=== PATIENT | female | born 1960 | race American Indian/Alaskan Native ===

== ENCOUNTER 2017-03-01 14:00 | Emergency (ER) | payer OTHER ==
[2017-03-01 14:01] VITALS: BMI 28.8
[2017-03-01 14:11] VITALS: TEMP 97.9; O2SAT 98
--- NOTE | 2017-03-01 14:41 | ED PDOC ---
Arrival/HPI - General Chief Complaint: Dizziness/Lightheaded Time Seen by Provider: 03/01/17 14:15 Historian: Patient - History of Present Illness Narrative History of Present Illness (Text): 03/01/17 14:41 This 56 yo F w/PMH sig for HIV, HTN, HLD, iron deficiency anemia, hypokalemia, presents to this ED c/o feeling of both ears are clogged x 1 week. Patient noted feeling dizzy x 2 days. Patient stated she saw her doctor at [facility] for same symptoms last wee, who performed labs. She stated labs were normal. She was referred to see ENT for her symptoms. Patient saw Dr. Noel Wade yesterday. Patient stated Dr. Noel Wade examined her, but he did not prescribe patient medication. Patient stated she wants medication for her dizziness. Denies other complains. Time/Duration: > week Context: Home Past Medical History - Provider Review Nursing Documentation Reviewed: Yes - Infectious Disease Hx of Infectious Diseases: None - Tetanus Immunization Tetanus Immunization: Unknown - Cardiac Hx Cardiac Disorders: Yes Hx Angina: No Hx Atrial Fibrillation: No Hx Cardiac Arrhythmia: No Hx Circulatory Problems: No Hx Congestive Heart Failure: No Hx [place]: No Hx Heart Murmur: No Hx Heart Transplant: No Hx Hypertension: Yes Hx Hypotension: No Hx Internal Defibrillator: No Hx Mitral Valve Prolapse: No Hx Pacemaker: No Hx Peripheral Edema: No Hx Peripheral Vascular Disease: No Other/Comment: Aneurysm - Pulmonary Hx Respiratory Disorders: Yes Hx Chronic Obstructive Pulmonary Disease (COPD): Yes - Neurological Hx Neurological Disorder: No - HEENT Hx HEENT Disorder: Yes Hx Blind: Yes (LEFT EYE BLIND) - Renal Hx Renal Disorder: No - Endocrine/Metabolic Hx Endocrine Disorders: Yes Hx Hypothyroidism: Yes - Hematological/Oncological Hx Anemia: Yes - Integumentary Hx Dermatological Disorder: No - Musculoskeletal/Rheumatological Hx Musculoskeletal Disorders: No Hx Back Pain: Yes - Gastrointestinal Hx Gastrointestinal Disorders: Yes Hx Gastroesophageal Reflux: Yes - Genitourinary/Gynecological Hx Genitourinary Disorders: No - Psychiatric Hx Psychophysiologic Disorder: No Hx Substance Use: No - Surgical History Hx Section: Yes (x4) - Anesthesia Hx Anesthesia: Yes Hx Anesthesia Reactions: No Hx Malignant Hyperthermia: No - Suicidal Assessment Feels Threatened In Home Enviroment: No Family/Social History - Physician Review Nursing Documentation Reviewed: Yes Family/Social History: No Known Family HX Smoking Status: Light Smoker < 10 Cigarettes Daily Hx Alcohol Use: No Hx Substance Use: No Hx Substance Use Treatment: No Allergies/Home Meds Allergies/Adverse Reactions: Allergies No Known Allergies Allergy (Verified 03/01/17 14:09) Home Medications: Home Meds Medication Instructions Recorded Confirmed Ritonavir [Norvir] 200 mg PO BID 05/11/14 03/01/17 Amlodipine Besylate [Norvasc] 10 mg PO DAILY 04/13/16 03/01/17 Benazepril HCl [Lotensin] 10 mg PO DAILY 04/13/16 03/01/17 Emtricitabine/Tenofovir Diso 1 tab PO DAILY 04/13/16 03/01/17 [Truvada 200 MG-300 MG] Ferrous Sulfate [Ferosul] 325 mg PO BID 04/13/16 03/01/17 Levothyroxine [Levoxyl] 200 mcg PO DAILY 04/13/16 03/01/17 Multivitamin Daily 1 tab PO DAILY 04/13/16 03/01/17 Potassium 20 20 meq PO DAILY 04/13/16 03/01/17 Tipranavir [Aptivus] 250 mg PO BID 04/13/16 03/01/17 Review of Systems - Review of Systems Constitutional: Normal. absent: Fatigue, Weight Change, Fevers Eyes: Normal ENT: Other (B/L ears feel clogged) Respiratory: Normal. absent: SOB, Cough Cardiovascular: Normal. absent: Chest Pain, Palpitations Gastrointestinal: Normal. absent: Abdominal Pain, Nausea, Vomiting Genitourinary Female: Normal. absent: Dysuria, Frequency, Hematuria Musculoskeletal: Normal. absent: Arthralgias, Back Pain, Neck Pain Skin: Normal. absent: Rash Neurological: Dizziness. absent: Headache, Focal Weakness, Gait Changes, Speech Changes, Facial Droop, Disequilibrium Endocrine: Normal Hemo/Lymphatic: Normal Psychiatric: Normal Physical Exam Vital Signs Temp Pulse Resp BP Pulse Ox 03/01/17 15:33 68 18 118/79 98 03/01/17 14:10 97.9 F 70 19 120/80 98 Temperature: Afebrile Blood Pressure: Normal Pulse: Regular Respiratory Rate: Normal Appearance: Positive for: Well-Appearing, Non-Toxic, Comfortable Pain Distress: None Mental Status: Positive for: Alert and Oriented X 3 - Systems Exam Head: Present: Atraumatic, Normocephalic Pupils: Present: PERRL Extroacular Muscles: Present: EOMI Conjunctiva: Present: Normal Ears: Present: Normal, NORMAL TM, Normal Canal, Other (No hemotympanum). No: Erythema, TM Bulging, TM Perf Mouth: Present: Moist Mucous Membranes Pharnyx: Present: Normal. No: ERYTHEMA, EXUDATE, TONSILS ENLARGED Nose (External): Present: Atraumatic Nose (Internal): Present: Normal Inspection Neck: Present: Normal Range of Motion. No: Meningeal Signs, Lymphadenopathy Respiratory/Chest: Present: Clear to Auscultation, Good Air Exchange. No: Respiratory Distress, Accessory Muscle Use Cardiovascular: Present: Regular Rate and Rhythm, Normal S1, S2. No: Murmurs Abdomen: Present: Normal Bowel Sounds. No: Tenderness, Distention, Peritoneal Signs Back: Present: Normal Inspection. No: CVA Tenderness Upper Extremity: Present: Normal Inspection, Normal ROM, NORMAL PULSES, Neurovascularly Intact, Capillary Refill < 2s. No: Cyanosis, Edema Lower Extremity: Present: Normal Inspection. No: Edema Neurological: Present: GCS=15, CN II-XII Intact, Speech Normal, Motor Func Grossly Intact, Normal Sensory Function, Normal Cerebellar Funct, Norm Deep Tendon Reflexes, Gait Normal, Memory Normal Skin: Present: Warm, Dry, Normal Color. No: Rashes Psychiatric: Present: Alert, Oriented x 3, Normal Insight, Normal Concentration Medical Decision Making ED Course and Treatment: 03/01/17 16:24 Re-evaluation. Patient feels better. Discussed results and plan with patient who expresses understanding. All questions answered and there is agreement with the plan to discharge home with instructions. Patient stable for discharge. Return if symptoms persist or worsen. Patient stated feeling better. Denies dizziness at this time. Patient has a normal gait. Re-evaluation Time: 16:25 Reassessment Condition: Re-examined, Improved - Medication Orders Current Medication Orders: Discontinued Medications Meclizine HCl (Antivert) 25 mg PO STAT STA Stop: 03/01/17 14:40 Last Admin: 03/01/17 15:09 Dose: 25 mg Meclizine HCl (Antivert) 25 mg PO STAT STA Stop: 03/01/17 15:20 Disposition/Present on Arrival - Present on Arrival Any Indicators Present on Arrival: No History of DVT/PE: No History of Uncontrolled Diabetes: No Urinary Catheter: No History of Decub. Ulcer: No History Surgical Site Infection Following: None - Disposition Have Diagnosis and Disposition been Completed?: Yes Diagnosis: Dizziness, nonspecific Disposition: HOME/ ROUTINE Disposition Time: 16:26 Patient Plan: Discharge Condition: GOOD Discharge Instructions (ExitCare): Dizziness (ED) Additional Instructions: Call Dr. Brittny Wade office for follow up visit, and revaluation. Take medication as instructed. Return to near ER if symptoms worsen. Prescriptions: Meclizine [Meclizine*] 25 mg PO Q6 PRN #30 tab PRN Reason: Dizziness Referrals: Nadja Simpson MD [Primary Care Provider] - Follow up with primary
[2017-03-01 15:33] VITALS: RESP 18
[2017-03-01 16:26] VITALS: BP 121/84; PULSE 65
--- NOTE | 2017-03-01 17:07 | CARD ---
APPROVED REPORT EKG Measurement Heart [id number] <Conclusion> Normal sinus rhythm Nonspecific T wave abnormality Abnormal ECG
== END 2017-03-01 16:30 | disposition home or self-care (01) ==
LOC: ED 14:00
DX: R42 Dizziness and giddiness (principal); I10 Essential (primary) hypertension; D50.9 Iron deficiency anemia, unspecified; Z72.0 Tobacco use

== ENCOUNTER 2017-03-28 09:42 | Inpatient (IN) | payer OTHER ==
[2017-03-28 10:04] VITALS: BMI 28.3
[2017-03-28 11:06] LABS: URINE BILIRUBIN NEGATIVE (NEGATIVE); URINE BLOOD NEGATIVE (NEGATIVE); URINE GLUCOSE (UA) NEGATIVE (NEGATIVE); URINE LEUKOCYTE ESTERASE NEGATIVE Leu/uL (NEGATIVE); URINE NITRATE NEGATIVE (NEGATIVE); URINE PROTEIN TRACE mg/dL (<30 mg/dL); URINE UROBILINOGEN 0.2 E.U./dL (<1 E.U./dL)
[2017-03-28 11:09] LABS: URINE APPEARANCE CLEAR (CLEAR); URINE COLOR YELLOW (YELLOW)
[2017-03-28 11:13] LABS: BASO # 0.01 K/mm3 (0.0-2.0); BASO % 0.1 % (0.0-3.0); GRAN # 12.11 (1.4-6.5); GRAN % 78.5 % (50.0-68.0); HEMOGLOBIN 12.2 gm/dL (12.0-16.0); LYMPH # 2.8 (1.2-3.4); MEAN CORPUSCULAR HEMOGLOBIN 30.4 pg (25.0-35.0); MEAN CORPUSCULAR HGB CONC 33.1 g/dl (31.0-37.0); MEAN PLATELET VOLUME 10.9 fl (7.0-11.0); MONO # 0.5 (0.1-0.6); MONO % 3.4 % (1.0-6.0); PLATELET COUNT 198 10^3/uL (120.0-450.0); RBC 4.01 10^6/uL (3.5-6.1); RED CELL DISTRIBUTION WIDTH 14.6 % (11.5-14.5); WHITE BLOOD COUNT 15.4 10^3/ul (4.5-11.0)
[2017-03-28 11:17] LABS: INR 0.98 (0.93-1.08); PARTIAL THROMBOPLASTIN TIME 25.5 Seconds (23.7-30.8); PROTHROMBIN TIME 10.6 Seconds (9.9-11.8)
[2017-03-28 11:18] LABS: ALB/GLOB RATIO 1.2 (1.1-1.8); ALBUMIN 4.3 g/dL (3.0-4.8); ALT/SGPT 25 U/L (7-56); AST/SGOT 16 U/L (15-39); BLOOD UREA NITROGEN 17 mg/dL (7-21); CALCIUM 9.7 mg/dL (8.4-10.5); GFR AFRICAN-AMERICAN > 60; GFR NON-AFRICAN AMERICAN > 60; LIPASE 79 U/L (23-300)
--- NOTE | 2017-03-28 11:18 | ED PDOC ---
Arrival/HPI - General Historian: Patient - History of Present Illness Time/Duration: 1 week, Other (2days) Symptom Onset: Gradual Symptom Course: Worsening Quality: Aching, Pressure Severity Level: 3 - General Chief Complaint: Chest Pain Time Seen by Provider: 03/28/17 10:20 - History of Present Illness Narrative History of Present Illness (Text): 03/28/17 11:13 56yr old female presents today with chest pain, abdominal pain, leg pain, headaches, and bodyaches. pt states that she has been on antibiotic (augmentin) for ear infection and cough. pt with hx of HIV, states she is not always compliant with medications. pt states she just isnt feeling right today and just hasnt been feeling right for the past couple of days. pt states he has had continued productive cough despite antibiotics. pt states she is occasionally feeling dizzy. denies fevers at home. no urinary symptoms. Denies headache at present time. no other complaints. (Penelope Arguelles) Past Medical History - Provider Review Nursing Documentation Reviewed: Yes - Travel History Have you recently traveled outside [place] w/in the past 3 mons?: No - Infectious Disease Hx of Infectious Diseases: None - Tetanus Immunization Tetanus Immunization: Unknown - Cardiac Hx Cardiac Disorders: Yes Hx Angina: No Hx Atrial Fibrillation: No Hx Cardiac Arrhythmia: No Hx Circulatory Problems: No Hx Congestive Heart Failure: No Hx NH: No Hx Heart Murmur: No Hx Heart Transplant: No Hx Hypertension: Yes Hx Hypotension: No Hx Internal Defibrillator: No Hx Mitral Valve Prolapse: No Hx Pacemaker: No Hx Peripheral Edema: No Hx Peripheral Vascular Disease: No Other/Comment: Aneurysm - Pulmonary Hx Respiratory Disorders: Yes Hx Chronic Obstructive Pulmonary Disease (COPD): Yes - Neurological Hx Neurological Disorder: No - HEENT Hx HEENT Disorder: Yes Hx Blind: Yes (LEFT EYE BLIND) - Renal Hx Renal Disorder: No - Endocrine/Metabolic Hx Endocrine Disorders: Yes Hx Hypothyroidism: Yes - Hematological/Oncological Hx Anemia: Yes - Integumentary Hx Dermatological Disorder: No - Musculoskeletal/Rheumatological Hx Musculoskeletal Disorders: No Hx Back Pain: Yes - Gastrointestinal Hx Gastrointestinal Disorders: Yes Hx Gastroesophageal Reflux: Yes - Genitourinary/Gynecological Hx Genitourinary Disorders: No - Psychiatric Hx Psychophysiologic Disorder: No Hx Substance Use: Yes - Surgical History Hx Section: Yes (x4) Other/Comment: L leg surgery. Uterine biopsy - Anesthesia Hx Anesthesia: Yes Hx Anesthesia Reactions: No Hx Malignant Hyperthermia: No - Suicidal Assessment Feels Threatened In Home Enviroment: No Family/Social History - Physician Review Nursing Documentation Reviewed: Yes Family/Social History: Unknown Family HX Smoking Status: Heavy Smoker > 10 Cigarettes Daily Hx Alcohol Use: No Hx Substance Use: Yes Substance used: cocaine/heroine Hx Substance Use Treatment: No Allergies/Home Meds Allergies/Adverse Reactions: Allergies No Known Allergies Allergy (Verified 03/01/17 14:09) Home Medications: Home Meds Medication Instructions Recorded Confirmed Ritonavir [Norvir] 0 mg PO BID 05/11/14 03/28/17 Amlodipine Besylate [Norvasc] 10 mg PO DAILY 04/13/16 03/28/17 Benazepril HCl [Lotensin] 10 mg PO DAILY 04/13/16 03/28/17 Emtricitabine/Tenofovir Diso 1 tab PO DAILY 04/13/16 03/28/17 [Truvada 200 MG-300 MG] Levothyroxine [Levoxyl] 200 mcg PO DAILY 04/13/16 03/28/17 Multivitamin Daily 1 tab PO DAILY 04/13/16 03/28/17 Potassium 20 20 meq PO DAILY 04/13/16 03/28/17 Tipranavir [Aptivus] 250 mg PO BID 04/13/16 03/28/17 Amoxicillin/Potassium Clav 1 tab PO BID 03/28/17 03/28/17 [Amoxicillin/Clavulanate Potassium 875 mg-125 ] Atorvastatin [Lipitor] 20 mg PO DAILY 03/28/17 03/28/17 Emtricitabine/Tenofov Alafenam 1 each PO DAILY 03/28/17 03/28/17 [Descovy 200-25 mg Tablet] Review of Systems - Review of Systems Constitutional: Fatigue. absent: Fevers ENT: Sinus Congestion. absent: Sore Throat Respiratory: Cough. absent: SOB Cardiovascular: Chest Pain Gastrointestinal: Abdominal Pain. absent: Nausea, Vomiting Genitourinary Female: absent: Dysuria Musculoskeletal: Arthralgias. absent: Back Pain, Neck Pain Skin: absent: Rash, Pruritis Neurological: Headache, Dizziness Psychiatric: absent: Anxiety, Depression Physical Exam Vital Signs Reviewed: Yes Temperature: Afebrile Blood Pressure: Normal Pulse: Regular Respiratory Rate: Normal Appearance: Positive for: Well-Appearing, Non-Toxic, Comfortable Pain Distress: None Mental Status: Positive for: Alert and Oriented X 3 - Systems Exam Head: Present: Atraumatic Conjunctiva: Present: Normal Ears: Present: Normal, NORMAL TM. No: Erythema Mouth: Present: Moist Mucous Membranes. No: Dry, Drooling Pharnyx: Present: Normal Nose (Internal): Present: Normal Inspection Neck: Present: Normal Range of Motion Respiratory/Chest: Present: Good Air Exchange. No: Clear to Auscultation, Respiratory Distress, Accessory Muscle Use, Wheezes, Retracting, Rhonchi, Tachypneic, Tender to Palpation Cardiovascular: Present: Regular Rate and Rhythm. No: Murmurs Abdomen: No: Tenderness, Distention, Rebound, Guarding Back: Present: Normal Inspection Upper Extremity: Present: Normal Inspection, Normal ROM Lower Extremity: Present: Normal Inspection. No: CALF TENDERNESS, Tenderness Neurological: Present: GCS=15, Speech Normal, Gait Normal Skin: Present: Warm, Dry, Normal Color. No: Rashes Psychiatric: Present: Alert, Oriented x 3 Vital Signs Temp Pulse Resp BP Pulse Ox 03/28/17 19:40 53 L 16 140/101 H 98 03/28/17 17:54 98.5 F 62 18 150/85 100 03/28/17 14:30 88 18 154/89 H 98 03/28/17 12:30 80 16 151/82 H 99 03/28/17 10:22 51 L 19 158/90 H 97 03/28/17 10:06 98.1 F 59 L 18 142/88 96 Medical Decision Making ED Course and Treatment: 03/28/17 11:16 56yr old female with cp and cough, abdominal pain. currently on augmentin. cbc: wbc; 15.4 cmp: glucose; 113 trop: wnl ekg; normal sinus rhythm at 65 bpm normal axis normal intervals no ST elevations 03/28/17 11:22 chest xray Creator : Agustina Porras MD IMPRESSION: No active pulmonary disease. Borderline cardiomegaly. blood cultures pending. rocephin and zithromax started IV. though negative chest xray. will treat for CAP; as patient has been augmentin, with continued cough, now with leukocytosis. will admit observational status to med/surg for weakness, leukocytosis, cough in HIV + patient with failure of outpatient abx. ? CAP. case discussed with dr. pierce. Impression; weakness, cough, leukocytosis, admit observational status to med/surg (Penelope Arguelles) - Lab Interpretations Lab Results: 03/28/17 11:00 03/28/17 11:00 Lab Results 03/28/17 11:30: Urine HCG, Qual Negative 03/28/17 11:00: WBC 15.4 H D, RBC 4.01, Hgb 12.2, Hct 36.9, MCV 92.0, MCH 30.4, MCHC 33.1, RDW 14.6 H, Plt Count 198, MPV 10.9, Gran % 78.5 H, Lymph % (Auto) 18.0 L, [place] % (Auto) 3.4, Eos % (Auto) 0.0 L, Baso % (Auto) 0.1, Gran # 12.11 H , Lymph # 2.8, [place] # 0.5, Eos # 0.0, Baso # 0.01 03/28/17 11:00: Sodium 145, Potassium 3.9, Chloride 108 H, Carbon Dioxide 26, Anion Gap 15, BUN 17, Creatinine 0.8, Est GFR ( Amer) > 60, Est GFR (Non- Af Amer) > 60, Random Glucose 113 H, Calcium 9.7, Total Bilirubin 0.4, AST 16, ALT 25, Alkaline Phosphatase 89, Lactate Dehydrogenase 462, Total Creatine Kinase 70, Troponin I < 0.01, Total Protein 7.8, Albumin 4.3, Globulin 3.5, Albumin/Globulin Ratio 1.2, Lipase 79 03/28/17 11:00: Urine Color Yellow, Urine Appearance Clear, Urine pH 6.0, Ur Specific [place] 1.020, Urine Protein Trace H, Urine Glucose (UA) Negative, Urine Ketones Negative, Urine Blood Negative, Urine Nitrate Negative, Urine Bilirubin Negative, Urine Urobilinogen 0.2, Ur Leukocyte Esterase Negative, Urine RBC Negative, Urine WBC 0 - 2, Ur Epithelial Cells 0 - 2, Urine Bacteria Trace 03/28/17 11:00: PT 10.6, INR 0.98, APTT 25.5 - RAD Interpretation Radiology Orders: 03/28/17 10:22 CHEST PORTABLE [RAD] Stat - Medication Orders Current Medication Orders: Hydroxyzine HCl (Atarax) 25 mg PO Q6H PRN PRN Reason: Itching / Pruritus Discontinued Medications Ceftriaxone Sodium (Rocephin 1 Gram Ivpb) 1 gm in 100 mls @ 200 mls/hr IVPB STAT STA PRN Reason: Protocol Stop: 03/28/17 18:07 Last Admin: 03/28/17 19:37 Dose: 200 mls/hr Azithromycin (Zithromax 500mg In Ns) 500 mg in 250 mls @ 167 mls/hr IVPB STAT STA PRN Reason: Protocol Stop: 03/28/17 19:07 Disposition/Present on Arrival - Present on Arrival Any Indicators Present on Arrival: No History of DVT/PE: No History of Uncontrolled Diabetes: No Urinary Catheter: No History of Decub. Ulcer: No History Surgical Site Infection Following: None - Disposition Have Diagnosis and Disposition been Completed?: Yes Disposition Time: 17:15 Patient Plan: Observation - Disposition Diagnosis: Weakness, Cough, Leukocytosis Disposition: HOSPITALIZED Condition: FAIR
--- NOTE | 2017-03-28 11:20 | RAD ---
HISTORY: Chest pain COMPARISON: 04/12/2016. FINDINGS: LUNGS: The lungs are well inflated and clear. PLEURA: No significant pleural effusion identified, no pneumothorax apparent. CARDIOVASCULAR: There is borderline cardiomegaly. OSSEOUS STRUCTURES: No significant abnormalities. VISUALIZED UPPER ABDOMEN: Normal. OTHER FINDINGS: None. IMPRESSION: No active pulmonary disease. Borderline cardiomegaly.
[2017-03-28 11:23] LABS: URINE BACTERIA TRACE (NEG); URINE EPITHELIAL CELLS 0 - 2 /hpf (0-5); URINE RBC NEGATIVE /hpf (0-2); URINE WBC 0 - 2 /hpf (0-6)
[2017-03-28 11:30] LABS: TROPONIN I < 0.01 ng/mL
[2017-03-28] MEDS ORDERED: cefTRIAXone 1 gm 1 GM/100 ML BAG IVPB STA (17:38)
[2017-03-28] MEDS ORDERED: Azithromycin 500MG/NS 250ml 500 MG/250 ML BAG IVPB STA (17:38)
--- NOTE | 2017-03-28 20:57 | CARD ---
APPROVED REPORT EKG Measurement Heart [id number] <Conclusion> Normal sinus rhythm Nonspecific T wave abnormality Abnormal ECG
[2017-03-28] MEDS ORDERED: Albuterol-Ipratrop 3 mg / 0.5 (3 ml) UD IH PRN (21:27)
[2017-03-28 21:35] VITALS: O2SAT 99
--- NOTE | 2017-03-28 21:45 | CP.PCM.HP ---
<DAIN SOLOMON - Last Filed: 03/28/17 23:06> History of Present Illness - History of Present Illness History of Present Illness: Pt is a 56 yo F with a PMHx of HIV, hypothyroidism, HTN, possible AAA, anemia, HLD presents with cc of CP and generalized weakness. Pt states that non- localized CP started last night of insidious onset along with generalized body aches and weakness. In addition, pt c/o chills, fevers, diaphoresis, and some SOB. Pt states that pain is similar to past occurrences. Pt denied any alleviating or aggravating factors. In the ED, pt reports CP has currently subsided, but body and leg discomfort/aches persist. Pt states that generalized weakness began after starting Medrol dose pack for otitis media 3 days ago. Pt is currently on day 3 of Augmentin for treatment of otitis media. Pt initially complained of b/l ear pain and productive cough. Pt states that the ear pain is R>L, but is steadily improving. Pt also c/o of itching and rash on b/l hands and fingers, in which she is currently being treated with permethrin topical, erythromycin topical, and ivermectin (completed). Pt denied palpatations, wheezing, abdominal pain, n/v, constipation, diarrhea, dysuria, or polyuria. PMHx: HIV, Left eye blindness, hypothyroidism, COPD, HTN, possible AAA, anemia, HLD Sur c-sections, left ankle surgery, uterine surgery FHx: prostate cancer, DM, HTN, HLD, CKD SH: 10 cig/day for 40 yrs, heroine and cocaine use (last used 8 yrs ago), denied alcohol use All: NKDA Medications: Tipranavir 250 mg BID Synthroid 200 mcg daily Benazepril 10 mg daily Lipitor 20 mg HS Norvasc 10 mg daily Emtricitabine/Tenofor daily Ritonavir 100 mg daily KCl 20 meq PO daily Multivitamin Medrol dose pack (finished 2 days) Erythromycin 2% topical Permethrin 5% topical Ivermectin 3 mg QID Augmentin 875-125 mg BID Present on Admission - Present on Admission Any Indicators Present on Admission: No Review of Systems - Review of Systems All systems: reviewed and no additional remarkable complaints except (hpi) Past Patient History - Infectious Disease Hx of Infectious Diseases: None - Tetanus Immunizations Tetanus Immunization: Unknown - Past Medical History & Family History Past Medical History?: Yes - Past Social History Smoking Status: Heavy Smoker > 10 Cigarettes Daily - CARDIAC Hx Cardiac Disorders: Yes Hx Angina: No Hx Atrial Fibrillation: No Hx Cardia Arrhythmia: No Hx Circulatory Problems: No Hx Congestive Heart Failure: No Hx Heart Attack: No Hx Heart Murmur: No Hx Heart Transplant: No Hx Hypertension: Yes Hx Hypotension: No Hx Internal Defibrillator: No Hx Mitral Valve Prolapse: No Hx Pacemaker: No Hx Peripheral Edema: No Hx Peripheral Vascular Disease: No Other/Comment: Aneurysm - PULMONARY Hx Respiratory Disorders: Yes Hx Chronic Obstructive Pulmonary Disease (COPD): Yes - NEUROLOGICAL Hx Neurological Disorder: No - HEENT Hx HEENT Problems: Yes Hx Blind: Yes (LEFT EYE BLIND) - RENAL Hx Chronic Kidney Disease: No - ENDOCRINE/METABOLIC Hx Endocrine Disorders: Yes Hx Hypothyroidism: Yes - HEMATOLOGICAL/ONCOLOGICAL Hx Anemia: Yes - INTEGUMENTARY Hx Dermatological Problems: No - MUSCULOSKELETAL/RHEUMATOLOGICAL Hx Musculoskeletal Disorders: No Hx Back Pain: Yes - GASTROINTESTINAL Hx Gastrointestinal Disorders: Yes Hx Gastroesophageal Reflux: Yes - GENITOURINARY/GYNECOLOGICAL Hx Genitourinary Disorders: No - PSYCHIATRIC Hx Psychophysiologic Disorder: No Hx Substance Use: Yes - SURGICAL HISTORY Hx Section: Yes (x4) Other/Comment: L leg surgery. Uterine biopsy - ANESTHESIA Hx Anesthesia: Yes Hx Anesthesia Reactions: No Hx Malignant Hyperthermia: No Meds Allergies/Adverse Reactions: Allergies Allergy/AdvReac Type Severity Reaction Status Date / Time No Known Allergies Allergy Verified 03/01/17 14:09 Physical Exam - Constitutional Appears: No Acute Distress - Head Exam Head Exam: ATRAUMATIC, NORMOCEPHALIC - Eye Exam Eye Exam: EOMI, Normal appearance, PERRL. absent: Conjunctival injection, Periorbital swelling - ENT Exam ENT Exam: Mucous Membranes Moist Additional comments: B/L TM erythema R>L, no bulging, pus, injection, external auditory canal non- erythematous - Neck Exam Neck exam: Positive for: Full Rom. Negative for: Tenderness, Thyromegaly - Respiratory Exam Respiratory Exam: Clear to Auscultation Bilateral. absent: Rales, Rhonchi, Wheezes - Cardiovascular Exam Cardiovascular Exam: RRR, +S1, +S2. absent: Diastolic murmur, Gallop, Rubs, Systolic Murmur - GI/Abdominal Exam GI & Abdominal Exam: Distended, Soft. absent: Firm, Guarding, Rebound, Tenderness - Extremities Exam Extremities exam: Positive for: full ROM. Negative for: calf tenderness, joint swelling, pedal edema, tenderness - Neurological Exam Neurological exam: Alert, CN II-XII Intact, Oriented x3, Reflexes Normal - Psychiatric Exam Psychiatric exam: Normal Affect - Skin Skin Exam: Dry, Intact, Rash Additional comments: Scaling rash in webs of fingers b/l Results - Vital Signs Recent Vital Signs: Last Vital Signs Temp 98.5 F 03/28/17 17:54 Pulse 53 L 03/28/17 19:40 Resp 16 03/28/17 21:34 BP 140/101 H 03/28/17 19:40 Pulse Ox 99 03/28/17 21:34 - Labs Result Diagrams: 03/28/17 11:00 03/28/17 11:00 Assessment & Plan - Assessment and Plan (Free Text) Assessment: 56 yo female with PMHx of HIV, hypothyroidism, HTN, HLD, and COPD to be admitted for evaluation and treatment of generalized weakness 2/2 acute side effects of polypharmacy and CP. 1. Generalized Body Aches/Weakness -Leukocytosis likely due to side effect of methylprednisolone -Hold methylprednisolone -No evidence of dehydration as BUN/Cr and electrolytes normal -IVF 1L at 100 ml/hr -CK 70 r/o rhabdomyolysis 2. Otitis Media -Mild erythema appreciated, no swelling, pus, or fullness -Cont. PO Augmentin 3. Atypical Chest Pain -Serial troponin (1st trop negative) -EKG shows NSR with some flattening of T wave -CXR shows borderline cardiomegaly -Echocardiogram from 11/2015 shows EF 61.7% -Cont to monitor for acute onset CP 4. Leg Pain -Pt reports only discomfort in b/l legs, not pain; no evidence of swelling or erythema -Possibly 2/2 methylprednisolone -Will monitor 5. R/o scabies -Follow treatment plan as per derm -Cont topical erythromycin and permethrin -Hydroxyzine for pruritis -Contact precautions -ID consulted 6. HIV -Cont Tipranavir, Emtricitabine/Tenofor, Ritonavir 7. HTN -Cont Benazepril and Norvasc -HHD 8. Hypothyroidism -Cont synthroid 9. COPD -Duoneb Q6H PRN 10. H/o recurrent hypokalemia -Cont KCl 20 meq daily, multivitamin 11. Tobacco abuse -Nicoderm 14 mg patch -Counselled on risks of tobacco use and advised cessation 12. GI/DVT PPx -Protonix -SCDs Pt was seen and discussed in detail with Dr. Shook. <Sebas Shook Q - Last Filed: 03/28/17 23:17> Results - Vital Signs Recent Vital Signs: Last Vital Signs Temp 98.5 F 03/28/17 23:07 Pulse 53 L 03/28/17 23:07 Resp 16 03/28/17 23:07 BP 140/101 H 03/28/17 23:07 Pulse Ox 99 03/28/17 21:34 - Labs Result Diagrams: 03/28/17 11:00 03/28/17 11:00 Attending/Attestation - Attestation I have personally seen and examined this patient.: Yes I have fully participated in the care of the patient.: Yes I have reviewed all pertinent clinical information: Yes
[2017-03-28] MEDS ORDERED: Pneumococcal 23-Valent Vaccine IM ONE (23:15)
[2017-03-28] MEDS: Amoxicillin-Clav 875-125 mg Tab PO SCH (23:17)
[2017-03-29] MEDS: [UNRECOGNIZED DRUG - OTHER] PO SCH ×3 (02:25→17:10)
[2017-03-29] MEDS: Sodium Chloride 0.9% 1,000 ML IV SCH ×2 (02:27→10:38)
[2017-03-29] MEDS: Levothyroxine 200 MCG TAB PO SCH (06:45)
[2017-03-29 07:16] LABS: HEMOGLOBIN 11.3 gm/dL (12.0-16.0); MEAN CELL VOLUME 92.4 fL (80.0-105.0); MEAN CORPUSCULAR HEMOGLOBIN 29.7 pg (25.0-35.0); MEAN CORPUSCULAR HGB CONC 32.1 g/dl (31.0-37.0); MEAN PLATELET VOLUME 10.7 fl (7.0-11.0); RBC 3.81 10^6/uL (3.5-6.1); WHITE BLOOD COUNT 11.5 10^3/ul (4.5-11.0)
[2017-03-29 08:19] LABS: BLOOD UREA NITROGEN 14 mg/dL (7-21); CALCIUM 8.8 mg/dL (8.4-10.5); GFR AFRICAN-AMERICAN > 60; GFR NON-AFRICAN AMERICAN > 60
[2017-03-29 08:28] VITALS: RESP 20
[2017-03-29 08:37] LABS: TROPONIN I < 0.01 ng/mL
[2017-03-29 09:49] LABS: HDL CHOLESTEROL 44 mg/dL (29-60); MAGNESIUM 1.8 mg/dL (1.7-2.2)
[2017-03-29 10:00] LABS: LDL CHOLESTEROL 97 mg/dL (0-129)
[2017-03-29 10:10] LABS: FREE T4 0.53 ng/dL (0.78-2.19); T4 4.4 ug/dL (5.5-11.0)
[2017-03-29] MEDS: Potassium Chloride 40 mEq/30 ml LIQ UD PO STA ×2 (10:34→11:00)
[2017-03-29] MEDS: Multivitamin Therapeutic Tab PO SCH ×2 (10:37→10:56)
[2017-03-29] MEDS: ETHANOL TP SCH (10:37)
[2017-03-29] MEDS: Emtricitabine-Tenofovir 200 mg-300 mg Tab PO SCH ×2 (10:37→10:57)
[2017-03-29] MEDS: ERYTHROMYCIN BASE TP SCH (10:37)
[2017-03-29] MEDS: Amoxicillin-Clav 875-125 mg Tab PO SCH ×2 (10:37→10:59)
[2017-03-29] MEDS: Permethrin 5% Cream(60 gm) TOP SCH (10:56)
--- NOTE | 2017-03-29 12:38 | CT ---
PROCEDURE: CT HEAD WITHOUT CONTRAST. HISTORY: dizziness COMPARISON: Prior head CT dated 04/12/2016 TECHNIQUE: Axial computed tomography images were obtained through the head/brain without intravenous contrast. Radiation dose: Total exam DLP = 701 mGy-cm. This CT exam was performed using one or more of the following dose reduction techniques: Automated exposure control, adjustment of the mA and/or kV according to patient size, and/or use of iterative reconstruction technique. FINDINGS: HEMORRHAGE: No intracranial hemorrhage. BRAIN: No mass effect or edema. Trace diffuse cerebral atrophy is reiterated however there is no prominent volume loss and there is no mass effect or cortical edema identified throughout. Post fossa contents and brainstem appear normal in overall density. VENTRICLES: Unremarkable. No hydrocephalus. CALVARIUM: Unremarkable. PARANASAL SINUSES: Unremarkable as visualized. No significant inflammatory changes. MASTOID AIR CELLS: Interval right mastoiditis identified. OTHER FINDINGS: None. IMPRESSION: Stable head CT exhibiting only limited diffuse cerebral atrophy once again. Brain examination unremarkable no acute findings appreciated. Follow-up MRI or CT are available if clinically warranted. Interval right mastoiditis identified.
[2017-03-29] MEDS ORDERED: Potassium Chloride 20 mEq ER Tab PO STA (13:05)
--- NOTE | 2017-03-29 14:22 | CT ---
PROCEDURE: CT SINUSES WITHOUT CONTRAST HISTORY: r/o sinusitis, mastoiditis COMPARISON: None TECHNIQUE: Contiguous axial CT images of the paranasal sinuses were obtained. Coronal and sagittal reformats were generated. Radiation dose: Total exam DLP = 316 mGy-cm. This CT exam was performed using one or more of the following dose reduction techniques: Automated exposure control, adjustment of the mA and/or kV according to patient size, and/or use of iterative reconstruction technique. FINDINGS: FRONTAL SINUSES: The bilateral frontal sinuses are clear however the right frontal sinus appears hypo developed. The bilateral frontal recesses appear widely patent. ETHMOID SINUSES: The bilateral ethmoid air cells are well developed and aerated diffusely. The sphenoid ethmoidal recesses appear widely patent. SPHENOID SINUSES: Well-developed and aerated. MAXILLARY SINUSES: The right maxillary sinus is remarkable for a small likely retention cyst or polyp is not completely excluded here. Left maxillary sinus is clear. The bilateral maxillary ostia appear patent. SINUS DRAINAGE: Osteomeatal complexes, frontal recesses and sphenoethmoid recesses clear. NASAL SEPTUM: Deviated to the right. No destructive lesion. MASS: None. SKULL BASE: Unremarkable. TEMPORAL BONES: Middle ears and mastoid grossly unremarkable. 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 Milder right mastoiditis. Minimal left mastoiditis. IMPRESSION: Small right mastoid sinus polyp or cyst is identified with remaining remaining impairs sinuses clear as discussed above. The right frontal sinus appears hypo developed. Right nasal septal deviation.
--- NOTE | 2017-03-29 16:48 | CP.PCM.PN ---
<LienSkyler - Last Filed: 03/29/17 16:49> Subjective - Date & Time of Evaluation Date of Evaluation: 03/29/17 Time of Evaluation: 09:00 - Subjective Subjective: Hospital Course: Ms. Bowers is a 56 y/o woman with a past medical history admitted to the hospitalist service following presentation to ED for chest pain and generalized weakness. The pt states that she had new-onset generalized chest pain and nonspecific weakness/lethargy last night. She describes the leg pain as shooting in quality, and diffuse. Associated symptoms included myalgias, fever, chills, diaphoresis, and mild dyspnea. On admission, the patient complains of lightheadedness, dizziness, visual changes described as spots, and ear fullness worse on the R ear. The patient is currently being followed by a provider for a chronic malignant otitis media, she in 3 days into a Medrol dose pack and amoxicillin/clavulanic acid. She has no hx of migraine PERSAUD. She notes hx of constipation. She also notes itching over her hands, bilaterally. She denies nausea, vomiting, headache, chest pain, diarrhea, dysuria or other urinary complaints on evaluation. She notes ongoing bilateral LE pain and feeling of weakness in her legs. She states that she is hungry following her first meal today and requests a second breakfast tray. Patient medical history is significant for HIV, dementia, HCV infection, abdominal aortic aneurysm, hypothyroid, HTN, and dyslipidemia. The patient has a long history of medical non-compliance. She denies drug use and alcohol use. She smokes 1 ppd. She has a history of crack-cocaine use (pipe, denies IV), but has not used in 8 years. Medical history is limited secondary to hx of dementia. HPI: Patient s&e at bedside. Currently, her CP is better as well as her dizziness, but she still complains of b/l LE weakness. CT Head has been ordered. Objective - Vital Signs/Intake and Output Vital Signs (last 24 hours): Temp Pulse Resp BP Pulse Ox 98.7 F 56 L 20 131/90 99 03/29/17 07:30 03/29/17 07:30 03/29/17 07:30 03/29/17 07:30 03/29/17 07:30 - Medications Medications: Current Medications Amlodipine Besylate (Norvasc) 10 mg PO DAILY RON Last Admin: 03/29/17 10:59 Dose: Not Given Atorvastatin Calcium (Lipitor) 20 mg PO DAILY [facility] Last Admin: 03/29/17 10:59 Dose: Not Given Doxycycline Hyclate (Doryx) 100 mg PO Q12 RON PRN Reason: Protocol Stop: 04/07/17 22:01 Emtricitabine/Tenofovir (Truvada 200 Mg-300 Mg) 1 tab PO DAILY [facility] Last Admin: 03/29/17 10:57 Dose: Not Given Hydroxyzine HCl (Atarax) 25 mg PO Q6H PRN PRN Reason: Itching / Pruritus Sodium Chloride (Sodium Chloride 0.9%) 1,000 mls @ 100 mls/hr IV .Q10H [facility] Last Admin: 03/29/17 10:38 Dose: 100 mls/hr Piperacillin Sod/Tazobactam Sod (Zosyn 3.375 In Ns 100ml) 100 mls @ 200 mls/hr IVPB Q6 RON PRN Reason: Protocol Stop: 04/12/17 18:01 Levothyroxine Sodium (Synthroid) 200 mcg PO 0600 [facility] Last Admin: 03/29/17 06:45 Dose: 200 mcg Lisinopril (Zestril) 10 mg PO DAILY [facility] Last Admin: 03/29/17 10:57 Dose: Not Given Multivitamins (Thera Tab) 1 tab PO DAILY [facility] Last Admin: 03/29/17 10:56 Dose: Not Given Nicotine (Nicoderm Cq) 1 patch TD DAILY [facility] Last Admin: 03/29/17 10:59 Dose: Not Given Tipranavir [Aptivus] (250 Mg- Home Med) 250 mg PO BID [facility] Last Admin: 03/29/17 10:38 Dose: Not Given Non-Formulary Medication (Erythromycin Base/Ethanol [Erythromycin 2% Gel]) 30 gm TP DAILY [facility] Last Admin: 03/29/17 10:37 Dose: Not Given Pantoprazole Sodium (Protonix Inj) 40 mg IVP DAILY [facility] Last Admin: 03/29/17 10:34 Dose: 40 mg Permethrin (Permethrin 5% Cream) 0 gm TOP DAILY [facility] Last Admin: 03/29/17 10:56 Dose: Not Given Ritonavir (Norvir) 100 mg PO BID [facility] Last Admin: 03/29/17 10:59 Dose: Not Given - Labs Labs: PT 10.6 Seconds (9.9-11.8) 03/28/17 11:00 INR 0.98 (0.93-1.08) 03/28/17 11:00 APTT 25.5 Seconds (23.7-30.8) 03/28/17 11:00 - Additional Findings Additional findings: Vitals: T 98.7 HR 56 RR 20 BP 131/90 General: well-appearing, well-nourished, woman in NAD. Afebrile. HEENT: head atraumatic, normocephalic. L eye external exam significant for . Blind in L eye. Neck: good active ROM without pain. No JVD noted bilaterally. Lungs: normal work of breathing. No retractions or accessory m. use. Heart: Abdomen: Normal bowel sounds. Soft, NT. Distended appearance. No palpable spleen. No fluid wave appreciated. MSK: Skin: multiple pruritic 5mm linear burrows over interdigital web spaces bilaterally. No palmar erythema. Examination of nails and knuckles was normal. No discoloration of bilateral LEs. No pitting edema bilaterally. 2+ DP pulses bilaterally. Neuro: AOx3. Normal facial symmetry. Moves extremities spontaneously and across midline. Follows commands. Normal speech. Psych: Normal affect and mood. Assessment and Plan - Assessment and Plan (Free Text) Assessment: 56 yo female with PMHx of HIV, hypothyroidism, HTN, HLD, and COPD to be admitted for evaluation and treatment of generalized weakness 2/2 acute side effects of polypharmacy and CP. 1. Generalized Body Aches/Weakness -Leukocytosis likely due to side effect of methylprednisolone - resolved -IVF 1L at 100 ml/hr -CK 70 r/o rhabdomyolysis 2. Otitis Media -Mild erythema appreciated, no swelling, pus, or fullness -Cont. PO Augmentin -CT head shows OM, f/u o/p with MRI 3. Atypical Chest Pain - resolved - Likely non-cardiac -Tropes negative X 3 -EKG shows NSR with some flattening of T wave -CXR shows borderline cardiomegaly -Echocardiogram from 11/2015 shows EF 61.7% 4. Leg Pain -Pt reports only discomfort in b/l legs, not pain; no evidence of swelling or erythema -Possibly 2/2 methylprednisolone -Will monitor 5. R/o scabies -Follow treatment plan as per derm -Cont topical erythromycin and permethrin -Hydroxyzine for pruritis -Contact precautions -ID consulted -Isolation 6. HIV -Cont Tipranavir, Emtricitabine/Tenofor, Ritonavir 7. HTN -Cont Benazepril and Norvasc -HHD 8. Hypothyroidism -Cont synthroid 9. COPD -Duoneb Q6H PRN 10. H/o recurrent hypokalemia -Cont KCl 20 meq daily, multivitamin 11. Tobacco abuse -Nicoderm 14 mg patch -Counselled on risks of tobacco use and advised cessation 12. GI/DVT PPx -Protonix -SCDs <Tio Morrisseya - Last Filed: 03/29/17 17:53> Objective - Vital Signs/Intake and Output Vital Signs (last 24 hours): Temp Pulse Resp BP Pulse Ox 98.7 F 56 L 20 131/90 99 03/29/17 07:30 03/29/17 07:30 03/29/17 07:30 03/29/17 07:30 03/29/17 07:30 - Medications Medications: Current Medications Amlodipine Besylate (Norvasc) 10 mg PO DAILY [facility] Last Admin: 03/29/17 10:59 Dose: Not Given Atorvastatin Calcium (Lipitor) 20 mg PO DAILY [facility] Last Admin: 03/29/17 10:59 Dose: Not Given Doxycycline Hyclate (Doryx) 100 mg PO Q12 RON PRN Reason: Protocol Stop: 04/07/17 22:01 Emtricitabine/Tenofovir (Truvada 200 Mg-300 Mg) 1 tab PO DAILY [facility] Last Admin: 03/29/17 10:57 Dose: Not Given Hydroxyzine HCl (Atarax) 25 mg PO Q6H PRN PRN Reason: Itching / Pruritus Sodium Chloride (Sodium Chloride 0.9%) 1,000 mls @ 100 mls/hr IV .Q10H [facility] Last Admin: 03/29/17 10:38 Dose: 100 mls/hr Piperacillin Sod/Tazobactam Sod (Zosyn 3.375 In Ns 100ml) 100 mls @ 200 mls/hr IVPB Q6 RON PRN Reason: Protocol Stop: 04/12/17 18:01 Last Admin: 07/18/17 17:10 Dose: 200 mls/hr Levothyroxine Sodium (Synthroid) 200 mcg PO 0600 [facility] Last Admin: 03/29/17 06:45 Dose: 200 mcg Lisinopril (Zestril) 10 mg PO DAILY [facility] Last Admin: 03/29/17 10:57 Dose: Not Given Multivitamins (Thera Tab) 1 tab PO DAILY [facility] Last Admin: 03/29/17 10:56 Dose: Not Given Nicotine (Nicoderm Cq) 1 patch TD DAILY [facility] Last Admin: 03/29/17 10:59 Dose: Not Given Tipranavir [Aptivus] (250 Mg- Home Med) 250 mg PO BID [facility] Last Admin: 03/29/17 17:10 Dose: Not Given Non-Formulary Medication (Erythromycin Base/Ethanol [Erythromycin 2% Gel]) 30 gm TP DAILY [facility] Last Admin: 03/29/17 10:37 Dose: Not Given Pantoprazole Sodium (Protonix Inj) 40 mg IVP DAILY [facility] Last Admin: 03/29/17 10:34 Dose: 40 mg Permethrin (Permethrin 5% Cream) 0 gm TOP DAILY [facility] Last Admin: 03/29/17 10:56 Dose: Not Given Ritonavir (Norvir) 100 mg PO BID [facility] Last Admin: 03/29/17 17:09 Dose: Not Given - Labs Labs: PT 10.6 Seconds (9.9-11.8) 03/28/17 11:00 INR 0.98 (0.93-1.08) 03/28/17 11:00 APTT 25.5 Seconds (23.7-30.8) 03/28/17 11:00 Attending/Attestation - Attestation I have personally seen and examined this patient.: Yes I have fully participated in the care of the patient.: Yes I have reviewed all pertinent clinical information, including history, physical exam and plan: Yes Notes (Text): 03/29/17 17:48 Attending note; Patient seen and examined with resident. Patient is a 56-year-old female admitted with generalized weakness/gait instability. Patient Has multiple medical problems including HIV, aortic aneurysm, mild cognitive impairment, mastoiditis, hypertension,hypothyroidism and hyperlipidemia. CT head is negative. CT of the sinus shows mastoiditis. Currently on IV doxycycline and Zosyn. Patient failed outpatient by mouth Augmentin. Continue HIV medications. ID evaluation appreciated. chest x-rays negative. CT chest ordered. Atypical chest discomfort; cardiac enzymes negative. physical therapy evaluation requested. ENT evaluation pending. upon discharge the patient will follow-up with infectious disease specialist. 03/29/17 17:52
[2017-03-29] MEDS: Piperacillin/Tazobact 3.375 gm 100 ML IVPB SCH (17:10)
[2017-03-29 19:30] LABS: BARBITURATES, UR NEGATIVE (NEGATIVE); BENZODIAZEPINES, UR NEGATIVE (NEGATIVE); OPIATES, UR NEGATIVE (NEGATIVE)
[2017-03-29 20:17] LABS: PHENCYCLIDINE, UR NEGATIVE (NEGATIVE)
--- NOTE | 2017-03-30 01:58 | CON ---
DATE: 03/29/2017 The patient is in room 564, bed 2, was seen earlier this morning. CHIEF COMPLIANT: Generalized weakness and aches and pains times several days. HISTORY OF PRESENT ILLNESS: This is a 56-year-old female known to me with previous admission. The patient has HIV and AIDS. Her low CD4 count in the past less than 200 at 13% in 2013. The patient was again in hospital in 2016, had a CD4 count of 28% at 844 at that time. The patient also with chronic obstructive lung disease and hypertension. The patient also has left eye blindness and hypothyroidism and pulmonary nodules in the past, and has had left ankle surgery, with no known allergies, admitted on this admission with cough, weakness and was found have leukocytosis. PAST MEDICAL HISTORY: Significant for HIV and AIDS and chronic obstructive lung disease, hypertension, left eye blindness, hypothyroidism, and pulmonary nodules. PAST SURGICAL HISTORY: Significant for left ankle surgery. ALLERGIES: THE PATIENT HAS NO KNOWN ALLERGIES. MEDICATIONS: Reviewed. Her HIV medication listed are reviewed. REVIEW OF SYSTEMS: Reveals occasion of headache and no fevers documented here. She states she thinks she had fevers at home. She is very poor historian. She does not know her doctor's name, her HIV doctor or her primary doctor's name, who takes care of her. She does not know her HIV medication. She is noncompliant with her HIV medications and extremely poor historian. PHYSICAL EXAMINATION: GENERAL: She is in bed. Overall, she appears chronically ill. Poor hygiene. VITAL SIGNS: Temperature of 98, blood pressure is 112/70, respiratory rate of 16. HEENT: Unremarkable. NECK: Supple. HEART: Normal S1 and S2. LUNGS: Decreased breath sounds. ABDOMEN: Soft, nontender. SKIN: There are few rashes that are present in *------* intermittently of minimal significance. LABORATORY EXAMINATION: White count of 15,400, hemoglobin of 12 and platelets of 198. Differential is noted, coagulation is noted and chemistry are reviewed. Urinalysis is unremarkable. The patient had a CAT scan of the head this morning, which is reported to be diffuse atrophy and right mastoiditis, and the patient had a chest x-ray, which is negative. CAT scan of the sinuses, results are not available. ASSESSMENT AND PLAN: A 56-year-old female with human immunodeficiency virus and acquired immune deficiency syndrome and chronic obstructive lung disease, hypertension, left eye blindness, hypothyroidism, pulmonary nodules and now presenting with generalized aches and pain with, 1. Right mastoiditis with leukocytosis, must rule out other sinusitis, must rule out crypt although there is no fevers, but we will order a cryptococcal antigen, HIV, PCR, and genotype with T-cells studies and RPR and FTA, and pancultures. We will order a CAT scan of the chest. We will start patient empirically on Zosyn and doxycycline, and pending initial cultures and imaging results, we will make further recommendations and follow closely with you. Jose Luis Duarte MD
[2017-03-30] MEDS: Levothyroxine 200 MCG TAB PO SCH (05:35)
[2017-03-30] MEDS: Piperacillin/Tazobact 3.375 gm 100 ML IVPB SCH ×3 (05:36→14:38)
[2017-03-30 07:17] LABS: MEAN CELL VOLUME 93.3 fL (80.0-105.0); MEAN CORPUSCULAR HEMOGLOBIN 29.6 pg (25.0-35.0); MEAN CORPUSCULAR HGB CONC 31.7 g/dl (31.0-37.0); MEAN PLATELET VOLUME 11.1 fl (7.0-11.0); RBC 4.06 10^6/uL (3.5-6.1); RED CELL DISTRIBUTION WIDTH 14.8 % (11.5-14.5); WHITE BLOOD COUNT 8.7 10^3/ul (4.5-11.0)
[2017-03-30 07:23] LABS: BLOOD UREA NITROGEN 13 mg/dL (7-21); CALCIUM 8.9 mg/dL (8.4-10.5); GFR AFRICAN-AMERICAN > 60; GFR NON-AFRICAN AMERICAN > 60
--- NOTE | 2017-03-30 08:33 | CT ---
PROCEDURE: CT Chest without contrast HISTORY: r/o infiltrate COMPARISON: 09/10/2014 TECHNIQUE: Contiguous axial images were obtained through the chest without intravenous contrast enhancement. Sagittal and coronal reconstructions were performed. Radiation dose (DLP): 397 mGy-cm. This CT exam was performed using one or more of the following dose reduction techniques: Automated exposure control, adjustment of the mA and/or kV according to patient size, and/or use of iterative reconstruction technique. FINDINGS: LUNGS: The bilateral previously referenced mostly peripheral pulmonary nodules which are nonspecific are similar with the following exception: The right fissural/perifissural prior rounded nodule 1.5 cm is now smaller and more triangular in shape- more hauling contractor in appearance measuring maximally 1 point 0 cm (current axial series 4, image 66 versus prior axis series 4, image 61. The largest prior peripheral pulmonary nodular which is stable appearing is similar or 1 mm smaller at 6 point did 2 mm thin lingular on current series 4, image 61 versus prior 7.8 mm on prior series 4, image 56. No interval pulmonary nodules. No interval consolidation. Right apical bleb -unchanged. No pneumothorax MEDIASTINUM: The ascending aorta is mildly dilated/aneurysmal at 4.0 cm thoracic aorta. . No interval change appreciated Possible mild cardiomegaly. No pericardial effusion. Left anterior descending coronary artery calcifications -unchanged Main pulmonary artery probably top-normal. No vascular congestion. No lymphadenopathy. Hyperdensity similar-appearing possible chronic calcified left pulmonary venous (versus arterial) thrombus. PLEURA: No pleural fluid. No pneumothorax. BONES: No fracture. No destructive lesion. UPPER ABDOMEN: Grossly unremarkable. OTHER FINDINGS: None. IMPRESSION: No interval infiltrate. Bilateral mostly peripheral pulmonary nodules most of which are similar in size and or smaller as detailed above. Mild at ascending aortic aneurysm -unchanged. Left anterior descending coronary artery calcifications -unchanged . Possible chronic calcified left pulmonary venous (versus arterial) thrombus.
[2017-03-30 09:50] VITALS: TEMP 97.9
[2017-03-30 11:56] VITALS: BP 145/97; PULSE 61
[2017-03-30] MEDS: ETHANOL TP SCH (14:34)
[2017-03-30] MEDS: ERYTHROMYCIN BASE TP SCH (14:34)
[2017-03-30] MEDS: Permethrin 5% Cream(60 gm) TOP SCH (14:36)
[2017-03-30] MEDS: [UNRECOGNIZED DRUG - OTHER] PO SCH (14:37)
[2017-03-30] MEDS: Multivitamin Therapeutic Tab PO SCH (14:37)
[2017-03-30] MEDS: Emtricitabine-Tenofovir 200 mg-300 mg Tab PO SCH (14:37)
--- NOTE | 2017-03-31 04:22 | PN ---
DATE: 03/30/2017 SUBJECTIVE: The patient seen early this morning in room 564. PHYSICAL EXAMINATION: VITAL SIGNS: Temperature is 97, blood pressure is 150/70, respiratory rate 16. HEENT: Unremarkable. NECK: Supple. LUNGS: Decreased breath sounds. HEART: Normal S1 and S2. ABDOMEN: Soft. LABORATORY DATA: White count of 8.7, hemoglobin 12. BUN of 13 and creatinine is 0.8. Cryptococcal antigen is not detected. RPR is negative and FTAs are reactive minimal. Blood cultures are negative. ASSESSMENT AND PLAN: This is 56-year-old female with positive human immunodeficiency virus, chronic obstructive lung disease, hypertension, left eye blindness, hypothyroidism, pulmonary nodule with right mastoiditis and leukocytosis which is improving. The patient is to follow up with her PMD and human immunodeficiency virus doctor as an outpatient. Jose Luis Duarte MD cc:
[2017-03-31 17:54] LABS: % CD4 (T HELPER CELL) 31 Percent (30-61); % CD8 (SUPPRESSOR T CELL) 36 Percent (12-42); ABSOLUTE CD19 CELLS 974 Cells/mcL (110-660); ABSOLUTE CD3 CELLS 2603 Cells/mcL (840-3060); ABSOLUTE CD4 CELLS 1254 Cells/mcL (490-1740); ABSOLUTE CD8 CELLS 1431 Cells/mcL (180-1170); ABSOLUTE LYMPHOCYTES 3704 Cells/mcL (850-3900); HELPER/SUPPRESSOR RATIO 0.88 Ratio (0.86-5.00)
--- NOTE | 2017-03-31 22:56 | CP.PCM.DIS ---
Provider - Provider Date of Admission: 03/29/17 10:52 Attending physician: Hawa Sanches MD Primary care physician: NO PRIMARY CARE PROVIDER Consults: Consultants: ID Time Spent in preparation of Discharge (in minutes): 45 Hospital Course - Lab Results Lab Results: Most Recent Lab Values WBC 8.7 10^3/ul (4.5-11.0) D 03/30/17 06:45 RBC 4.06 10^6/uL (3.5-6.1) 03/30/17 06:45 Hgb 12.0 gm/dL (12.0-16.0) 03/30/17 06:45 Hct 37.9 % (36.0-48.0) 03/30/17 06:45 MCV 93.3 fL (80.0-105.0) 03/30/17 06:45 MCH 29.6 pg (25.0-35.0) 03/30/17 06:45 MCHC 31.7 g/dl (31.0-37.0) 03/30/17 06:45 RDW 14.8 % (11.5-14.5) H 03/30/17 06:45 Plt Count 153 10^3/uL (120.0-450.0) 03/30/17 06:45 MPV 11.1 fl (7.0-11.0) H 03/30/17 06:45 Gran % 78.5 % (50.0-68.0) H 03/28/17 11:00 Lymph % (Auto) 18.0 % (22.0-35.0) L 03/28/17 11:00 [place] % (Auto) 3.4 % (1.0-6.0) 03/28/17 11:00 Eos % (Auto) 0.0 % (1.5-5.0) L 03/28/17 11:00 Baso % (Auto) 0.1 % (0.0-3.0) 03/28/17 11:00 Gran # 12.11 (1.4-6.5) H 03/28/17 11:00 Lymph # 2.8 (1.2-3.4) 03/28/17 11:00 [place] # 0.5 (0.1-0.6) 03/28/17 11:00 Eos # 0.0 (0.0-0.7) 03/28/17 11:00 Baso # 0.01 K/mm3 (0.0-2.0) 03/28/17 11:00 PT 10.6 Seconds (9.9-11.8) 03/28/17 11:00 INR 0.98 (0.93-1.08) 03/28/17 11:00 APTT 25.5 Seconds (23.7-30.8) 03/28/17 11:00 Sodium 143 mmol/L (132-148) 03/30/17 06:45 Potassium 3.6 mmol/L (3.6-5.0) 03/30/17 06:45 Chloride 106 mmol/L (95-110) 03/30/17 06:45 Carbon Dioxide 28 mmol/L (21-33) 03/30/17 06:45 Anion Gap 13 (10-20) 03/30/17 06:45 BUN 13 mg/dL (7-21) 03/30/17 06:45 Creatinine 0.8 mg/dL (0.5-1.4) 03/30/17 06:45 Est GFR ( Amer) > 60 03/30/17 06:45 Est GFR (Non-Af Amer) > 60 03/30/17 06:45 Random Glucose 83 mg/dL (70-110) 03/30/17 06:45 Hemoglobin A1c 6.1 % (4.2-6.5) 03/29/17 08:00 Calcium 8.9 mg/dL (8.4-10.5) 03/30/17 06:45 Phosphorus 2.5 mg/dL (2.5-4.5) 03/29/17 07:00 Magnesium 1.8 mg/dL (1.7-2.2) 03/29/17 07:00 Total Bilirubin 0.4 mg/dL (0.2-1.3) 03/28/17 11:00 AST 16 U/L (15-39) 03/28/17 11:00 ALT 25 U/L (7-56) 03/28/17 11:00 Alkaline Phosphatase 89 U/L (38-133) 03/28/17 11:00 Lactate Dehydrogenase 462 U/L (333-699) 03/28/17 11:00 Total Creatine Kinase 70 U/L (35-230) 03/28/17 11:00 Troponin I < 0.01 ng/mL 03/29/17 07:00 Total Protein 7.8 g/dL (5.8-8.3) 03/28/17 11:00 Albumin 4.3 g/dL (3.0-4.8) 03/28/17 11:00 Globulin 3.5 gm/dL 03/28/17 11:00 Albumin/Globulin Ratio 1.2 (1.1-1.8) 03/28/17 11:00 Triglycerides 223 mg/dL (35-160) H 03/29/17 07:00 Cholesterol 201 mg/dL (130-200) H 03/29/17 07:00 LDL Cholesterol Direct 97 mg/dL (0-129) 03/29/17 07:00 HDL Cholesterol 44 mg/dL (29-60) 03/29/17 07:00 Lipase 79 U/L (23-300) 03/28/17 11:00 Free T4 0.53 ng/dL (0.78-2.19) L 03/29/17 08:00 Thyroxine (T4) 4.4 ug/dL (5.5-11.0) L 03/29/17 08:00 TSH 3rd Generation 59.90 mIU/mL (0.46-4.68) H 03/29/17 08:00 Urine Color Yellow (YELLOW) 03/28/17 11:00 Urine Appearance Clear (CLEAR) 03/28/17 11:00 Urine pH 6.0 (4.7-8.0) 03/28/17 11:00 Ur Specific [place] 1.020 (1.005-1.035) 03/28/17 11:00 Urine Protein Trace mg/dL (<30 mg/dL) H 03/28/17 11:00 Urine Glucose (UA) Negative mg/dL (NEGATIVE) 03/28/17 11:00 Urine Ketones Negative mg/dL (NEGATIVE) 03/28/17 11:00 Urine Blood Negative (NEGATIVE) 03/28/17 11:00 Urine Nitrate Negative (NEGATIVE) 03/28/17 11:00 Urine Bilirubin Negative (NEGATIVE) 03/28/17 11:00 Urine Urobilinogen 0.2 E.U./dL (<1 E.U./dL) 03/28/17 11:00 Ur Leukocyte Esterase Negative Aravind/uL (NEGATIVE) 03/28/17 11:00 Urine RBC Negative /hpf (0-2) 03/28/17 11:00 Urine WBC 0 - 2 /hpf (0-6) 03/28/17 11:00 Ur Epithelial Cells 0 - 2 /hpf (0-5) 03/28/17 11:00 Urine Bacteria Trace (NEG) 03/28/17 11:00 Urine HCG, Qual Negative (NEGATIVE) 03/28/17 11:30 Urine Opiates Screen Negative (NEGATIVE) 03/29/17 19:00 Urine Methadone Screen Negative (NEGATIVE) 03/29/17 19:00 Ur Barbiturates Screen Negative (NEGATIVE) 03/29/17 19:00 Ur Phencyclidine Scrn Negative (NEGATIVE) 03/29/17 19:00 Ur Amphetamines Screen Negative (NEGATIVE) 03/29/17 19:00 U Benzodiazepines Scrn Negative (NEGATIVE) 03/29/17 19:00 U Oth Cocaine Metabols Negative (NEGATIVE) 03/29/17 19:00 U Cannabinoids Screen Negative (NEGATIVE) 03/29/17 19:00 Absolute Lymphs (Flow) 3704 Cells/mcL (850-3900) 03/30/17 06:45 % CD3 Cells 68 Percent (57-85) 03/30/17 06:45 Absolute CD3 Count 2603 Cells/mcL (840-3060) 03/30/17 06:45 % CD3-/CD16+/CD56+ 5 Percent (4-25) 03/30/17 06:45 % CD4 Cells 31 Percent (30-61) 03/30/17 06:45 Absolute CD4 Count 1254 Cells/mcL (490-1740) 03/30/17 06:45 T-Help/Suppress Ratio 0.88 Ratio (0.86-5.00) 03/30/17 06:45 % CD8 Cells 36 Percent (12-42) 03/30/17 06:45 Absolute CD8 Count 1431 Cells/mcL (180-1170) H 03/30/17 06:45 Absolute CD16/CD56 Count 193 Cells/mcL (70-760) 03/30/17 06:45 % CD19 Cells 26 Percent (6-29) 03/30/17 06:45 Absolute CD19 Count 974 Cells/mcL (110-660) H 03/30/17 06:45 RPR Nonreactive (NONREACTIVE) 03/29/17 13:13 T.pallidum Ab (FTA-ABS) Reactive minimal (Nonreactive) H 03/29/17 13:20 Cryptococcus Ag Screen Not detected (Not Detected) 03/29/17 08:00 - Hospital Course Hospital Course: Admitting Physician: Dr. Shook Date of Admission: 03/28/2017 Discharge Physician: Dr. Gabriel Date of Discharge: 03/30/2017 Discharge Diagnoses: 1. Generalized Body Aches/Weakness - resolved 2. Otitis Media 3. Atypical Chest Pain resolved 4. Leg Pain 5. Scabies 6. HIV 7. HTN 8. Hypothyroidism 9. COPD 10. H/o recurrent hypokalemia 11. Tobacco abuse 12. Hyperlipidemia 13. Normocytic anemia Hospital Course: 56 y/o woman with a past medical history admitted to the hospitalist service following presentation to ED for chest pain and generalized weakness. Cardiac enzymes were trended and remained wnl, she had no events on telemetry. Chest pain resolved during course of admission. Her initial labs revealed K of 2.9 which was replaced to 3.7 on day of discharge. She was evaluated by ID for her mastoiditis and history of HIV. She underwent CT imaging of head and sinuses which revealed R mastoiditis, no acute brain abnormalities. She had complaints of itching and was found to have scabies. She was started on treatment including permethrin cream and topical erythromycin with resolution of symptoms. Procedures/Imaging: CT chest wo 03/29 No interval infiltrate. Bilateral mostly peripheral pulmonary nodules most of which are similar in size and or smaller. Mild at ascending aortic aneurysm unchanged. L anterior descending coronary artery calcifications unchanged. Possible chronic calcified L pulmonary venous ( versus arterial) thrombus. CT head wo 03/[address], interval R mastoiditis. CT sinuses 03/29 R mastoid polyp or cyst Consultants: ID Discharge Medications: Ritonavir 100mg capsule bid Norvasc 10mg po daily Truvada 200/300mg 1 tab daily Lotensin 10 mg daily KCl 20 mEq po daily Levothyroxine 200mcg po daily Tipranavir 250mg po bid MVI daily atorvastatin 20mg po daily Emtricitabine/Tenofovir 200/25mg 1 po daily Erythromycin 2% gel 30gm TP daily Augmentin 875/125mg 1 tab po bid #14 Doxycycline 100mg po bid #14 Condition at discharge: Stable and improved Disposition: Discharge to home Follow up: PCP within 1 week Diet: Regular Activity: As tolerated Discharge Exam - Head Exam Head Exam: ATRAUMATIC, NORMOCEPHALIC - Eye Exam Eye Exam: EOMI, Normal appearance, PERRL Pupil Exam: NORMAL ACCOMODATION - ENT Exam ENT Exam: Mucous Membranes Moist, Normal Exam - Neck Exam Neck exam: Full Rom - Respiratory Exam Respiratory Exam: NORMAL BREATHING PATTERN, UNREMARKABLE - Cardiovascular Exam Cardiovascular Exam: REGULAR RHYTHM - GI/Abdominal Exam GI & Abdominal Exam: Normal Bowel Sounds, Unremarkable - Rectal Exam Rectal Exam: Deferred - Back Exam Back exam: NORMAL INSPECTION. absent: CVA tenderness (L) - Neurological Exam Neurological exam: CN II-XII Intact, Oriented x3 - Psychiatric Exam Psychiatric exam: Normal Affect, Normal Mood - Skin Skin Exam: Intact, Rash, Urticaria Discharge Plan - Discharge Medications Prescriptions: Amoxicillin/Clavulanate [Augmentin 875 MG-125 MG] 1 tab PO BID #14 tab Doxycycline Hyclate [Doryx] 100 mg PO BID #14 cap - Follow Up Plan Condition: STABLE Disposition: HOME/ ROUTINE Patient education suggested?: Yes Instructions: Scabies (DC), Weakness (ED) Additional Instructions: 1. Follow up with your PMD within 1 week of discharge. 2. Follow up with your Infectious Disease doctor within 1 week of discharge. 3. Follow up with your ENT within 1 week of discharge. 4. Fill any medications prescribed to you and continue to take your home medications as directed. 5. Follow up with a propeller driven airplane mechanic within 1 week of discharge. 6. Return to the emergency room should your condition worsen. Referrals: PCP,NO [Primary Care Provider] -
== END 2017-03-30 15:42 | disposition home or self-care (01) | DRG 543 ==
LOC: ED 09:42 → ERH 17:38 → 5RNO 21:54 → OBSVTOIN 03-29 10:52
PROVIDERS: ADMIT Internal Medicine; ATTEND Internal Medicine
DX: R07.89 Other chest pain (principal); B20 Human immunodeficiency virus [HIV] disease; F03.90 Unspecified dementia, unspecified severity, without behavioral disturbance, psychotic disturbance, mood disturbance, and anxiety; J44.9 Chronic obstructive pulmonary disease, unspecified; E87.6 Hypokalemia; B86 Scabies; I10 Essential (primary) hypertension; D64.9 Anemia, unspecified; F17.210 Nicotine dependence, cigarettes, uncomplicated; E03.9 Hypothyroidism, unspecified; H66.90 Otitis media, unspecified, unspecified ear; R53.1 Weakness; E78.5 Hyperlipidemia, unspecified; H54.42 Blindness, left eye, normal vision right eye; D72.829 Elevated white blood cell count, unspecified; T38.0X5A Adverse effect of glucocorticoids and synthetic analogues, initial encounter; Z91.14 Patient's other noncompliance with medication regimen; M79.606 Pain in leg, unspecified; H70.91 Unspecified mastoiditis, right ear; I71.4 Abdominal aortic aneurysm, without rupture; R91.1 Solitary pulmonary nodule

== ENCOUNTER 2017-07-04 12:43 | Emergency (ER) | payer OTHER ==
[2017-07-04 13:03] VITALS: TEMP 97.8; O2SAT 98; BMI 26.6
--- NOTE | 2017-07-04 13:37 | ED PDOC ---
Arrival/HPI - General Chief Complaint: Cough, Cold, Congestion Time Seen by Provider: 07/04/17 13:09 Historian: Patient - History of Present Illness Narrative History of Present Illness (Text): 07/04/17 13:38 A 56 year old female, whose past medical history includes hypertension, hyperlipidemia and HIV, presents to the emergency department complaining of a cough for about 6 days. Patient was prescribed azithromycin antibiotic medication and an asthma pump about a week ago and reports no relief. Patient reports productive cough with phelgm, chills, diaphoresis and headache. Denies any fever, vomiting, diarrhea, sore throat , runny nose or any other complaints at this time. Patient is a smoker but denies any other drug use. Denies any history of lung disease. PMD: Dr. Raquel Celaya Time/Duration: 1 week Symptom Onset: Sudden Symptom Course: Unchanged Activities at Onset: Rest Context: Home Past Medical History - Provider Review Nursing Documentation Reviewed: Yes - Infectious Disease Hx of Infectious Diseases: None - Tetanus Immunization Tetanus Immunization: Unknown - Cardiac Hx Cardiac Disorders: Yes Hx Congestive Heart Failure: No Hx Hypertension: Yes - Pulmonary Hx Chronic Obstructive Pulmonary Disease (COPD): Yes - Neurological Hx Neurological Disorder: No - HEENT Other/Comment: pt had left eye cataract was incarcerated, eye was not treated during incarceration as per pt and vision became worse, 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 Uterine biopsy - Anesthesia Hx Anesthesia: Yes Hx Anesthesia Reactions: No Hx Malignant Hyperthermia: No - Suicidal Assessment Feels Threatened In Home Enviroment: No Family/Social History - Physician Review Nursing Documentation Reviewed: Yes Family/Social History: Other (non-contributory) Smoking Status: Heavy Smoker > 10 Cigarettes Daily Hx Alcohol Use: No Hx Substance Use: Yes (cocaine heroin) Substance used: cocaine/heroine Hx Substance Use Treatment: No Allergies/Home Meds Allergies/Adverse Reactions: Allergies No Known Allergies Allergy (Verified 03/01/17 14:09) Home Medications: Home Meds Medication Instructions Recorded Confirmed Amlodipine Besylate [Norvasc] 10 mg PO DAILY 04/13/16 07/04/17 Benazepril HCl [Lotensin] 10 mg PO DAILY 04/13/16 07/04/17 Levothyroxine [Synthroid] 200 mcg PO DAILY 04/13/16 07/04/17 Atorvastatin [Lipitor] 20 mg PO DAILY 03/28/17 07/04/17 Azithromycin [Zithromax] 250 mg PO DAILY 07/04/17 07/04/17 Elviteg/Cob/Emtri/Tenof Alafen 1 tab PO DAILY 07/04/17 07/04/17 [Genvoya Tablet] Review of Systems - Physician Review All systems were reviewed & negative as marked: Yes - Review of Systems Constitutional: Other (chills). absent: Fevers ENT: absent: Sore Throat, Rhinorrhea Respiratory: Cough (productive) Gastrointestinal: absent: Vomiting Neurological: Headache Endocrine: Diaphoresis Physical Exam Vital Signs Reviewed: Yes Vital Signs Temp Pulse Resp BP Pulse Ox 07/04/17 13:02 97.8 F 79 16 116/85 98 Appearance: Positive for: Well-Appearing, Non-Toxic, Comfortable Pain Distress: None Mental Status: Positive for: Alert and Oriented X 3 - Systems Exam Head: Present: Atraumatic, Normocephalic Extroacular Muscles: Present: EOMI Conjunctiva: Present: Other (abnormal left eye) Neck: Present: Normal Range of Motion Respiratory/Chest: Present: Clear to Auscultation, Good Air Exchange. No: Respiratory Distress, Accessory Muscle Use Cardiovascular: Present: Regular Rate and Rhythm, Normal S1, S2. No: Murmurs Abdomen: Present: Normal Bowel Sounds. No: Tenderness, Distention, Peritoneal Signs Back: Present: Normal Inspection Upper Extremity: Present: Normal Inspection. No: Cyanosis, Edema Lower Extremity: Present: Normal Inspection. No: Edema Neurological: Present: GCS=15, CN II-XII Intact, Speech Normal Skin: Present: Warm, Dry, Normal Color. No: Rashes Psychiatric: Present: Alert, Oriented x 3, Normal Insight, Normal Concentration Medical Decision Making ED Course and Treatment: 07/04/17 14:44 Chest xray: Creator: Chris Werner MD Impression: No active pulmonary disease. 07/04/17 15:03 pt appears well, no distress, lungs clear, cxr clear, last CD4 count good, pt compliants w meds. disc plan for rx, close follow up, and rtr - RAD Interpretation Radiology Orders: 07/04/17 13:21 CHEST TWO VIEWS (PA/LAT) [RAD] Stat - Scribe Statement The provider has reviewed the documentation as recorded by the Perezibe Patricia Braxton Provider Scribe Attestation: All medical record entries made by the Scribe were at my direction and personally dictated by me. I have reviewed the chart and agree that the record accurately reflects my personal performance of the history, physical exam, medical decision making, and the department course for this patient. I have also personally directed, reviewed, and agree with the discharge instructions and disposition. Disposition/Present on Arrival - Present on Arrival Any Indicators Present on Arrival: No History of DVT/PE: No History of Uncontrolled Diabetes: No Urinary Catheter: No History of Decub. Ulcer: No History Surgical Site Infection Following: None - Disposition Have Diagnosis and Disposition been Completed?: Yes Diagnosis: Cough Disposition: HOME/ ROUTINE Disposition Time: 15:03 Patient Problems: Current Active Problems Problem Status Onset Cough Acute Condition: STABLE Additional Instructions: Please follow up with your doctor later this week for a re-check. Return to the ER for any worsening symptoms, fever, or for any other concerns. Prescriptions: Levofloxacin [Levaquin] 750 mg PO DAILY #5 tablet Referrals: Raquel Celaya MD [Primary Care Provider] - Follow up with primary Forms: Vuze (Uzbek)
--- NOTE | 2017-07-04 14:41 | RAD ---
HISTORY: COMPARISON: 03/28/2017. TECHNIQUE: Chest PA and lateral FINDINGS: LINES AND TUBES: None. LUNG AND PLEURA: The lungs are well inflated and clear. HEART AND MEDIASTINUM: The heart is not enlarged. The hilar and mediastinal contours are within normal limits. SKELETAL STRUCTURES: The bony structures are within normal limits for the patient's age. VISUALIZED UPPER ABDOMEN: Normal. OTHER FINDINGS: None. IMPRESSION: No active pulmonary disease.
[2017-07-04 15:10] VITALS: BP 118/74; PULSE 75; RESP 18
== END 2017-07-04 15:10 | disposition home or self-care (01) ==
LOC: ED 12:43
DX: R05 Cough (principal); I10 Essential (primary) hypertension; E78.5 Hyperlipidemia, unspecified

== ENCOUNTER 2017-11-14 11:50 | Emergency (ER) | payer OTHER ==
[2017-11-14 11:51] VITALS: BMI 26.6
[2017-11-14 12:06] VITALS: TEMP 97.8
[2017-11-14 12:55] VITALS: RESP 18; O2SAT 97
--- NOTE | 2017-11-14 13:07 | ED PDOC ---
Arrival/HPI - General Chief Complaint: Shortness Of Breath Time Seen by Provider: 11/14/17 12:16 Historian: Patient - History of Present Illness Narrative History of Present Illness (Text): 11/14/17 13:09 Pt is a 56 yo F with PMH of HIV, Left eye blindness, hypothyroidism, COPD, HTN, possible AAA, anemia, HLD presents to ED with c/o dyspnea and constipation. Pt states that constipation has been on going for the past couple of weeks and felt very distended. Pt states that she has been using "a lot" of mag citrate, which appropriately caused diarrhea. However, she states that she feels as if there is something there that she cannot push out. She brought a sample of what she believes is obstructing her and is white/fatty in appearance. Pt states that dyspnea has been ongoing for the past 2 weeks and is insidious in onset. Pt is short of breath even at rest. Of note, patient states she last saw her infectious disease doctor 2 months ago and was told that her CD4 and viral load was "good" at that time. Patient admits to tobacco use and heroin use. Pt denies CP, n/v/d, fever, chills, PERSAUD, and dizziness. Past Medical History - Provider Review Nursing Documentation Reviewed: Yes - Infectious Disease Hx of Infectious Diseases: None - Tetanus Immunization Tetanus Immunization: Unknown - Reproductive Menopause: Yes - Cardiac Hx Cardiac Disorders: Yes Hx Hypertension: Yes - Pulmonary Hx Respiratory Disorders: Yes Hx Chronic Obstructive Pulmonary Disease (COPD): Yes - Neurological Hx Neurological Disorder: No - HEENT Hx HEENT Disorder: Yes Hx Cataracts: Yes Other/Comment: BLIND L EYE - Renal Hx Renal Disorder: No - Endocrine/Metabolic Hx Endocrine Disorders: Yes Hx Hypothyroidism: Yes - Hematological/Oncological Hx Blood Disorders: Yes Hx Anemia: Yes - Integumentary Hx Dermatological Disorder: No - Musculoskeletal/Rheumatological Hx Musculoskeletal Disorders: Yes Hx Herniated Disk: Yes (lower back) Hx Unsteady Gait: Yes - Gastrointestinal Hx Gastrointestinal Disorders: Yes Hx Constipation: Yes Hx Gastroesophageal Reflux: Yes - Genitourinary/Gynecological Hx Genitourinary Disorders: No - Psychiatric Hx Substance Use: Yes (HEROIN USE LAST NIGHT) Other/Comment: cocaine and heroin use, smoker - Surgical History Hx Orthopedic Surgery: Yes Other/Comment: Uterine biopsy - Anesthesia Hx Anesthesia: Yes Hx Anesthesia Reactions: No Hx Malignant Hyperthermia: No - Suicidal Assessment Feels Threatened In Home Enviroment: No Family/Social History - Physician Review Nursing Documentation Reviewed: Yes Family/Social History: Other (Non-contributory) Smoking Status: Heavy Smoker > 10 Cigarettes Daily Hx Alcohol Use: No Hx Substance Use: Yes (HEROIN USE LAST NIGHT) Substance used: cocaine/heroine Hx Substance Use Treatment: No Allergies/Home Meds Allergies/Adverse Reactions: Allergies No Known Allergies Allergy (Verified 11/14/17 11:56) Home Medications: Home Meds Medication Instructions Recorded Confirmed Amlodipine Besylate [Norvasc] 10 mg PO DAILY 04/13/16 11/14/17 Benazepril HCl [Lotensin] 10 mg PO DAILY 04/13/16 11/14/17 Levothyroxine [Synthroid] 200 mcg PO DAILY 04/13/16 11/14/17 Atorvastatin [Lipitor] 20 mg PO DAILY 03/28/17 11/14/17 Elviteg/Cob/Emtri/Tenof Alafen 1 tab PO DAILY 07/04/17 11/14/17 [Genvoya Tablet] Review of Systems - Review of Systems Constitutional: Normal. absent: Weight Change, Fevers Eyes: Normal ENT: Normal Respiratory: SOB. absent: Cough, Sputum Cardiovascular: Normal Gastrointestinal: Abdominal Pain, Constipation, Diarrhea. absent: Nausea, Vomiting Genitourinary Female: Normal Musculoskeletal: Normal Skin: Normal Neurological: Normal Endocrine: Normal Hemo/Lymphatic: Normal Psychiatric: Normal Physical Exam Vital Signs Reviewed: Yes Vital Signs Temp Pulse Resp BP Pulse Ox 11/14/17 17:10 67 18 118/64 97 11/14/17 16:15 64 18 122/61 97 11/14/17 14:30 18 98 11/14/17 14:07 66 18 124/68 97 11/14/17 12:55 65 18 126/71 97 11/14/17 11:58 97.8 F 67 16 128/84 95 Temperature: Afebrile Blood Pressure: Normal Pulse: Regular Respiratory Rate: Normal Appearance: Positive for: Well-Appearing Pain Distress: Mild Mental Status: Positive for: Alert and Oriented X 3 - Systems Exam Head: Present: Atraumatic, Normocephalic Pupils: Present: PERRL Extroacular Muscles: Present: EOMI Mouth: Present: Moist Mucous Membranes Pharnyx: Present: Normal Neck: Present: Normal Range of Motion Respiratory/Chest: Present: Clear to Auscultation. No: Wheezes, Rales, Rhonchi Cardiovascular: Present: Regular Rate and Rhythm, Normal S1, S2. No: Murmurs, Rub, Gallop Abdomen: Present: Distention. No: Tenderness, Peritoneal Signs, Rebound, Guarding Back: Present: Normal Inspection Upper Extremity: Present: Normal Inspection Lower Extremity: Present: Normal Inspection Neurological: Present: GCS=15 Skin: Present: Warm, Dry, Normal Color Psychiatric: Present: Alert, Oriented x 3 Medical Decision Making ED Course and Treatment: 11/14/17 13:20 Assessment: 56 yo F presents to ED with dypsnea and constipation. Plan: - CBC - CMP - Cardiac iso - UA - UDS - CXR - CTA chest - CT abdomen/pelvis with PO contrast - Stool culture, leukocyte, electrolytes - Reassess and disposition EKG showed sinus bradycardia. 11/14/17 13:30 Potassium 3.1. Likely 2/2 to diarrhea due to Mag citrate. KCl 40 mEq PO ordered. 11/14/17 14:35 CXR as read by radiologist shows no active disease. 11/14/17 16:19 CT abdomen/pelvis with PO contrast as read by radiologist showed no acute intra- abdominal findings. 4 cm abdominal aortic aneurysm found (3.5 cm in 2015). 11/14/17 16:48 CTA chest as read by radiologist shows no evidence of pulmonary embolism. 11/14/17 17:12 Discussed all results with patient. Explained to patient that no acute process was found. Advised patient to follow up with general surgeon as an outpatient for further evaluation. Advised patient to use Mag citrate conservatively as dehydration and electrolyte abnormalities could adversely occur. Recommneded miralax instead. Recommended that patient not strain when having BM as the sensation that she cannot fully empty may be anatomic and excessive straining could cause/worsen hemorrhoids or anal fissures. - Lab Interpretations Lab Results: 11/14/17 13:00 11/14/17 13:00 Lab Results 11/14/17 13:00: Urine Opiates Screen Positive H, Urine Methadone Screen Negative , Ur Barbiturates Screen Negative, Ur Phencyclidine Scrn Negative, Ur Amphetamines Screen Negative, U Benzodiazepines Scrn Negative, U Oth Cocaine Metabols Negative, U Cannabinoids Screen Negative 11/14/17 13:00: Urine Color Yellow, Urine Appearance Clear, Urine pH 6.5, Ur Specific [place] 1.015, Urine Protein 30 H, Urine Glucose (UA) Negative, Urine Ketones Trace H, Urine Blood Negative, Urine Nitrate Negative, Urine Bilirubin Negative, Urine Urobilinogen 0.2, Ur Leukocyte Esterase Negative, Urine RBC 0 - 2, Urine WBC 1 - 3, Ur Epithelial Cells 4 - 5, Amorphous Sediment Few, Urine Bacteria Many, Hyaline Casts 0 - 2 11/14/17 13:00: Sodium 145, Potassium 3.1 L, Chloride 106, Carbon Dioxide 30, Anion Gap 11, BUN 12, Creatinine 1.2, Est GFR ( Amer) 57, Est GFR (Non- Af Amer) 47, Random Glucose 114 H, Calcium 9.9, Magnesium 2.2, Total Bilirubin 0.3, AST 24, ALT 41, Alkaline Phosphatase 112, Lactate Dehydrogenase 457, Total Creatine Kinase 69, Troponin I < 0.01, Total Protein 6.9, Albumin 3.8, Globulin 3.1, Albumin/Globulin Ratio 1.2 11/14/17 13:00: WBC 9.5, RBC 4.67, Hgb 13.4, Hct 41.4, MCV 88.7, MCH 28.7, MCHC 32.4, RDW 15.3 H, Plt Count 203, MPV 10.5, Gran % 55.8, Lymph % (Auto) 37.1 H, [place] % (Auto) 4.9, Eos % (Auto) 1.8, Baso % (Auto) 0.4, Gran # 5.30, Lymph # ( Auto) 3.5 H, [place] # (Auto) 0.5, Eos # (Auto) 0.2, Baso # (Auto) 0.04 - RAD Interpretation Radiology Orders: 11/14/17 12:51 CHEST PORTABLE [RAD] Stat 11/14/17 13:01 ABD & PELVIS PO CONTRAST ONLY [CT] Stat ANGIO CHEST PE PROTOCOL [CT] Stat - Medication Orders Current Medication Orders: Discontinued Medications Sodium Chloride (Sodium Chloride 0.9%) 500 mls @ 999 mls/hr IV .Q31M STA Stop: 11/14/17 14:54 Ketorolac Tromethamine (Toradol) 15 mg IVP STAT STA Stop: 11/14/17 14:24 Potassium Chloride (K-Dur 20 Meq Er Tab) 40 meq PO STAT STA Stop: 11/14/17 13:30 Last Admin: 11/14/17 14:20 Dose: 40 meq Disposition/Present on Arrival - Present on Arrival Any Indicators Present on Arrival: No History of DVT/PE: No History of Uncontrolled Diabetes: No Urinary Catheter: No History of Decub. Ulcer: No History Surgical Site Infection Following: None - Disposition Have Diagnosis and Disposition been Completed?: Yes Diagnosis: Rectal discomfort, Aneurysm of aorta, Pulmonary nodule Disposition: HOME/ ROUTINE Disposition Time: 17:16 Patient Plan: Discharge Patient Problems: Current Active Problems Problem Status Onset Aneurysm of aorta Acute Pulmonary nodule Acute Rectal discomfort Acute Condition: STABLE Discharge Instructions (ExitCare): Aortic Aneurysm (DC) Additional Instructions: 1. Follow up with PMD within 1 week 2. Follow up with HIV physician within 1 week 3. Follow up with general surgeon within 1 week 4. Do not strain when having bowel movement 5. Recommend Miralax for constipation, use mag citrate conservatively 6. Resume all medications as prescribed 7. Maintain adequate hydration 8. Return to ED if symptoms worsen Prescriptions: Polyethylene Glycol 3350 [Miralax] 17 gm PO DAILY #5 ml Referrals: Nathan Sapp MD [Medical Doctor] - Follow up with primary Forms: [employer] (Mongolian)
[2017-11-14 13:10] LABS: BASO # 0.04 K/mm3 (0.0-2.0); BASO % 0.4 % (0.0-3.0); EOS # 0.2 (0.0-0.7); EOS % 1.8 % (1.5-5.0); GRAN # 5.3 (1.4-6.5); GRAN % 55.8 % (50.0-68.0); HEMOGLOBIN 13.4 g/dL (12.0-16.0); LYMPH # 3.5 (1.2-3.4); LYMPH % 37.1 % (22.0-35.0); MEAN CELL VOLUME 88.7 fl (80.0-105.0); MEAN CORPUSCULAR HEMOGLOBIN 28.7 pg (25.0-35.0); MEAN CORPUSCULAR HGB CONC 32.4 g/dl (31.0-37.0); MEAN PLATELET VOLUME 10.5 fl (7.0-11.0); MONO # 0.5 (0.1-0.6); MONO % 4.9 % (1.0-6.0); RBC 4.67 10^6/uL (3.5-6.1); RED CELL DISTRIBUTION WIDTH 15.3 % (11.5-14.5); WHITE BLOOD COUNT 9.5 10^3/ul (4.5-11.0)
[2017-11-14 13:12] LABS: PH,URINE 6.5 (4.7-8.0); URINE APPEARANCE CLEAR (CLEAR); URINE BILIRUBIN NEGATIVE (NEGATIVE); URINE BLOOD NEGATIVE (NEGATIVE); URINE COLOR YELLOW (YELLOW); URINE GLUCOSE (UA) NEGATIVE (NEGATIVE); URINE LEUKOCYTE ESTERASE NEGATIVE Leu/uL (NEGATIVE); URINE NITRATE NEGATIVE (NEGATIVE); URINE PROTEIN 30 mg/dL (<30 mg/dL); URINE UROBILINOGEN 0.2 E.U./dL (<1 E.U./dL)
[2017-11-14 13:15] LABS: URINE BACTERIA MANY (NEG); URINE HYALINE CAST 0 - 2 /hpf; URINE RBC 0 - 2 /hpf (0-2)
[2017-11-14 13:16] LABS: URINE AMORPHOUS SEDIMENT FEW
[2017-11-14 13:25] LABS: ALB/GLOB RATIO 1.2 (1.1-1.8); ALBUMIN 3.8 g/dL (3.0-4.8); ALT/SGPT 41 U/L (7-56); AST/SGOT 24 U/L (14-36); BLOOD UREA NITROGEN 12 mg/dL (7-21); CALCIUM 9.9 mg/dL (8.4-10.5); GFR AFRICAN-AMERICAN 57; GFR NON-AFRICAN AMERICAN 47; MAGNESIUM 2.2 mg/dL (1.7-2.2)
[2017-11-14] MEDS ORDERED: Potassium Chloride 20 mEq ER Tab PO STA (13:29)
[2017-11-14 13:35] LABS: BARBITURATES, UR NEGATIVE (NEGATIVE); BENZODIAZEPINES, UR NEGATIVE (NEGATIVE); OPIATES, UR POSITIVE (NEGATIVE); PHENCYCLIDINE, UR NEGATIVE (NEGATIVE)
[2017-11-14 13:43] LABS: TROPONIN I < 0.01 ng/mL
[2017-11-14] MEDS ORDERED: Sodium Chloride 0.9% 500 ML IV STA (14:24)
--- NOTE | 2017-11-14 14:28 | RAD ---
HISTORY: dyspnea COMPARISON: 07/04/2017 FINDINGS: LUNGS: No active pulmonary disease. PLEURA: No significant pleural effusion identified, no pneumothorax apparent. CARDIOVASCULAR: Normal. OSSEOUS STRUCTURES: No significant abnormalities. VISUALIZED UPPER ABDOMEN: Normal. OTHER FINDINGS: None. IMPRESSION: No active disease.
[2017-11-14] MEDS ORDERED: Iohexol 350 MG/100 ML VIAL ONE (15:37)
--- NOTE | 2017-11-14 16:11 | CT ---
PROCEDURE: CT Abdomen and Pelvis without intravenous contrast HISTORY: abdominal pain COMPARISON: CT chest 03/29/2017 TECHNIQUE: Without contrast.. Contrast Dose: Radiation dose: Total exam DLP = 676 mGy-cm. This CT exam was performed using one or more of the following dose reduction techniques: Automated exposure control, adjustment of the mA and/or kV according to patient size, and/or use of iterative reconstruction technique. FINDINGS: LOWER THORAX: There is a 6 x 11 mm nodule at the right lung base and a smaller nodule at the left lung base. These are stable in appearance LIVER: Unremarkable. No gross lesion or ductal dilatation. GALLBLADDER AND BILE DUCTS: Unremarkable. PANCREAS: Unremarkable. No gross lesion or ductal dilatation. SPLEEN: Unremarkable. ADRENALS: Unremarkable. No mass. KIDNEYS AND URETERS: Unremarkable. No hydronephrosis. No solid mass. VASCULATURE: There is a 4 cm infrarenal abdominal aortic aneurysm. BOWEL: Unremarkable. No obstruction. No gross mural thickening. APPENDIX: Unremarkable. Normal appendix. PERITONEUM: Unremarkable. No free fluid. No free air. LYMPH NODES: Unremarkable. No enlarged lymph nodes. BLADDER: Unremarkable. REPRODUCTIVE: Unremarkable. BONES: No acute fracture. OTHER FINDINGS: None. IMPRESSION: No acute intra-abdominal findings
--- NOTE | 2017-11-14 16:42 | CT ---
PROCEDURE: CT Chest with contrast (Pulmonary Angiogram) HISTORY: dyspnea COMPARISON: None available. TECHNIQUE: Axial computed tomography images were obtained of the chest in the pulmonary arterial phase of enhancement. Coronal and sagittal reformatted images were created and reviewed. Intravenous contrast dose: 100 cc of Visipaque Radiation dose: Total exam DLP = 482 mGy-cm. This CT exam was performed using one or more of the following dose reduction techniques: Automated exposure control, adjustment of the mA and/or kV according to patient size, and/or use of iterative reconstruction technique. FINDINGS: PULMONARY ARTERIES: Unremarkable. No pulmonary embolism. AORTA: No acute findings. No thoracic aortic aneurysm. LUNGS: Unremarkable. No nodule, mass or pulmonary consolidation. PLEURAL SPACES: Unremarkable. No effusion or pneuomothorax. HEART: Unremarkable. No cardiomegaly. No significant pericardial effusion. LYMPH NODES: No lymphadenopathy. BONES, CHEST WALL: Unremarkable. No fracture or destructive lesion OTHER FINDINGS: Unremarkable. IMPRESSION: Unremarkable CT pulmonary angiogram. No pulmonary embolus.
[2017-11-14 17:33] VITALS: BP 118/64; PULSE 67
--- NOTE | 2017-11-14 22:42 | CARD ---
APPROVED REPORT EKG Measurement Heart [id number] NC [id number] <Conclusion> Sinus bradycardia Nonspecific T wave abnormality Abnormal ECG
== END 2017-11-14 18:20 | disposition home or self-care (01) ==
LOC: ED 11:50
DX: I71.4 Abdominal aortic aneurysm, without rupture (principal); R91.1 Solitary pulmonary nodule; K62.89 Other specified diseases of anus and rectum; I10 Essential (primary) hypertension; J44.9 Chronic obstructive pulmonary disease, unspecified; E03.9 Hypothyroidism, unspecified; F17.210 Nicotine dependence, cigarettes, uncomplicated
CPT/HCPCS: 71045; 71275; 74176; 80053; 80324; 80345; 80346; 80349; 80353; 80358; 80361; 81001; 82550; 83615; 83735; 83992; 84484; 85025; 87045; 89055; 93005; 99284; Q9967

== ENCOUNTER 2018-05-10 17:26 | Emergency (ER) | payer OTHER ==
[2018-05-10 17:37] VITALS: BMI 27.4
[2018-05-10 17:38] VITALS: RESP 18; TEMP 98.9; O2SAT 100
--- NOTE | 2018-05-10 17:54 | ED PDOC ---
Arrival/HPI - General Chief Complaint: Female Genitourinary Time Seen by Provider: 05/10/18 17:32 Historian: Patient - History of Present Illness Narrative History of Present Illness (Text): 05/10/18 17:54 57 year old female whose past medical history includes HIV, who presents to the Emergency department complaining of oliguria and constipation. Patient reports being unable to urinate since last night and has tried drinking plenty of fluids. Yesterday she tried to urinate but only produced dark droplets of urine. Patient also has a history of constipation and requires taking laxatives to have bowel movements. She reports that her last bowel movement was 2 days ago and notes that her stool was coal like in color and thick. She has tried to take laxatives with no alleviation of her constipation. Patient admits to feeling bloated/ abdominal pressure. Of note she has a history of heroin use and last used today. Denies using any other drugs today. She mentions that she has presented to the hospital 4-5 months ago with similar symptoms. Patient is HIV positive and last saw her infectious disease specialist approximately 2 months ago, and as per patient the virus was undetectable. She admits that she isn't completely compliant with her HAART therapy and doesn't regularly take her medication. Her shortness of breath hasn't worsened from her norm. Patient denies fevers, chills, cough, chest pain, dyspnea on exertion, nausea, vomiting , diarrhea, back pain, neck pain, headache, dizziness, or any other complaint. Infectious disease: Patient doesn't remember physician's name No PMD. Time/Duration: 24 hours Symptom Onset: Sudden Symptom Course: Unchanged Context: Home Past Medical History - Provider Review Nursing Documentation Reviewed: Yes - Infectious Disease Hx of Infectious Diseases: None - Tetanus Immunization Tetanus Immunization: Unknown - Cardiac Hx Cardiac Disorders: Yes Hx Hypertension: Yes - Pulmonary Hx Respiratory Disorders: Yes Hx Chronic Obstructive Pulmonary Disease (COPD): Yes - Neurological Hx Neurological Disorder: No - HEENT Hx HEENT Disorder: Yes Hx Cataracts: Yes Other/Comment: BLIND L EYE - Renal Hx Renal Disorder: No - Endocrine/Metabolic Hx Endocrine Disorders: Yes Hx Hypothyroidism: Yes - Hematological/Oncological Hx Blood Disorders: Yes Hx Anemia: Yes - Integumentary Hx Dermatological Disorder: No - Musculoskeletal/Rheumatological Hx Musculoskeletal Disorders: Yes Hx Herniated Disk: Yes (lower back) Hx Unsteady Gait: Yes - Gastrointestinal Hx Gastrointestinal Disorders: Yes Hx Constipation: Yes Hx Gastroesophageal Reflux: Yes - Genitourinary/Gynecological Hx Genitourinary Disorders: No - Psychiatric Hx Psychophysiologic Disorder: Yes Hx Substance Use: Yes (HEROIN USE LAST NIGHT) Other/Comment: cocaine and heroin use, smoker - Surgical History Hx Orthopedic Surgery: Yes Other/Comment: Uterine biopsy - Anesthesia Hx Anesthesia: Yes Hx Anesthesia Reactions: No Hx Malignant Hyperthermia: No - Suicidal Assessment Feels Threatened In Home Enviroment: No Family/Social History - Physician Review Nursing Documentation Reviewed: Yes Family/Social History: No Known Family HX Smoking Status: Heavy Smoker > 10 Cigarettes Daily Hx Alcohol Use: No Hx Substance Use: Yes (HEROIN USE LAST NIGHT) Substance used: cocaine/heroine Hx Substance Use Treatment: No Allergies/Home Meds Allergies/Adverse Reactions: Allergies No Known Allergies Allergy (Verified 05/10/18 17:39) Home Medications: Home Meds Medication Instructions Recorded Confirmed Amlodipine Besylate [Norvasc] 10 mg PO DAILY 04/13/16 11/14/17 Benazepril HCl [Lotensin] 10 mg PO DAILY 04/13/16 11/14/17 Levothyroxine [Synthroid] 200 mcg PO DAILY 04/13/16 11/14/17 Atorvastatin [Lipitor] 20 mg PO DAILY 03/28/17 11/14/17 Elviteg/Cob/Emtri/Tenof Alafen 1 tab PO DAILY 07/04/17 11/14/17 [Genvoya Tablet] Review of Systems - Physician Review All systems were reviewed & negative as marked: Yes - Review of Systems Constitutional: absent: Fevers, Night Sweats Respiratory: absent: SOB, Cough Cardiovascular: absent: Chest Pain, MUSE Gastrointestinal: Constipation, Other (abdominal pressure). absent: Nausea, Vomiting Genitourinary Female: Frequency (hasn't urinated since last night.), Urine Output Changes Musculoskeletal: Myalgias (Occasional sharp and burning pain in bilateral lower extremities) Neurological: absent: Headache, Dizziness Physical Exam Vital Signs Reviewed: Yes Vital Signs Temp Pulse Resp BP Pulse Ox 05/10/18 17:37 98.9 F 67 18 127/86 100 Temperature: Afebrile Blood Pressure: Normal Pulse: Regular Respiratory Rate: Normal Appearance: Positive for: Well-Appearing Mental Status: Positive for: Alert and Oriented X 3 - Systems Exam Head: Present: Atraumatic, Normocephalic Pupils: Present: PERRL (right eye), Other (blind in Left eye) Extroacular Muscles: Present: EOMI Conjunctiva: Present: Normal Mouth: Present: Moist Mucous Membranes Neck: Present: Normal Range of Motion Respiratory/Chest: Present: Clear to Auscultation, Good Air Exchange. No: Respiratory Distress, Accessory Muscle Use Cardiovascular: Present: Regular Rate and Rhythm, Normal S1, S2. No: Murmurs Abdomen: Present: Distention. No: Tenderness, Peritoneal Signs, Rebound, Guarding Back: Present: Normal Inspection Upper Extremity: Present: Normal Inspection. No: Cyanosis, Edema Lower Extremity: Present: Normal Inspection. No: Edema Neurological: Present: GCS=15, CN II-XII Intact, Speech Normal Skin: Present: Other (skin sloughing of bilateral upper extremities, open wounds on fingers). No: Rashes Psychiatric: Present: Alert, Oriented x 3, Normal Insight, Normal Concentration Medical Decision Making ED Course and Treatment: 05/10/18 17:54 Impression: 57 year old female who is HIV positive presents to the Emergency department complaining of oliguria and constipation since yesterday. Differential Diagnosis included but are not limited to: Urinary retention UTI [place] Plan: -- Urinalysis -- Urine culture -- urine catheter placement -- Reassess and disposition Prior Visits: Notes and results from previous visits were reviewed. Progress Notes: - Lab Interpretations Lab Results: Lab Results 05/10/18 18:07: Urine Color Yellow, Urine Appearance Clear, Urine pH 6.0, Ur Specific [place] >= 1.030, Urine Protein 30 H, Urine Glucose (UA) Negative, Urine Ketones Trace H, Urine Blood Negative, Urine Nitrate Negative, Urine Bilirubin Small H, Urine Urobilinogen 0.2, Ur Leukocyte Esterase Negative, Urine RBC Negative, Urine WBC 5 - 10, Ur Epithelial Cells 6 - 8, Calcium Oxalate Crystal Few, Urine Bacteria Few, Hyaline Casts 2 - 5, WBC Casts 0 - 2 H I have reviewed the lab results: Yes - Scribe Statement The provider has reviewed the documentation as recorded by the Scribe Sebas Fierro Provider Scribe Attestation: All medical record entries made by the Scribe were at my direction and personally dictated by me. I have reviewed the chart and agree that the record accurately reflects my personal performance of the history, physical exam, medical decision making, and the department course for this patient. I have also personally directed, reviewed, and agree with the discharge instructions and disposition. Disposition/Present on Arrival - Present on Arrival Any Indicators Present on Arrival: No History of DVT/PE: No History of Uncontrolled Diabetes: No Urinary Catheter: No History of Decub. Ulcer: No History Surgical Site Infection Following: None - Disposition Have Diagnosis and Disposition been Completed?: Yes Diagnosis: Urinary retention, Acute cystitis Disposition: HOME/ ROUTINE Disposition Time: 20:33 Patient Plan: Discharge Patient Problems: Current Active Problems Problem Status Onset Acute cystitis Acute Urinary retention Acute Condition: IMPROVED Discharge Instructions (ExitCare): Acute Cystitis (DC) Prescriptions: Cephalexin [cephalexin] 500 mg PO BID 5 Days #10 cap Referrals: FAMILY PROVIDER,NO [Primary Care Provider] - Follow up with primary Forms: [employer] (Khmer)
[2018-05-10 18:36] LABS: URINE BILIRUBIN SMALL (NEGATIVE); URINE BLOOD NEGATIVE (NEGATIVE); URINE GLUCOSE (UA) NEGATIVE (NEGATIVE); URINE LEUKOCYTE ESTERASE NEGATIVE Leu/uL (NEGATIVE); URINE PROTEIN 30 mg/dL (<30 mg/dL); URINE UROBILINOGEN 0.2 E.U./dL (<1 E.U./dL)
[2018-05-10 18:39] LABS: URINE APPEARANCE CLEAR (CLEAR); URINE COLOR YELLOW (YELLOW)
[2018-05-10 19:22] LABS: URINE RBC NEGATIVE /hpf (0-2)
[2018-05-10 19:23] LABS: URINE BACTERIA FEW (NEG)
[2018-05-10 19:24] LABS: URINE CALCIUM OXALATE CRYSTALS FEW /hpf; URINE WHITE BLOOD CELL CAST 0 - 2 /hpf
[2018-05-10 20:37] VITALS: BP 131/92; PULSE 72
== END 2018-05-10 20:29 | disposition home or self-care (01) ==
LOC: ED 17:26
DX: N30.00 Acute cystitis without hematuria (principal); R33.9 Retention of urine, unspecified; I10 Essential (primary) hypertension; Z21 Asymptomatic human immunodeficiency virus [HIV] infection status; F17.210 Nicotine dependence, cigarettes, uncomplicated; E03.9 Hypothyroidism, unspecified

== ENCOUNTER 2018-10-04 20:50 | Observation (INO) | payer OTHER ==
[2018-10-04] MEDS ORDERED: Albuterol 0.083% Inhal Sol (2.5 mg/3 mL) UD INH STA (21:33)
[2018-10-04] MEDS ORDERED: Sodium Chloride 0.9% 1,000 ML IV STA (21:33)
[2018-10-04 22:10] LABS: VENOUS BLOOD GAS BASE EXCESS 8.7 mmol/L (0.0-2.0); VENOUS BLOOD GAS PO2 45 mm/Hg (30-55); VENOUS BLOOD PH 7.38 (7.32-7.43)
[2018-10-04 22:12] LABS: BASO # 0.03 K/mm3 (0.0-2.0); BASO % 0.5 % (0.0-3.0); EOS % 0.6 % (1.5-5.0); GRAN # 3.14 (1.4-6.5); GRAN % 47.7 % (50.0-68.0); HEMOGLOBIN 11.8 g/dL (12.0-16.0); LYMPH # 3.1 (1.2-3.4); LYMPH % 46.5 % (22.0-35.0); MEAN CELL VOLUME 90.8 fl (80.0-105.0); MEAN CORPUSCULAR HEMOGLOBIN 28.7 pg (25.0-35.0); MEAN CORPUSCULAR HGB CONC 31.6 g/dl (31.0-37.0); MEAN PLATELET VOLUME 10.5 fl (7.0-11.0); MONO # 0.3 (0.1-0.6); MONO % 4.7 % (1.0-6.0); RBC 4.11 10^6/uL (3.5-6.1); RED CELL DISTRIBUTION WIDTH 15.6 % (11.5-14.5); WHITE BLOOD COUNT 6.6 10^3/uL (4.5-11.0)
[2018-10-04 22:20] LABS: CALCIUM 8.7 mg/dL (8.4-10.5)
--- NOTE | 2018-10-04 22:20 | ED PDOC ---
Arrival/HPI - General Chief Complaint: Weakness/Neurological Deficit Time Seen by Provider: 10/04/18 21:06 Historian: Patient - History of Present Illness Narrative History of Present Illness (Text): 10/04/18 22:17 57 year old female smoker, whose past medical history includes HIV, hypothyroidism, COPD, and hypertension, presents to the emergency department with generalized weakness and difficulty breathing, for one week. States "I don't feel well". She states that she is supposed to be on HIV medication, but ran out about a week ago. She does not know her viral load or CD4 count. Patient denies any chest pain, fever, cough, abdominal pain, nausea, vomiting, or any other complaints. Time/Duration: 1 week Symptom Onset: Gradual Symptom Course: Unchanged Activities at Onset: Light Context: Home Past Medical History - Provider Review Nursing Documentation Reviewed: Yes - Infectious Disease Hx of Infectious Diseases: None - Tetanus Immunization Tetanus Immunization: Unknown - Cardiac Hx Cardiac Disorders: Yes Hx Hypertension: Yes - Pulmonary Hx Respiratory Disorders: Yes Hx Chronic Obstructive Pulmonary Disease (COPD): Yes - Neurological Hx Neurological Disorder: No - HEENT Hx HEENT Disorder: Yes Hx Cataracts: Yes Other/Comment: BLIND L EYE - Renal Hx Renal Disorder: No - Endocrine/Metabolic Hx Endocrine Disorders: Yes Hx Hypothyroidism: Yes - Hematological/Oncological Hx Blood Disorders: Yes Hx Anemia: Yes - Integumentary Hx Dermatological Disorder: No - Musculoskeletal/Rheumatological Hx Musculoskeletal Disorders: Yes Hx Herniated Disk: Yes (lower back) Hx Unsteady Gait: Yes - Gastrointestinal Hx Gastrointestinal Disorders: Yes Hx Constipation: Yes Hx Gastroesophageal Reflux: Yes - Genitourinary/Gynecological Hx Genitourinary Disorders: No - Psychiatric Hx Psychophysiologic Disorder: Yes Hx Substance Use: Yes Other/Comment: cocaine and heroin use, smoker - Surgical History Hx Orthopedic Surgery: Yes Other/Comment: Uterine biopsy - Anesthesia Hx Anesthesia: Yes Hx Anesthesia Reactions: No Hx Malignant Hyperthermia: No - Suicidal Assessment Feels Threatened In Home Enviroment: No Family/Social History - Physician Review Nursing Documentation Reviewed: Yes Family/Social History: No Known Family HX Smoking Status: Heavy Smoker > 10 Cigarettes Daily Hx Alcohol Use: No Hx Substance Use: Yes Substance used: cocaine/heroine Hx Substance Use Treatment: No Allergies/Home Meds Allergies/Adverse Reactions: Allergies No Known Allergies Allergy (Verified 10/04/18 21:06) Home Medications: Home Meds Medication Instructions Recorded Confirmed RX: Amlodipine Besylate [Norvasc] 10 mg PO DAILY 04/13/16 10/04/18 RX: Benazepril HCl [Lotensin] 10 mg PO DAILY 04/13/16 10/04/18 RX: Levothyroxine [Synthroid] 150 mcg PO DAILY 04/13/16 10/04/18 RX: Atorvastatin [Lipitor] 20 mg PO DAILY 03/28/17 10/04/18 Elviteg/Cob/Emtri/Tenof Alafen 1 tab PO DAILY 10/04/18 10/04/18 [Genvoya Tablet] Review of Systems - Physician Review All systems were reviewed & negative as marked: Yes - Review of Systems Constitutional: Fatigue (Generalized weakness). absent: Fevers Respiratory: SOB (difficulty breathing). absent: Cough Cardiovascular: absent: Chest Pain Gastrointestinal: absent: Abdominal Pain, Nausea, Vomiting Physical Exam Vital Signs Reviewed: Yes Vital Signs Temp Pulse Resp BP Pulse Ox 10/04/18 21:02 97.8 F 69 18 145/94 H 95 Temperature: Afebrile Blood Pressure: Hypertensive Pulse: Regular Respiratory Rate: Normal Appearance: Positive for: Well-Appearing, Non-Toxic, Comfortable Pain Distress: None Mental Status: Positive for: Alert and Oriented X 3 - Systems Exam Head: Present: Atraumatic, Normocephalic Pupils: Present: PERRL Extroacular Muscles: Present: EOMI Conjunctiva: Present: Normal Mouth: Present: Moist Mucous Membranes Neck: Present: Normal Range of Motion Respiratory/Chest: Present: Clear to Auscultation, Good Air Exchange, Wheezes (Scattered high pitched wheezes bilaterally). No: Respiratory Distress, Accessory Muscle Use Cardiovascular: Present: Regular Rate and Rhythm, Normal S1, S2. No: Murmurs Abdomen: No: Tenderness, Distention, Peritoneal Signs Back: Present: Normal Inspection Upper Extremity: Present: Normal Inspection, Other (5/5 strength in both arms). No: Cyanosis, Edema Lower Extremity: Present: Normal Inspection, Other (4/5 strength bilaterally). No: Edema Neurological: Present: GCS=15, CN II-XII Intact, Speech Normal, Motor Func Grossly Intact, Normal Sensory Function Skin: Present: Warm, Dry, Normal Color. No: Rashes Psychiatric: Present: Alert, Oriented x 3, Normal Insight, Normal Concentration Medical Decision Making ED Course and Treatment: 10/04/18 22:25 Impression: 57 year old female presents with generalized weakness and difficulty breathing Plan: -- Chest X-ray -- Albuterol -- Potassium -- Blood culture -- Urinalysis -- Reassess and disposition Prior Visits: Notes and results from previous visits were reviewed. Progress Notes: 10/04/18 21:05 EKG reviewed by me, shows: Normal sinus rhythm @ 65bpm Normal axis, Normal intervals, T wave inversion in inferior leads No ST elevation 10/04/18 23:38 XR Chest, 1 View. Portable technique. CLINICAL HISTORY: Dyspnea COMPARISON: None provided. FINDINGS: LUNGS: The lungs appear clear. PLEURAL SPACES: No evidence of pleural effusion or pneumothorax. MEDIASTINUM: There is borderline cardiac enlargement. Some of the apparent enlargement may be artifactual created by cardiac magnification by portable technique. The pulmonary vasculature appears to be normal. No hilar adenopathy is detected. BONES: No aggressive appearing osseous lesion seen. IMPRESSION: 1. No acute cardiopulmonary pathology is evident. 2. Borderline cardiac enlargement. Patient given albuterol neb, with improvement in wheezing. Hypokalemia noted on labs, KCl 40meq ivpb ordered. Given history of HIV, noncompliant with meds, with new generalized weakness and dyspnea, will admit for further evaluation. Case discussed with Dr. Porras, who accepts patient to hospitalist service. vice president sales aware. - Lab Interpretations Lab Results: pO2 45 mm/Hg (30-55) 10/04/18 22:00 VBG pH 7.38 (7.32-7.43) 10/04/18 22:00 VBG pCO2 61.0 (40-60) H 10/04/18 22:00 VBG HCO3 36.1 mmol/l (21-28) H 10/04/18 22:00 VBG Total CO2 38.0 mmol.L (22-28) H 10/04/18 22:00 VBG O2 Sat (Calc) 87.1 % (40-65) H 10/04/18 22:00 VBG Base Excess 8.7 mmol/L (0.0-2.0) H 10/04/18 22:00 VBG Potassium 2.6 mmol/L (3.6-5.2) L 10/04/18 22:00 Sodium 142.0 mmol/L (132-148) 10/04/18 22:00 Chloride 103.0 mmol/L (98-107) 10/04/18 22:00 Glucose 115 mg/dl (65-105) H 10/04/18 22:00 Lactate 1.6 mmol/L (0.7-2.1) 10/04/18 22:00 FiO2 21.0 % 10/04/18 22:00 - RAD Interpretation Radiology Orders: 10/04/18 21:33 CXR [CHEST PORTABLE] [RAD] Stat - Medication Orders Current Medication Orders: Sodium Chloride (Sodium Chloride 0.9%) 1,000 mls @ 999 mls/hr IV .Q1H1M STA Stop: 10/04/18 22:33 Last Admin: 10/04/18 21:58 Dose: 999 mls/hr eMAR Start Stop Document 10/04/18 21:58 CNR (Rec: 10/04/18 21:58 CNR [id number]) Intravenous Solution Start Date 10/04/18 Start Time 21:58 End Date 10/04/18 End time 22:58 Total Infusion Time 60 Discontinued Medications Albuterol Sulfate (Albuterol 0.083% Inhal Natasha (2.5 Mg/3 Ml) Ud) 2.5 mg INH STAT STA Stop: 10/04/18 21:34 Last Admin: 10/04/18 21:49 Dose: 2.5 mg - Scribe Statement The provider has reviewed the documentation as recorded by the Gely Holbrook Provider Scribe Attestation: All medical record entries made by the Gely were at my direction and personally dictated by me. I have reviewed the chart and agree that the record accurately reflects my personal performance of the history, physical exam, medical decision making, and the department course for this patient. I have also personally directed, reviewed, and agree with the discharge instructions and disposition. Disposition/Present on Arrival - Present on Arrival Any Indicators Present on Arrival: No History of DVT/PE: No History of Uncontrolled Diabetes: No Urinary Catheter: No History of Decub. Ulcer: No History Surgical Site Infection Following: None - Disposition Have Diagnosis and Disposition been Completed?: Yes Diagnosis: Dyspnea, Generalized weakness Disposition: HOSPITALIZED Disposition Time: 23:49 Condition: STABLE
[2018-10-04 22:37] LABS: PH,URINE 6.5 (4.7-8.0); URINE BILIRUBIN NEGATIVE (NEGATIVE); URINE BLOOD TRACE-INTACT (NEGATIVE); URINE GLUCOSE (UA) NEGATIVE (NEGATIVE); URINE LEUKOCYTE ESTERASE NEGATIVE Leu/uL (NEGATIVE); URINE PROTEIN 30 mg/dL (<30 mg/dL); URINE UROBILINOGEN 0.2 E.U./dL (<1 E.U./dL)
[2018-10-04 22:42] LABS: URINE APPEARANCE CLEAR (CLEAR); URINE COLOR YELLOW (YELLOW)
[2018-10-04 22:56] LABS: URINE BACTERIA MOD /hpf
--- NOTE | 2018-10-04 23:48 | CP.PCM.HP ---
<Yue Porras - Last Filed: 10/05/18 02:49> Meds Allergies/Adverse Reactions: Allergies Allergy/AdvReac Type Severity Reaction Status Date / Time No Known Allergies Allergy Verified 10/04/18 21:06 Results - Vital Signs Recent Vital Signs: Last Vital Signs Temp 97.8 F 10/04/18 21:02 Pulse 64 10/05/18 01:09 Resp 19 10/05/18 01:09 BP 154/93 H 10/05/18 01:09 Pulse Ox 97 10/05/18 01:09 - Labs Result Diagrams: 10/04/18 22:00 10/04/18 22:00 Labs: Laboratory Results - last 24 hr 10/04/18 10/04/18 10/04/18 22:00 22:00 22:00 WBC 6.6 RBC 4.11 Hgb 11.8 L Hct 37.3 MCV 90.8 MCH 28.7 MCHC 31.6 RDW 15.6 H Plt Count 151 MPV 10.5 Gran % 47.7 L Lymph % (Auto) 46.5 H [place] % (Auto) 4.7 Eos % (Auto) 0.6 L Baso % (Auto) 0.5 Gran # 3.14 Lymph # (Auto) 3.1 [place] # (Auto) 0.3 Eos # (Auto) 0.0 Baso # (Auto) 0.03 pO2 45 VBG pH 7.38 VBG pCO2 61.0 H VBG HCO3 36.1 H VBG Total CO2 38.0 H VBG O2 Sat (Calc) 87.1 H VBG Base Excess 8.7 H VBG Potassium 2.6 L Sodium 140 142.0 Chloride 101 103.0 Glucose 115 H Lactate 1.6 FiO2 21.0 Potassium 2.7 L* Carbon Dioxide 34 H Anion Gap 8 L BUN 14 Creatinine 1.5 H Est GFR ( Amer) 44 Est GFR (Non-Af Amer) 36 Random Glucose 112 H Calcium 8.7 Total Bilirubin 0.4 AST 71 H D ALT 44 Alkaline Phosphatase 78 Troponin I Total Protein 7.9 Albumin 4.0 Globulin 3.9 Albumin/Globulin Ratio 1.0 L Venous Blood Potassium 2.6 L Urine Color Urine Appearance Urine pH Ur Specific [place] Urine Protein Urine Glucose (UA) Urine Ketones Urine Blood Urine Nitrate Urine Bilirubin Urine Urobilinogen Ur Leukocyte Esterase Urine RBC Urine WBC Ur Epithelial Cells Urine Bacteria Urine Other Urine Opiates Screen Urine Methadone Screen Ur Barbiturates Screen Ur Phencyclidine Scrn Ur Amphetamines Screen U Benzodiazepines Scrn U Oth Cocaine Metabols U Cannabinoids Screen 10/04/18 10/04/18 10/04/18 22:20 22:28 22:33 WBC RBC Hgb Hct MCV MCH MCHC RDW Plt Count MPV Gran % Lymph % (Auto) [place] % (Auto) Eos % (Auto) Baso % (Auto) Gran # Lymph # (Auto) [place] # (Auto) Eos # (Auto) Baso # (Auto) pO2 VBG pH VBG pCO2 VBG HCO3 VBG Total CO2 VBG O2 Sat (Calc) VBG Base Excess VBG Potassium Sodium Chloride Glucose Lactate FiO2 Potassium Carbon Dioxide Anion Gap BUN Creatinine Est GFR ( Amer) Est GFR (Non-Af Amer) Random Glucose Calcium Total Bilirubin AST ALT Alkaline Phosphatase Troponin I 0.02 D Total Protein Albumin Globulin Albumin/Globulin Ratio Venous Blood Potassium Urine Color Yellow Urine Appearance Clear Urine pH 6.5 Ur Specific [place] 1.025 Urine Protein 30 H Urine Glucose (UA) Negative Urine Ketones Negative Urine Blood Trace-intact H Urine Nitrate Negative Urine Bilirubin Negative Urine Urobilinogen 0.2 Ur Leukocyte Esterase Negative Urine RBC 2 - 5 H Urine WBC 1 - 3 Ur Epithelial Cells 10 - 12 H Urine Bacteria Mod Urine Other Uyeast Urine Opiates Screen Positive H Urine Methadone Screen Positive H Ur Barbiturates Screen Negative Ur Phencyclidine Scrn Negative Ur Amphetamines Screen Negative U Benzodiazepines Scrn Negative U Oth Cocaine Metabols Negative U Cannabinoids Screen Negative Attending/Attestation - Attestation I have personally seen and examined this patient.: Yes I have fully participated in the care of the patient.: Yes I have reviewed all pertinent clinical information: Yes Notes (Text): 10/05/18 02:49 Patient was seen when she was in the ER in bed # 3. Medical record was reviewed. Agree with history, physical examination, assessment and plan. 57 year old woman. CC: Generalized weakness. Malaise. SOB. Bodyaches. Chills/fever/diaphoresis. Recent ear infection. Leukocytosis. Elevated creatinine. Hypokalemia. Elevated AST. PMH: HIV. Hypothyriodism. HTN. ?AAA. Anemia. HLD. x 4. Left eye blindness. Left ankle surgery. Uterine surgery. Family history of prostate cancer, DM,HLD,CKD. Smoker. Heroine/cocaine use history. HOME MEDS: Tiparnavir. Synthroid. Benazepril. Lipitor. Norvasc. Emtricitabine/Tenofor. Ritonavir. KCL MV Medrol dose pack. Erythromycin topical. Permethrin topical. ER MEDS: Albuterol inhaler. Normal saline. KCL. <Fred Toribio - Last Filed: 10/05/18 04:20> History of Present Illness - History of Present Illness History of Present Illness: PGY-1 H&P for Dr. Porras CC: Shortness of breath and generalized weakness HPI: 57 year old female smoker, whose past medical history includes HIV on HAART, drug abuse, hypothyroidism, COPD, and hypertension, presents to the emergency department with generalized weakness and shortness of breath, for one week. Batsheva coreas states that she has had a runny nose and a non productive cough for one week. She also complains of generalized weakness the same time her other symptoms started. She states that her sister came to visit her from out of town for one week and noticed that her sister had a cold. Patient has been feeling ill for 1 week and decided to come to the hospital. She denies recent travels. Patient states that she lost her medications at home and had no taken her HIV medications for one week. She states that before last week she was compliant with all her medications. She was diagnosed with HIV when she was 19 years ago. She states that she got HIV from a former boyfriend and denies using IV drugs. Patient does not know her viral load or CD4 count and does not remember when she got tested last. She denies fevers, chills, chest pain, abdominal pain, nausea, vomiting, diarrhea, or urinary symptoms. 12 system ROS reviewed and negative unless stated in HPI. PMHx: HIV on HAART (last known CD4 count: 1254, Viral load:<1.3 on 03/30/2017), Left eye blindness, drug abuse, hypothyroidism, COPD not on home O2, HTN, anemia, HLD. Surgical Hx: 4 c-sections, left ankle surgery, uterine biopsy FHx: Mother had diabetes and heart disease SHx: 10 cig/day for 40 yrs, heroine and cocaine use (last snorted heroin today), denied alcohol use. All: NKDA Medications: Synthroid 200 mcg daily, Benazepril 10 mg daily, Lipitor 20 mg HS, Norvasc 10 mg daily, Genvoya 1 tab daily PMD: Dr. Addie Garcia ID: Dr. Raquel Celaya Present on Admission - Present on Admission Any Indicators Present on Admission: No History of DVT/PE: No History of Uncontrolled Diabetes: No Urinary Catheter: No Decubitus Ulcer Present: No Review of Systems - Review of Systems All systems: reviewed and no additional remarkable complaints except Past Patient History - Infectious Disease Hx of Infectious Diseases: None - Tetanus Immunizations Tetanus Immunization: Unknown - Past Medical History & Family History Past Medical History?: Yes - Past Social History Smoking Status: Heavy Smoker > 10 Cigarettes Daily - CARDIAC Hx Cardiac Disorders: Yes Hx Hypertension: Yes - PULMONARY Hx Respiratory Disorders: Yes Hx Chronic Obstructive Pulmonary Disease (COPD): Yes - NEUROLOGICAL Hx Neurological Disorder: No - HEENT Hx HEENT Problems: Yes Hx Cataracts: Yes Other/Comment: BLIND L EYE - RENAL Hx Chronic Kidney Disease: No - ENDOCRINE/METABOLIC Hx Endocrine Disorders: Yes Hx Hypothyroidism: Yes - HEMATOLOGICAL/ONCOLOGICAL Hx Blood Disorders: Yes Hx Anemia: Yes - INTEGUMENTARY Hx Dermatological Problems: No - MUSCULOSKELETAL/RHEUMATOLOGICAL Hx Musculoskeletal Disorders: Yes Hx Herniated Disk: Yes (lower back) Hx Unsteady Gait: Yes - GASTROINTESTINAL Hx Gastrointestinal Disorders: Yes Hx Constipation: Yes Hx Gastroesophageal Reflux: Yes - GENITOURINARY/GYNECOLOGICAL Hx Genitourinary Disorders: No - PSYCHIATRIC Hx Psychophysiologic Disorder: Yes Hx Substance Use: Yes Other/Comment: cocaine and heroin use, smoker - SURGICAL HISTORY Hx Orthopedic Surgery: Yes Other/Comment: Uterine biopsy - ANESTHESIA Hx Anesthesia: Yes Hx Anesthesia Reactions: No Hx Malignant Hyperthermia: No Physical Exam - Constitutional Appears: Well, Non-toxic, No Acute Distress - Head Exam Head Exam: ATRAUMATIC - Eye Exam Eye Exam: EOMI, PERRL. absent: Scleral icterus Additional comments: Left eye closed, cloudy cornea noted on the left eye. Left pupil not reactive to light. - ENT Exam ENT Exam: Mucous Membranes Dry - Neck Exam Neck exam: Positive for: Normal Inspection - Respiratory Exam Respiratory Exam: Wheezes (mild wheezes throughout). absent: Accessory Muscle Use, Rhonchi, Respiratory Distress - Cardiovascular Exam Cardiovascular Exam: REGULAR RHYTHM, +S1, +S2. absent: Gallop, Rubs, Systolic Murmur - GI/Abdominal Exam GI & Abdominal Exam: Hypoactive Bowel Sounds, Soft. absent: Distended, Guarding, Tenderness - Extremities Exam Extremities exam: Positive for: normal inspection. Negative for: calf tenderness, pedal edema - Neurological Exam Neurological exam: Alert, CN II-XII Intact, Oriented x3 Additional comments: Sensations intact in upper and lower extremities. Muscle strength 5/5 in upper and lower extremities. - Psychiatric Exam Psychiatric exam: Flat Affect - Skin Skin Exam: Dry, Intact, Warm Additional comments: Dry, scaly patches of skin noted on bilateral dorsal side of hands and bilateral feet extending to the anterior legs. Results - Vital Signs Recent Vital Signs: Last Vital Signs Temp 97.8 F 10/04/18 21:02 Pulse 60 10/04/18 23:04 Resp 18 10/04/18 23:04 BP 133/84 10/04/18 23:04 Pulse Ox 97 10/04/18 23:04 - Labs Result Diagrams: 10/04/18 22:00 10/04/18 22:00 Labs: Laboratory Results - last 24 hr 10/04/18 10/04/18 10/04/18 22:00 22:00 22:00 WBC 6.6 RBC 4.11 Hgb 11.8 L Hct 37.3 MCV 90.8 MCH 28.7 MCHC 31.6 RDW 15.6 H Plt Count 151 MPV 10.5 Gran % 47.7 L Lymph % (Auto) 46.5 H [place] % (Auto) 4.7 Eos % (Auto) 0.6 L Baso % (Auto) 0.5 Gran # 3.14 Lymph # (Auto) 3.1 [place] # (Auto) 0.3 Eos # (Auto) 0.0 Baso # (Auto) 0.03 pO2 45 VBG pH 7.38 VBG pCO2 61.0 H VBG HCO3 36.1 H VBG Total CO2 38.0 H VBG O2 Sat (Calc) 87.1 H VBG Base Excess 8.7 H VBG Potassium 2.6 L Sodium 140 142.0 Chloride 101 103.0 Glucose 115 H Lactate 1.6 FiO2 21.0 Potassium 2.7 L* Carbon Dioxide 34 H Anion Gap 8 L BUN 14 Creatinine 1.5 H Est GFR ( Amer) 44 Est GFR (Non-Af Amer) 36 Random Glucose 112 H Calcium 8.7 Total Bilirubin 0.4 AST 71 H D ALT 44 Alkaline Phosphatase 78 Total Protein 7.9 Albumin 4.0 Globulin 3.9 Albumin/Globulin Ratio 1.0 L Venous Blood Potassium 2.6 L Urine Color Urine Appearance Urine pH Ur Specific [place] Urine Protein Urine Glucose (UA) Urine Ketones Urine Blood Urine Nitrate Urine Bilirubin Urine Urobilinogen Ur Leukocyte Esterase Urine RBC Urine WBC Ur Epithelial Cells Urine Bacteria Urine Other 10/04/18 22:33 WBC RBC Hgb Hct MCV MCH MCHC RDW Plt Count MPV Gran % Lymph % (Auto) [place] % (Auto) Eos % (Auto) Baso % (Auto) Gran # Lymph # (Auto) [place] # (Auto) Eos # (Auto) Baso # (Auto) pO2 VBG pH VBG pCO2 VBG HCO3 VBG Total CO2 VBG O2 Sat (Calc) VBG Base Excess VBG Potassium Sodium Chloride Glucose Lactate FiO2 Potassium Carbon Dioxide Anion Gap BUN Creatinine Est GFR ( Amer) Est GFR (Non-Af Amer) Random Glucose Calcium Total Bilirubin AST ALT Alkaline Phosphatase Total Protein Albumin Globulin Albumin/Globulin Ratio Venous Blood Potassium Urine Color Yellow Urine Appearance Clear Urine pH 6.5 Ur Specific [place] 1.025 Urine Protein 30 H Urine Glucose (UA) Negative Urine Ketones Negative Urine Blood Trace-intact H Urine Nitrate Negative Urine Bilirubin Negative Urine Urobilinogen 0.2 Ur Leukocyte Esterase Negative Urine RBC 2 - 5 H Urine WBC 1 - 3 Ur Epithelial Cells 10 - 12 H Urine Bacteria Mod Urine Other Uyeast Assessment & Plan - Assessment and Plan (Free Text) Assessment: 57 year old female smoker, whose past medical history includes HIV on HAART, drug abuse, hypothyroidism, COPD, and hypertension, presents to the emergency department with generalized weakness and shortness of breath, for one week. Plan: Shortness of breath - Likely 2/2 CAP vs Flu vs COPD exacerbation - CXR: No acute cardiopulmonary pathology is evident. Borderline cardiac enlargement - Duonebs Q4 PRN - Procalcitonin: pending - LDH: pending - Influenza A/B: pending - S. pneumonia and Legionella: pending - Sputum, blood, urine cultures: pending - Maintain O2 sat >92% Hypokalemia - K: 2.7 - Mg: pending - In ED, got a total of 40 mEq of KCl - KCl oral solution 40mEq PO - KCl ER 40mEq PO - Continue to monitor and replete as needed SAMANTHA - Likely 2/2 dehydration - BUN/Cr: 14/1.5 - IVF: NS @ 75mls/hr - Avoid KENNEY/ARBS - Hold home medication, Benazepril - Avoid nephrotoxins - Continue to monitor Hx of hypothyroidism: - TSH: pending - Hold home Synthroid HIV - Continue home medication - Genvoya 1 tab daily - CD4 count and viral load: pending HTN - Continue home medications - Amlodipine 10mg PO QD - Benazepril held due to SAMANTHA HLD - Continue home medication - Lipitor 20mg PO HS Psoriasis - Hydrocerin cream daily Tobacco abuse disorder - Nicoderm daily - Educated patient on smoking cessation Prophylaxis - DVT: Heparin 5000 units SC Q8 Case discussed with Dr. Vern Toribio, PGY-1
[2018-10-05] MEDS: Albuterol-Ipratrop 3 mg / 0.5 (3 ml) UD IH SCH ×5 (01:01→16:45)
[2018-10-05] MEDS ORDERED: Potassium Chloride 20 mEq ER Tab PO ONE ×4 (01:14→03:17)
[2018-10-05 02:09] LABS: BARBITURATES, UR NEGATIVE (NEGATIVE); BENZODIAZEPINES, UR NEGATIVE (NEGATIVE); OPIATES, UR POSITIVE (NEGATIVE); PHENCYCLIDINE, UR NEGATIVE (NEGATIVE)
[2018-10-05] MEDS ORDERED: Influenza Vaccine 60 mcg/0.5 mL SYR (4YR UP) IM ONE (02:17)
[2018-10-05] MEDS ORDERED: Pneumococcal 23-Valent Vaccine IM ONE (02:17)
[2018-10-05 02:18] VITALS: BMI 28.5
[2018-10-05] MEDS ORDERED: Potassium Chloride 40 mEq/30 ml LIQ UD PO ONE (03:16)
[2018-10-05] MEDS: Sodium Chloride 0.9% 1,000 ML IV SCH (03:21)
[2018-10-05 06:36] LABS: BASO # 0.02 K/mm3 (0.0-2.0); BASO % 0.3 % (0.0-3.0); EOS % 0.3 % (1.5-5.0); GRAN # 2.41 (1.4-6.5); GRAN % 41.3 % (50.0-68.0); HEMOGLOBIN 10.8 g/dL (12.0-16.0); LYMPH # 3.1 (1.2-3.4); LYMPH % 52.5 % (22.0-35.0); MEAN CELL VOLUME 90.6 fl (80.0-105.0); MEAN CORPUSCULAR HEMOGLOBIN 28.1 pg (25.0-35.0); MEAN PLATELET VOLUME 10.5 fl (7.0-11.0); MONO # 0.3 (0.1-0.6); MONO % 5.6 % (1.0-6.0); RBC 3.84 10^6/uL (3.5-6.1); RED CELL DISTRIBUTION WIDTH 15.8 % (11.5-14.5); WHITE BLOOD COUNT 5.9 10^3/uL (4.5-11.0)
[2018-10-05 06:57] LABS: TROPONIN I 0.02 ng/mL
[2018-10-05 07:10] LABS: ALBUMIN 3.5 g/dL (3.0-4.8); CALCIUM 8.2 mg/dL (8.4-10.5)
--- NOTE | 2018-10-05 08:41 | RAD ---
Date of service: 10/04/2018 HISTORY: dyspnea COMPARISON: 11/14/2017 FINDINGS: LUNGS: No active pulmonary disease. PLEURA: No significant pleural effusion identified, no pneumothorax apparent. CARDIOVASCULAR: No aortic atherosclerotic calcification present. Mild aortic tortuosity Mild cardiomegaly no pulmonary vascular congestion. OSSEOUS STRUCTURES: No significant abnormalities. VISUALIZED UPPER ABDOMEN: Normal. OTHER FINDINGS: None. IMPRESSION: No active disease.
[2018-10-05] MEDS: GENVOYA PO SCH (10:03)
[2018-10-05] MEDS: Hydrocerin(120 gm) TOP SCH (10:03)
--- NOTE | 2018-10-05 10:23 | CP.PCM.CON ---
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 Patient states she has shortness of breath at baseline, but became acutely worse yesterday. Of note, patient snorted Heroin yesterday. Patient states her sister at home has been sick with similar symptoms, although she denies having any cough. Patient states she is complaint with all of her medication, however she moved 1 week ago and misplaced her medications. Patient is on Genoya for her HIV. During this time, she has not taken any medication. Patient states her last viral load 2 months ago was undetectable. Denies chest pain, nausea, vomiting, diarrhea, fever, chills, dysuria, congestions, runny nose. Medical Hx: HIV on HAART, Left eye blindness, drug abuse, hypothyroidism, COPD, HTN, anemia, HLD. Surgical Hx: 4 c-sections, left ankle surgery, uterine biopsy Family Hx: Mother: DM and heart disease Social Hx: Current tobacco and illicit drug use. 1/2 ppd x 40 years, heroine and cocaine use, denied alcohol use. Allergies: NKDA Medications: Reviewed, as per MAR Review of Systems - Review of Systems Review of Systems: 12 point ROS as per HPI, otherwise negative Past Patient History - Infectious Disease Hx of Infectious Diseases: None - Tetanus Immunizations Tetanus Immunization: Unknown - Past Medical History & Family History Past Medical History?: Yes - Past Social History Smoking Status: Heavy Smoker > 10 Cigarettes Daily - CARDIAC Hx Cardiac Disorders: Yes Hx Hypertension: Yes - PULMONARY Hx Respiratory Disorders: Yes Hx Chronic Obstructive Pulmonary Disease (COPD): Yes - NEUROLOGICAL Hx Neurological Disorder: No - HEENT Hx HEENT Problems: Yes Hx Cataracts: Yes Other/Comment: BLIND L EYE - RENAL Hx Chronic Kidney Disease: No - ENDOCRINE/METABOLIC Hx Endocrine Disorders: Yes Hx Hypothyroidism: Yes - HEMATOLOGICAL/ONCOLOGICAL Hx Blood Disorders: Yes Hx Anemia: Yes - INTEGUMENTARY Hx Dermatological Problems: No - MUSCULOSKELETAL/RHEUMATOLOGICAL Hx Musculoskeletal Disorders: Yes Hx Herniated Disk: Yes (lower back) Hx Unsteady Gait: Yes - GASTROINTESTINAL Hx Gastrointestinal Disorders: Yes Hx Constipation: Yes Hx Gastroesophageal Reflux: Yes - GENITOURINARY/GYNECOLOGICAL Hx Genitourinary Disorders: No - PSYCHIATRIC Hx Psychophysiologic Disorder: Yes Hx Substance Use: Yes Other/Comment: cocaine and heroin use, smoker - SURGICAL HISTORY Hx Orthopedic Surgery: Yes Other/Comment: Uterine biopsy - ANESTHESIA Hx Anesthesia: Yes Hx Anesthesia Reactions: No Hx Malignant Hyperthermia: No Meds Allergies/Adverse Reactions: Allergies Allergy/AdvReac Type Severity Reaction Status Date / Time No Known Allergies Allergy Verified 10/04/18 21:06 - Medications Medications: Current Medications Albuterol/Ipratropium (Duoneb 3 Mg/0.5 Mg (3 Ml) Ud) 3 ml IH [id number] [facility] Last Admin: 10/05/18 08:18 Dose: 3 ml Amlodipine Besylate (Norvasc) 10 mg PO DAILY [facility] Last Admin: 10/05/18 09:09 Dose: 10 mg Atorvastatin Calcium (Lipitor) 20 mg PO DAILY [facility] Last Admin: 10/05/18 09:09 Dose: 20 mg Heparin Sodium (Porcine) (Heparin) 5,000 units SC Q8 [facility]; Protocol Last Admin: 10/05/18 06:50 Dose: 5,000 units Home Med (Home Med) 1 unit PO DAILY [facility] Last Admin: 10/05/18 10:03 Dose: 1 unit Sodium Chloride (Sodium Chloride 0.9%) 1,000 mls @ 75 mls/hr IV .[id number] [facility] Last Admin: 10/05/18 03:21 Dose: 75 mls/hr Multi-Ingredient Cream (Hydrocerin Cream) 1 ea TOP DAILY [facility] Last Admin: 10/05/18 10:03 Dose: 1 applic Nicotine (Nicoderm Cq) 1 patch TD DAILY [facility] Last Admin: 10/05/18 09:09 Dose: 1 patch Senna/Docusate Sodium (Senokot S 50 Mg-8.6 Mg) 1 tab PO DAILY [facility] Physical Exam - Constitutional Appears: Non-toxic, No Acute Distress - Head Exam Head Exam: ATRAUMATIC, NORMAL INSPECTION, NORMOCEPHALIC - Eye Exam Eye Exam: EOMI, Normal appearance - ENT Exam ENT Exam: Mucous Membranes Moist - Respiratory Exam Respiratory Exam: Decreased Breath Sounds, NORMAL BREATHING PATTERN. absent: Rales, Rhonchi, Wheezes - Cardiovascular Exam Cardiovascular Exam: RRR, +S1, +S2 - GI/Abdominal Exam GI & Abdominal Exam: Normal Bowel Sounds, Soft. absent: Tenderness - Extremities Exam Extremities exam: Positive for: normal inspection. Negative for: pedal edema - Neurological Exam Neurological exam: Alert, CN II-XII Intact, Oriented x3 - Psychiatric Exam Psychiatric exam: Normal Affect, Normal Mood - Skin Skin Exam: Intact, Normal Color, Warm Results - Vital Signs Recent Vital Signs: Last Vital Signs Temp 98.3 F 10/05/18 08:16 Pulse 64 10/05/18 08:16 Resp 20 10/05/18 08:16 BP 150/100 H 10/05/18 09:09 Pulse Ox 94 L 10/05/18 08:16 - Labs Result Diagrams: 10/05/18 06:05 10/05/18 06:05 Labs: Laboratory Results - last 24 hr 10/04/18 10/04/18 10/04/18 22:00 22:00 22:00 WBC 6.6 RBC 4.11 Hgb 11.8 L Hct 37.3 MCV 90.8 MCH 28.7 MCHC 31.6 RDW 15.6 H Plt Count 151 MPV 10.5 Gran % 47.7 L Lymph % (Auto) 46.5 H [place] % (Auto) 4.7 Eos % (Auto) 0.6 L Baso % (Auto) 0.5 Gran # 3.14 Lymph # (Auto) 3.1 [place] # (Auto) 0.3 Eos # (Auto) 0.0 Baso # (Auto) 0.03 pO2 45 VBG pH 7.38 VBG pCO2 61.0 H VBG HCO3 36.1 H VBG Total CO2 38.0 H VBG O2 Sat (Calc) 87.1 H VBG Base Excess 8.7 H VBG Potassium 2.6 L Sodium 140 142.0 Chloride 101 103.0 Glucose 115 H Lactate 1.6 FiO2 21.0 Potassium 2.7 L* Carbon Dioxide 34 H Anion Gap 8 L BUN 14 Creatinine 1.5 H Est GFR ( Amer) 44 Est GFR (Non-Af Amer) 36 Random Glucose 112 H Calcium 8.7 Phosphorus Magnesium Total Bilirubin 0.4 AST 71 H D ALT 44 Alkaline Phosphatase 78 Lactate Dehydrogenase Troponin I Total Protein 7.9 Albumin 4.0 Globulin 3.9 Albumin/Globulin Ratio 1.0 L TSH 3rd Generation Venous Blood Potassium 2.6 L Urine Color Urine Appearance Urine pH Ur Specific [place] Urine Protein Urine Glucose (UA) Urine Ketones Urine Blood Urine Nitrate Urine Bilirubin Urine Urobilinogen Ur Leukocyte Esterase Urine RBC Urine WBC Ur Epithelial Cells Urine Bacteria Urine Other Urine Opiates Screen Urine Methadone Screen Ur Barbiturates Screen Ur Phencyclidine Scrn Ur Amphetamines Screen U Benzodiazepines Scrn U Oth Cocaine Metabols U Cannabinoids Screen 10/04/18 10/04/18 10/04/18 22:20 22:28 22:33 WBC RBC Hgb Hct MCV MCH MCHC RDW Plt Count MPV Gran % Lymph % (Auto) [place] % (Auto) Eos % (Auto) Baso % (Auto) Gran # Lymph # (Auto) [place] # (Auto) Eos # (Auto) Baso # (Auto) pO2 VBG pH VBG pCO2 VBG HCO3 VBG Total CO2 VBG O2 Sat (Calc) VBG Base Excess VBG Potassium Sodium Chloride Glucose Lactate FiO2 Potassium Carbon Dioxide Anion Gap BUN Creatinine Est GFR ( Amer) Est GFR (Non-Af Amer) Random Glucose Calcium Phosphorus Magnesium Total Bilirubin AST ALT Alkaline Phosphatase Lactate Dehydrogenase Troponin I 0.02 D Total Protein Albumin Globulin Albumin/Globulin Ratio TSH 3rd Generation Venous Blood Potassium Urine Color Yellow Urine Appearance Clear Urine pH 6.5 Ur Specific [place] 1.025 Urine Protein 30 H Urine Glucose (UA) Negative Urine Ketones Negative Urine Blood Trace-intact H Urine Nitrate Negative Urine Bilirubin Negative Urine Urobilinogen 0.2 Ur Leukocyte Esterase Negative Urine RBC 2 - 5 H Urine WBC 1 - 3 Ur Epithelial Cells 10 - 12 H Urine Bacteria Mod Urine Other Uyeast Urine Opiates Screen Positive H Urine Methadone Screen Positive H Ur Barbiturates Screen Negative Ur Phencyclidine Scrn Negative Ur Amphetamines Screen Negative U Benzodiazepines Scrn Negative U Oth Cocaine Metabols Negative U Cannabinoids Screen Negative 10/05/18 10/05/18 10/05/18 06:05 06:05 06:05 WBC 5.9 RBC 3.84 Hgb 10.8 L Hct 34.8 L MCV 90.6 MCH 28.1 MCHC 31.0 RDW 15.8 H Plt Count 143 MPV 10.5 Gran % 41.3 L Lymph % (Auto) 52.5 H [place] % (Auto) 5.6 Eos % (Auto) 0.3 L Baso % (Auto) 0.3 Gran # 2.41 Lymph # (Auto) 3.1 [place] # (Auto) 0.3 Eos # (Auto) 0.0 Baso # (Auto) 0.02 pO2 VBG pH VBG pCO2 VBG HCO3 VBG Total CO2 VBG O2 Sat (Calc) VBG Base Excess VBG Potassium Sodium 143 Chloride 110 H Glucose Lactate FiO2 Potassium 3.7 Carbon Dioxide 30 Anion Gap 7 L BUN 11 Creatinine 1.2 Est GFR ( Amer) 56 Est GFR (Non-Af Amer) 47 Random Glucose 95 Calcium 8.2 L Phosphorus 2.3 L Magnesium 2.2 Total Bilirubin 0.3 AST 66 H ALT 40 Alkaline Phosphatase 69 Lactate Dehydrogenase 951 H Troponin I 0.02 Total Protein 7.0 Albumin 3.5 Globulin 3.5 Albumin/Globulin Ratio 1.0 L TSH 3rd Generation 108.00 H Venous Blood Potassium Urine Color Urine Appearance Urine pH Ur Specific [place] Urine Protein Urine Glucose (UA) Urine Ketones Urine Blood Urine Nitrate Urine Bilirubin Urine Urobilinogen Ur Leukocyte Esterase Urine RBC Urine WBC Ur Epithelial Cells Urine Bacteria Urine Other Urine Opiates Screen Urine Methadone Screen Ur Barbiturates Screen Ur Phencyclidine Scrn Ur Amphetamines Screen U Benzodiazepines Scrn U Oth Cocaine Metabols U Cannabinoids Screen Assessment & Plan - Assessment and Plan (Free Text) Plan: Shortness of breath Hx of HIV on Genoya Hx of medication noncompliance Hx of hypothyroidism Hx of COPD Hx of HTN Plan Patient currently afebrile with no leukocytosis Chest x-ray reviewed, no acute pathology noted UDS positive for Opioids and Methadone Will monitor off antibiotics at this time Blood, urine, and sputum cultures pending Strep pneumo and Influenza pending Will obtain HIV viral load and CD4 count Recommend patient restart HAART therapy Shaina, PGY-3 <Modesto Erwin - Last Filed: 10/05/18 15:04> Meds - Medications Medications: Current Medications Albuterol/Ipratropium (Duoneb 3 Mg/0.5 Mg (3 Ml) Ud) 3 ml IH [id number] [facility] Last Admin: 10/05/18 11:18 Dose: 3 ml Amlodipine Besylate (Norvasc) 10 mg PO DAILY [facility] Last Admin: 10/05/18 09:09 Dose: 10 mg Atorvastatin Calcium (Lipitor) 20 mg PO DAILY [facility] Last Admin: 10/05/18 09:09 Dose: 20 mg Heparin Sodium (Porcine) (Heparin) 5,000 units SC Q8 [facility]; Protocol Last Admin: 10/05/18 13:47 Dose: 5,000 units Home Med (Home Med) 1 unit PO DAILY [facility] Last Admin: 10/05/18 10:03 Dose: 1 unit Sodium Chloride (Sodium Chloride 0.9%) 1,000 mls @ 75 mls/hr IV .[id number] [facility] Last Admin: 10/05/18 03:21 Dose: 75 mls/hr Levothyroxine Sodium (Synthroid) 150 mcg PO DAILY [facility] Last Admin: 10/05/18 13:47 Dose: Not Given Multi-Ingredient Cream (Hydrocerin Cream) 1 ea TOP DAILY [facility] Last Admin: 10/05/18 10:03 Dose: 1 applic Nicotine (Nicoderm Cq) 1 patch TD DAILY [facility] Last Admin: 10/05/18 09:09 Dose: 1 patch Senna/Docusate Sodium (Senokot S 50 Mg-8.6 Mg) 1 tab PO DAILY [facility] Last Admin: 10/05/18 13:47 Dose: 1 tab Results - Vital Signs Recent Vital Signs: Last Vital Signs Temp 98.3 F 10/05/18 08:16 Pulse 64 10/05/18 08:16 Resp 20 10/05/18 08:16 BP 150/100 H 10/05/18 09:09 Pulse Ox 94 L 10/05/18 08:16 - Labs Result Diagrams: 10/05/18 06:05 10/05/18 06:05 Labs: Laboratory Results - last 24 hr 10/04/18 10/04/18 10/04/18 22:00 22:00 22:00 WBC 6.6 RBC 4.11 Hgb 11.8 L Hct 37.3 MCV 90.8 MCH 28.7 MCHC 31.6 RDW 15.6 H Plt Count 151 MPV 10.5 Gran % 47.7 L Lymph % (Auto) 46.5 H [place] % (Auto) 4.7 Eos % (Auto) 0.6 L Baso % (Auto) 0.5 Gran # 3.14 Lymph # (Auto) 3.1 [place] # (Auto) 0.3 Eos # (Auto) 0.0 Baso # (Auto) 0.03 pO2 45 VBG pH 7.38 VBG pCO2 61.0 H VBG HCO3 36.1 H VBG Total CO2 38.0 H VBG O2 Sat (Calc) 87.1 H VBG Base Excess 8.7 H VBG Potassium 2.6 L Sodium 140 142.0 Chloride 101 103.0 Glucose 115 H Lactate 1.6 FiO2 21.0 Potassium 2.7 L* Carbon Dioxide 34 H Anion Gap 8 L BUN 14 Creatinine 1.5 H Est GFR ( Amer) 44 Est GFR (Non-Af Amer) 36 Random Glucose 112 H Calcium 8.7 Phosphorus Magnesium Total Bilirubin 0.4 AST 71 H D ALT 44 Alkaline Phosphatase 78 Lactate Dehydrogenase Troponin I Total Protein 7.9 Albumin 4.0 Globulin 3.9 Albumin/Globulin Ratio 1.0 L Procalcitonin TSH 3rd Generation Venous Blood Potassium 2.6 L Urine Color Urine Appearance Urine pH Ur Specific [place] Urine Protein Urine Glucose (UA) Urine Ketones Urine Blood Urine Nitrate Urine Bilirubin Urine Urobilinogen Ur Leukocyte Esterase Urine RBC Urine WBC Ur Epithelial Cells Urine Bacteria Urine Other Urine Opiates Screen Urine Methadone Screen Ur Barbiturates Screen Ur Phencyclidine Scrn Ur Amphetamines Screen U Benzodiazepines Scrn U Oth Cocaine Metabols U Cannabinoids Screen 10/04/18 10/04/18 10/04/18 22:20 22:28 22:33 WBC RBC Hgb Hct MCV MCH MCHC RDW Plt Count MPV Gran % Lymph % (Auto) [place] % (Auto) Eos % (Auto) Baso % (Auto) Gran # Lymph # (Auto) [place] # (Auto) Eos # (Auto) Baso # (Auto) pO2 VBG pH VBG pCO2 VBG HCO3 VBG Total CO2 VBG O2 Sat (Calc) VBG Base Excess VBG Potassium Sodium Chloride Glucose Lactate FiO2 Potassium Carbon Dioxide Anion Gap BUN Creatinine Est GFR ( Amer) Est GFR (Non-Af Amer) Random Glucose Calcium Phosphorus Magnesium Total Bilirubin AST ALT Alkaline Phosphatase Lactate Dehydrogenase Troponin I 0.02 D Total Protein Albumin Globulin Albumin/Globulin Ratio Procalcitonin TSH 3rd Generation Venous Blood Potassium Urine Color Yellow Urine Appearance Clear Urine pH 6.5 Ur Specific [place] 1.025 Urine Protein 30 H Urine Glucose (UA) Negative Urine Ketones Negative Urine Blood Trace-intact H Urine Nitrate Negative Urine Bilirubin Negative Urine Urobilinogen 0.2 Ur Leukocyte Esterase Negative Urine RBC 2 - 5 H Urine WBC 1 - 3 Ur Epithelial Cells 10 - 12 H Urine Bacteria Mod Urine Other Uyeast Urine Opiates Screen Positive H Urine Methadone Screen Positive H Ur Barbiturates Screen Negative Ur Phencyclidine Scrn Negative Ur Amphetamines Screen Negative U Benzodiazepines Scrn Negative U Oth Cocaine Metabols Negative U Cannabinoids Screen Negative 10/05/18 10/05/18 10/05/18 06:05 06:05 06:05 WBC 5.9 RBC 3.84 Hgb 10.8 L Hct 34.8 L MCV 90.6 MCH 28.1 MCHC 31.0 RDW 15.8 H Plt Count 143 MPV 10.5 Gran % 41.3 L Lymph % (Auto) 52.5 H [place] % (Auto) 5.6 Eos % (Auto) 0.3 L Baso % (Auto) 0.3 Gran # 2.41 Lymph # (Auto) 3.1 [place] # (Auto) 0.3 Eos # (Auto) 0.0 Baso # (Auto) 0.02 pO2 VBG pH VBG pCO2 VBG HCO3 VBG Total CO2 VBG O2 Sat (Calc) VBG Base Excess VBG Potassium Sodium 143 Chloride 110 H Glucose Lactate FiO2 Potassium 3.7 Carbon Dioxide 30 Anion Gap 7 L BUN 11 Creatinine 1.2 Est GFR ( Amer) 56 Est GFR (Non-Af Amer) 47 Random Glucose 95 Calcium 8.2 L Phosphorus 2.3 L Magnesium 2.2 Total Bilirubin 0.3 AST 66 H ALT 40 Alkaline Phosphatase 69 Lactate Dehydrogenase 951 H Troponin I 0.02 Total Protein 7.0 Albumin 3.5 Globulin 3.5 Albumin/Globulin Ratio 1.0 L Procalcitonin < 0.05 L TSH 3rd Generation Venous Blood Potassium Urine Color Urine Appearance Urine pH Ur Specific [place] Urine Protein Urine Glucose (UA) Urine Ketones Urine Blood Urine Nitrate Urine Bilirubin Urine Urobilinogen Ur Leukocyte Esterase Urine RBC Urine WBC Ur Epithelial Cells Urine Bacteria Urine Other Urine Opiates Screen Urine Methadone Screen Ur Barbiturates Screen Ur Phencyclidine Scrn Ur Amphetamines Screen U Benzodiazepines Scrn U Oth Cocaine Metabols U Cannabinoids Screen 10/05/18 10/05/18 06:05 11:00 WBC RBC Hgb Hct MCV MCH MCHC RDW Plt Count MPV Gran % Lymph % (Auto) [place] % (Auto) Eos % (Auto) Baso % (Auto) Gran # Lymph # (Auto) [place] # (Auto) Eos # (Auto) Baso # (Auto) pO2 VBG pH VBG pCO2 VBG HCO3 VBG Total CO2 VBG O2 Sat (Calc) VBG Base Excess VBG Potassium Sodium Chloride Glucose Lactate FiO2 Potassium Carbon Dioxide Anion Gap BUN Creatinine Est GFR ( Amer) Est GFR (Non-Af Amer) Random Glucose Calcium Phosphorus Magnesium Total Bilirubin AST ALT Alkaline Phosphatase Lactate Dehydrogenase Troponin I < 0.01 D Total Protein Albumin Globulin Albumin/Globulin Ratio Procalcitonin TSH 3rd Generation 108.00 H Venous Blood Potassium Urine Color Urine Appearance Urine pH Ur Specific [place] Urine Protein Urine Glucose (UA) Urine Ketones Urine Blood Urine Nitrate Urine Bilirubin Urine Urobilinogen Ur Leukocyte Esterase Urine RBC Urine WBC Ur Epithelial Cells Urine Bacteria Urine Other Urine Opiates Screen Urine Methadone Screen Ur Barbiturates Screen Ur Phencyclidine Scrn Ur Amphetamines Screen U Benzodiazepines Scrn U Oth Cocaine Metabols U Cannabinoids Screen Assessment & Plan - Assessment and Plan (Free Text) Plan: Infectious diseases Attending Physician Attestation Patient seen and examined, discussed with medical collections. I have reviewed the patient's history of present illness, past medical, social, personal and family histories, pertinent physical exam findings, course so far in this hospital admission, pertinent laboratory and imaging results. I agree with the above findings, assessment and plan. In addition, continue cART for chronic HIV infection. Patient with upper respiratory tract infection, probably viral. Continue supportive care as per medicine team. Reviewed CXR which is read as no active disease.
--- NOTE | 2018-10-05 13:41 | CARD ---
APPROVED REPORT Date of service: 10/04/2018 EKG Measurement Heart [id number] <Conclusion> Normal sinus rhythm Inferior infarct, age undetermined Abnormal ECG
[2018-10-05] MEDS: Docusate-Senna 50 mg-8.6 mg Tab PO SCH (13:47)
[2018-10-05] MEDS: Levothyroxine 150 MCG TAB PO SCH (13:47)
--- NOTE | 2018-10-05 16:57 | CP.PCM.PN ---
<Davon Garnica - Last Filed: 10/05/18 17:09> Subjective - Date & Time of Evaluation Date of Evaluation: 10/05/18 Time of Evaluation: 06:25 - Subjective Subjective: Pt seen and examined this morning at bedside. Per nursing, pt complaining of constipation. Objective - Vital Signs/Intake and Output Vital Signs (last 24 hours): Temp Pulse Resp BP Pulse Ox 98.3 F 80 20 133/102 H 94 L 10/05/18 08:16 10/05/18 16:40 10/05/18 08:16 10/05/18 16:40 10/05/18 08:16 Intake and Output: 10/05/18 10/05/18 06:59 18:59 Intake Total 990 Output Total 200 Balance 790 - Medications Medications: Current Medications Albuterol/Ipratropium (Duoneb 3 Mg/0.5 Mg (3 Ml) Ud) 3 ml IH [id number] [facility] Last Admin: 10/05/18 11:18 Dose: 3 ml Amlodipine Besylate (Norvasc) 10 mg PO DAILY [facility] Last Admin: 10/05/18 09:09 Dose: 10 mg Atorvastatin Calcium (Lipitor) 20 mg PO DAILY [facility] Last Admin: 10/05/18 09:09 Dose: 20 mg Heparin Sodium (Porcine) (Heparin) 5,000 units SC Q8 [facility]; Protocol Last Admin: 10/05/18 13:47 Dose: 5,000 units Home Med (Home Med) 1 unit PO DAILY [facility] Last Admin: 10/05/18 10:03 Dose: 1 unit Sodium Chloride (Sodium Chloride 0.9%) 1,000 mls @ 75 mls/hr IV .[id number] [facility] Last Admin: 10/05/18 03:21 Dose: 75 mls/hr Levothyroxine Sodium (Synthroid) 150 mcg PO DAILY [facility] Last Admin: 10/05/18 13:47 Dose: Not Given Multi-Ingredient Cream (Hydrocerin Cream) 1 ea TOP DAILY [facility] Last Admin: 10/05/18 10:03 Dose: 1 applic Nicotine (Nicoderm Cq) 1 patch TD DAILY [facility] Last Admin: 10/05/18 09:09 Dose: 1 patch Senna/Docusate Sodium (Senokot S 50 Mg-8.6 Mg) 1 tab PO DAILY [facility] Last Admin: 10/05/18 13:47 Dose: 1 tab - Labs Labs: 10/05/18 06:05 10/05/18 06:05 - Constitutional Appears: No Acute Distress - Head Exam Head Exam: ATRAUMATIC, NORMOCEPHALIC - Eye Exam Eye Exam: EOMI Additional comments: left eye ptosis, discoloration of iris, blind from pervious injury - ENT Exam ENT Exam: Mucous Membranes Moist - Neck Exam Neck Exam: Full ROM - Respiratory Exam Respiratory Exam: Clear to Ausculation Bilateral. absent: Accessory Muscle Use, Respiratory Distress - Cardiovascular Exam Cardiovascular Exam: RRR, +S1, +S2. absent: Diastolic murmur, Murmur - GI/Abdominal Exam GI & Abdominal Exam: Soft, Normal Bowel Sounds - Extremities Exam Extremities Exam: Full ROM. absent: Calf Tenderness, Pedal Edema - Neurological Exam Neurological Exam: Alert, Awake, Oriented x3 - Psychiatric Exam Psychiatric exam: Suicidal Ideation Additional comments: pt expressed suicidal ideation to nursing before she was supposed to be discharged - Skin Skin Exam: Dry, Normal Color, Warm Assessment and Plan - Assessment and Plan (Free Text) Assessment: Pt is a 57 yo female who is a smoker, with a PMH that includes HIV on HAART, heroin abuse, hypothyroidism, COPD, and hypertension, who presents to the ED with generalized weakness and shortness of breath, which has been going on for one week. Plan: Shortness of breath - mostly resolved, continue to monitor - CXR: No acute cardiopulmonary pathology is evident. Borderline cardiac enlargement - Influenza A/B, S. pneumonia and Legionella: follow up - Sputum, blood, urine cultures: follow up - Duonebs Q4 PRN - Procalcitonin: <0.05 - LDH: 951 Suicidal Ideation - pt expressed suicidal ideation before potentially being discharged - psyc consulted, Dr Calrk HIV - Genvoya 1 tab daily - CD4 count and viral load follow up SAMANTHA - BUN 11 - Cr 1.2 - NS@75 - Continue to monitor Hypothyroidism - TSH 108 - Synthroid 150 Hypokalemia - resolved - K: 3.7, M.2 - Continue to monitor - replete PRN HTN - Amlodipine 10mg PO QD HLD - Lipitor 20mg PO HS Psoriasis - Hydrocerin Tobacco Use - Nicoderm daily - counseled on smoking cessation, 10 mins Ppx - Heparin Pt seen, examined, assessment and plan discussed with Dr Ghanshyam Garnica PGY1 <Ike Morrissey - Last Filed: 10/06/18 07:44> Objective - Vital Signs/Intake and Output Vital Signs (last 24 hours): Temp Pulse Resp BP Pulse Ox 99.3 F 80 18 123/84 98 10/05/18 16:55 10/05/18 18:01 10/05/18 18:01 10/05/18 18:01 10/05/18 18:01 Intake and Output: 10/05/18 10/05/18 06:59 18:59 Intake Total 990 Output Total 200 Balance 790 - Medications Medications: Current Medications Albuterol/Ipratropium (Duoneb 3 Mg/0.5 Mg (3 Ml) Ud) 3 ml IH [id number] [facility] Last Admin: 10/05/18 16:45 Dose: 3 ml Amlodipine Besylate (Norvasc) 10 mg PO DAILY [facility] Last Admin: 10/05/18 09:09 Dose: 10 mg Atorvastatin Calcium (Lipitor) 20 mg PO DAILY [facility] Last Admin: 10/05/18 09:09 Dose: 20 mg Heparin Sodium (Porcine) (Heparin) 5,000 units SC Q8 [facility]; Protocol Last Admin: 10/05/18 13:47 Dose: 5,000 units Home Med (Home Med) 1 unit PO DAILY [facility] Last Admin: 10/05/18 10:03 Dose: 1 unit Sodium Chloride (Sodium Chloride 0.9%) 1,000 mls @ 75 mls/hr IV .[id number] [facility] Last Admin: 10/05/18 03:21 Dose: 75 mls/hr Levothyroxine Sodium (Synthroid) 150 mcg PO DAILY [facility] Last Admin: 10/05/18 13:47 Dose: Not Given Multi-Ingredient Cream (Hydrocerin Cream) 1 ea TOP DAILY [facility] Last Admin: 10/05/18 10:03 Dose: 1 applic Nicotine (Nicoderm Cq) 1 patch TD DAILY [facility] Last Admin: 10/05/18 09:09 Dose: 1 patch Senna/Docusate Sodium (Senokot S 50 Mg-8.6 Mg) 1 tab PO DAILY [facility] Last Admin: 10/05/18 13:47 Dose: 1 tab - Labs Labs: 10/05/18 06:05 10/05/18 06:05 Attending/Attestation - Attestation I have personally seen and examined this patient.: Yes I have fully participated in the care of the patient.: Yes I have reviewed all pertinent clinical information, including history, physical exam and plan: Yes Notes (Text): 10/05/18 18:03 Attending note; Patient seen and examined with resident. Patient is alert and awake. Crying during interview. Complaining of shortness of breath and generalized weakness. Patient is complaining that not able to walk because of bleeding difficulty. Tolerating diet. Denies any nausea, vomiting Complaining of constipation. Patient is a 57-year-old female with a PMH of HIV on HAART, heroin abuse, hypothyroidism, COPD, and hypertension, active smoking, noncompliance with medication who presents to the ED with generalized weakness and shortness of breath. 1. Acute shortness of breath; resolving. secondary to anxiety vs COPD. Continue oxygen, DuoNeb. 2. Depression /anxiety: patient stopped all meds. crying during interview. asking for social media director assistance. 3. HIV; patient stopped taking drugs. due to depression. 4. severe hypothyroidism; started on po synthroid. stopped taking synthroid. 5. Active smoking; smoking cessation is strongly advised. Started on NicoDerm patch. 6. Generalized weakness; physical therapy evaluation requested. No focal deficit noted. The patient was evaluated by social media director to resolve home situation. Patient specifically requested psychiatrist consult. Pending psychiatric consult before discharge.
[2018-10-06] MEDS: Albuterol-Ipratrop 3 mg / 0.5 (3 ml) UD IH SCH ×5 (00:15→14:58)
[2018-10-06] MEDS: Sodium Chloride 0.9% 1,000 ML IV SCH (03:30)
[2018-10-06 07:24] VITALS: RESP 20
[2018-10-06 07:41] LABS: BASO # 0.02 K/mm3 (0.0-2.0); BASO % 0.3 % (0.0-3.0); EOS % 0.3 % (1.5-5.0); GRAN # 3.18 (1.4-6.5); GRAN % 46.4 % (50.0-68.0); HEMOGLOBIN 11.8 g/dL (12.0-16.0); LYMPH # 3.3 (1.2-3.4); LYMPH % 47.8 % (22.0-35.0); MEAN CELL VOLUME 89.6 fl (80.0-105.0); MEAN CORPUSCULAR HEMOGLOBIN 28.5 pg (25.0-35.0); MEAN CORPUSCULAR HGB CONC 31.8 g/dl (31.0-37.0); MEAN PLATELET VOLUME 9.8 fl (7.0-11.0); MONO # 0.4 (0.1-0.6); MONO % 5.2 % (1.0-6.0); RBC 4.14 10^6/uL (3.5-6.1); RED CELL DISTRIBUTION WIDTH 15.6 % (11.5-14.5); WHITE BLOOD COUNT 6.9 10^3/uL (4.5-11.0)
[2018-10-06 08:02] LABS: ALT/SGPT 48 U/L (7-56); AST/SGOT 74 U/L (14-36); BLOOD UREA NITROGEN 9 mg/dL (7-21); CALCIUM 8.9 mg/dL (8.4-10.5); GFR NON-AFRICAN AMERICAN 52
[2018-10-06] MEDS: GENVOYA PO SCH (09:00)
[2018-10-06] MEDS: Hydrocerin(120 gm) TOP SCH (09:00)
[2018-10-06] MEDS: Docusate-Senna 50 mg-8.6 mg Tab PO SCH (09:02)
[2018-10-06] MEDS: Levothyroxine 150 MCG TAB PO SCH (09:08)
[2018-10-06] MEDS ORDERED: Potassium Chloride 20 mEq ER Tab PO ONE (09:34)
--- NOTE | 2018-10-06 09:57 | CP.PCM.PN ---
<Alon Merritt - Last Filed: 10/06/18 13:12> Subjective - Date & Time of Evaluation Date of Evaluation: 10/06/18 Time of Evaluation: 07:15 - Subjective Subjective: ID Progress Note Patient seen and examined. Patient states she still has mild shortness of breath. No fevers overnight. Objective - Vital Signs/Intake and Output Vital Signs (last 24 hours): Temp Pulse Resp BP Pulse Ox 98.0 F 82 20 148/100 H 97 10/06/18 06:00 10/06/18 06:00 10/06/18 06:00 10/06/18 09:02 10/06/18 06:00 Intake and Output: 10/06/18 10/06/18 06:59 18:59 Intake Total 120 Balance 120 - Medications Medications: Current Medications Albuterol/Ipratropium (Duoneb 3 Mg/0.5 Mg (3 Ml) Ud) 3 ml IH [id number] [facility] Last Admin: 10/06/18 07:50 Dose: 3 ml Amlodipine Besylate (Norvasc) 10 mg PO DAILY [facility] Last Admin: 10/06/18 09:02 Dose: 10 mg Atorvastatin Calcium (Lipitor) 20 mg PO DAILY [facility] Last Admin: 10/06/18 09:01 Dose: 20 mg Heparin Sodium (Porcine) (Heparin) 5,000 units SC Q8 [facility]; Protocol Last Admin: 10/06/18 05:23 Dose: Not Given Home Med (Home Med) 1 unit PO DAILY [facility] Last Admin: 10/06/18 09:00 Dose: 1 unit Sodium Chloride (Sodium Chloride 0.9%) 1,000 mls @ 75 mls/hr IV .[id number] [facility] Last Admin: 10/06/18 03:30 Dose: Not Given Levothyroxine Sodium (Synthroid) 150 mcg PO DAILY [facility] Last Admin: 10/06/18 09:08 Dose: 150 mcg Multi-Ingredient Cream (Hydrocerin Cream) 1 ea TOP DAILY [facility] Last Admin: 10/06/18 09:00 Dose: 1 applic Nicotine (Nicoderm Cq) 1 patch TD DAILY [facility] Last Admin: 10/06/18 09:01 Dose: 1 patch Senna/Docusate Sodium (Senokot S 50 Mg-8.6 Mg) 1 tab PO DAILY [facility] Last Admin: 10/06/18 09:02 Dose: 1 tab - Labs Labs: 10/06/18 07:30 10/06/18 07:30 - Constitutional Appears: Non-toxic, No Acute Distress - Head Exam Head Exam: NORMAL INSPECTION, NORMOCEPHALIC - Respiratory Exam Respiratory Exam: Clear to Ausculation Bilateral, NORMAL BREATHING PATTERN - Cardiovascular Exam Cardiovascular Exam: RRR, +S1, +S2 - GI/Abdominal Exam GI & Abdominal Exam: Soft, Normal Bowel Sounds. absent: Tenderness - Extremities Exam Extremities Exam: Normal Inspection. absent: Pedal Edema - Neurological Exam Neurological Exam: Alert, Awake, Oriented x3 - Psychiatric Exam Psychiatric exam: Normal Affect, Normal Mood - Skin Skin Exam: Intact, Normal Color, Warm Assessment and Plan - Assessment and Plan (Free Text) Plan: URI, likely viral etiology Hx of HIV on Genoya Hx of medication noncompliance Hx of hypothyroidism Hx of COPD Hx of HTN Plan Afebrile with no leukocytosis Will continue to monitor off antibiotics at this time Blood culture negative Urine, and sputum cultures pending Legionella negative HIV viral load and CD4 count pending Home HIV medication Genoya restarted Shaina, PGY-3 <Modesto Erwin S - Last Filed: 10/06/18 14:45> Objective - Vital Signs/Intake and Output Vital Signs (last 24 hours): Temp Pulse Resp BP Pulse Ox 98.0 F 82 20 148/100 H 97 10/06/18 06:00 10/06/18 06:00 10/06/18 06:00 10/06/18 09:02 10/06/18 06:00 Intake and Output: 10/06/18 10/06/18 06:59 18:59 Intake Total 120 Balance 120 - Medications Medications: Current Medications Albuterol/Ipratropium (Duoneb 3 Mg/0.5 Mg (3 Ml) Ud) 3 ml IH [id number] [facility] Last Admin: 10/06/18 11:08 Dose: 3 ml Amlodipine Besylate (Norvasc) 10 mg PO DAILY [facility] Last Admin: 10/06/18 09:02 Dose: 10 mg Atorvastatin Calcium (Lipitor) 20 mg PO DAILY [facility] Last Admin: 10/06/18 09:01 Dose: 20 mg Clonidine HCl (Catapres) 0.1 mg PO BID PRN PRN Reason: Agitation Heparin Sodium (Porcine) (Heparin) 5,000 units SC Q8 [facility]; Protocol Last Admin: 10/06/18 13:52 Dose: Not Given Home Med (Home Med) 1 unit PO DAILY [facility] Last Admin: 10/06/18 09:00 Dose: 1 unit Sodium Chloride (Sodium Chloride 0.9%) 1,000 mls @ 75 mls/hr IV .[id number] [facility] Last Admin: 10/06/18 03:30 Dose: Not Given Levothyroxine Sodium (Synthroid) 150 mcg PO DAILY [facility] Last Admin: 10/06/18 09:08 Dose: 150 mcg Multi-Ingredient Cream (Hydrocerin Cream) 1 ea TOP DAILY [facility] Last Admin: 10/06/18 09:00 Dose: 1 applic Nicotine (Nicoderm Cq) 1 patch TD DAILY [facility] Last Admin: 10/06/18 09:01 Dose: 1 patch Senna/Docusate Sodium (Senokot S 50 Mg-8.6 Mg) 1 tab PO DAILY [facility] Last Admin: 10/06/18 09:02 Dose: 1 tab - Labs Labs: 10/06/18 07:30 10/06/18 07:30 Assessment and Plan - Assessment and Plan (Free Text) Plan: Infectious diseases Attending Physician Attestation Patient seen and examined, discussed with medical unit secretary. I have reviewed the patient's history of present illness, past medical, social, personal and family histories, pertinent physical exam findings, course so far in this hospital admission, pertinent laboratory and imaging results. I agree with the above findings, assessment and plan. In addition, continue cART for chronic HIV in fection. Continue supportive therapy for Upper respiratory illness.
--- NOTE | 2018-10-06 11:05 | CON ---
DATE: 10/06/2018 HISTORY OF PRESENT ILLNESS: The patient is a 57-year-old single female, with no prior psychiatric history except for consultation by Dr. Clark on 09/13/2014 for episodes of agitation and irritability, which was given a diagnosis of mood disorder, NOS, positive history of heroin dependency over 10 years as well as cocaine abuse, no current outpatient psychiatric treatments or psychiatric medications, who was admitted to the medical floor after she presented to the ER with complaints of shortness of breath and generalized weakness. Psychiatry was called to evaluate for depression as she reportedly has suicidal thoughts and I mentioned discharge. However, this provider cannot find documentation of this incident in her chart thus far. I met with patient at bedside. She appears quite tired in some physical distress. She reports she has body aches. She is not feeling well, she is sleepy; however, she is well oriented to month and location and aware of current circumstances. Regarding depression, she says she does not know if she is depressed. She is very ill at this time regardless. She denies having any wishes, hopelessness, or suicidal thoughts. She denies any perceptual disturbance. Delusions were not elicited. Her affect is constricted and tired and withdrawn consistent with her medical condition. She is not ; she is not crying as was reported during progress note that I read earlier. Apparently, the patient came in and she has not been taking her medications and she confirmed; however, indicates that she could not find them and she has been ill for the past week as well; however, the patient moved recently. The patient denies not taking her medications because she was trying to kill herself. Right now, she prefers to focus on her physical well being, differs on any further psychiatric evaluation. PAST PSYCHIATRIC HISTORY: The patient denies any history of being admitted to psychiatric inpatient unit though she did see Dr. Clark as a consultation for agitation in 09/2014. Dr. Clark signed off on her case at that time. Recommended the patient receive constant reassurance in education about her medications and treatment plan. The patient denies having any history of suicide attempt when I talked to her today; however, Dr. Clark's consultation indicates that patient reported she overdosed on her medications and also tried to jump out of a window, but was intoxicated at that time. The patient does not recall any psychiatric medication trials and has noted she is not on any psychiatric treatment at this time. SOCIAL HISTORY: The patient has a long history of heroin dependency. She is on heroin on day of admission and her UDS is positive for heroin and methadone. The patient also reports cocaine use. She denies any other drug use. She denies alcohol use. Patient indicates that she was diagnosed with "behavioral disturbances" and required special education classes and never graduated from high school. Dr. Clark also noted that the patient is unable to read. Labs and vitals reviewed. RELEVANT MEDICATIONS: The patient is not on any current psychiatric medications. IMPRESSION: Severe opiate dependency, rule out cocaine abuse versus dependency, likely substance-induced mood disorder. Rule out mood disorder due to general medical condition (please refer to medical consultation for comprehensive list of medical issues). RECOMMENDATIONS: At this time, the patient defers on any further psychiatric evaluation, and she is not considered a danger to herself or others. She consistently denies having any suicidal thoughts, and she is oriented to month, year, location, and circumstances. She does not present as in acute danger to herself or others. She was informed that psychiatry will sign off and she is well aware that she can change her mind and request a followup again at anytime once her medical condition improves if she should change her mind. Jd Ballard MD
[2018-10-06] MEDS ORDERED: Potassium Chloride 40 mEq/30 ml LIQ UD PO ONE (14:00)
--- NOTE | 2018-10-06 15:50 | CP.PCM.DIS ---
<NahunDavon - Last Filed: 10/06/18 15:55> Provider - Provider Date of Admission: 10/04/18 23:48 Attending physician: Ike Morrissey MD Primary care physician: Meng Cabrera MD Consults: 10/05/18 01:00 Consult [Physician Consult] Routine Comment: Consulting Provider: Jose Luis Duarte Consulting Physician: Jose Luis Duarte Reason for Consult: HIV positive, cold-like symptoms 10/05/18 02:17 Inpatient [employer] Core Measures Referral Routine Comment: hx HIV, HTN, anemia, Hpercholesterolemia Physician Instructions: Reason For Exam: admitted with c/o dyspnea, Transition In Care/Readmission Reduction Routine Comment: HX HIV, HTN amemia Physician Instructions: Reason For Exam: admitted with dyspnea, 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 Comment: Physician Instructions: Reason For Exam: discharge planning Reason for Referral: Discharge Planning 10/05/18 15:43 Consult [Physician Consult] Routine Comment: Consulting Provider: Sol Clark Consulting Physician: Sol lCark Reason for Consult: depression Time Spent in preparation of Discharge (in minutes): 40 Diagnosis - Discharge Diagnosis (1) SOB (shortness of breath) Status: Acute Priority: High (2) Suicidal ideation Status: Acute Priority: High (3) HIV (human immunodeficiency virus infection) Status: Chronic Priority: High (4) SAMANTHA (acute kidney injury) Status: Acute Priority: High (5) Hypothyroid Status: Acute (6) HTN (hypertension) Status: Acute (7) HLD (hyperlipidemia) Status: Chronic Priority: High (8) Tobacco abuse Status: Chronic Priority: High Hospital Course - Lab Results Lab Results: Micro Results 10/05/18 03:20 Urine,Clean Catch Urine Culture - Final No Growth (<1,000 CFU/ML) 10/04/18 22:00 Blood Blood Culture - Preliminary NO GROWTH AFTER 24 HOURS 10/04/18 21:30 Blood Blood Culture - Preliminary NO GROWTH AFTER 24 HOURS Most Recent Lab Values WBC 6.9 10^3/uL (4.5-11.0) 10/06/18 07:30 RBC 4.14 10^6/uL (3.5-6.1) 10/06/18 07:30 Hgb 11.8 g/dL (12.0-16.0) L 10/06/18 07:30 Hct 37.1 % (36.0-48.0) 10/06/18 07:30 MCV 89.6 fl (80.0-105.0) 10/06/18 07:30 MCH 28.5 pg (25.0-35.0) 10/06/18 07:30 MCHC 31.8 g/dl (31.0-37.0) 10/06/18 07:30 RDW 15.6 % (11.5-14.5) H 10/06/18 07:30 Plt Count 140 10^3/uL (120.0-450.0) 10/06/18 07:30 MPV 9.8 fl (7.0-11.0) 10/06/18 07:30 Gran % 46.4 % (50.0-68.0) L 10/06/18 07:30 Lymph % (Auto) 47.8 % (22.0-35.0) H 10/06/18 07:30 [place] % (Auto) 5.2 % (1.0-6.0) 10/06/18 07:30 Eos % (Auto) 0.3 % (1.5-5.0) L 10/06/18 07:30 Baso % (Auto) 0.3 % (0.0-3.0) 10/06/18 07:30 Gran # 3.18 (1.4-6.5) 10/06/18 07:30 Lymph # (Auto) 3.3 (1.2-3.4) 10/06/18 07:30 [place] # (Auto) 0.4 (0.1-0.6) 10/06/18 07:30 Eos # (Auto) 0.0 (0.0-0.7) 10/06/18 07:30 Baso # (Auto) 0.02 K/mm3 (0.0-2.0) 10/06/18 07:30 pO2 45 mm/Hg (30-55) 10/04/18 22:00 VBG pH 7.38 (7.32-7.43) 10/04/18 22:00 VBG pCO2 61.0 (40-60) H 10/04/18 22:00 VBG HCO3 36.1 mmol/l (21-28) H 10/04/18 22:00 VBG Total CO2 38.0 mmol.L (22-28) H 10/04/18 22:00 VBG O2 Sat (Calc) 87.1 % (40-65) H 10/04/18 22:00 VBG Base Excess 8.7 mmol/L (0.0-2.0) H 10/04/18 22:00 VBG Potassium 2.6 mmol/L (3.6-5.2) L 10/04/18 22:00 Sodium 142.0 mmol/L (132-148) 10/04/18 22:00 Chloride 103.0 mmol/L (98-107) 10/04/18 22:00 Glucose 115 mg/dl (65-105) H 10/04/18 22:00 Lactate 1.6 mmol/L (0.7-2.1) 10/04/18 22:00 FiO2 21.0 % 10/04/18 22:00 Sodium 144 mmol/L (132-148) 10/06/18 07:30 Potassium 3.0 mmol/L (3.6-5.0) L 10/06/18 07:30 Chloride 107 mmol/L (98-107) 10/06/18 07:30 Carbon Dioxide 30 mmol/L (21-33) 10/06/18 07:30 Anion Gap 10 (10-20) 10/06/18 07:30 BUN 9 mg/dL (7-21) 10/06/18 07:30 Creatinine 1.1 mg/dl (0.7-1.2) 10/06/18 07:30 Est GFR ( Amer) > 60 10/06/18 07:30 Est GFR (Non-Af Amer) 52 10/06/18 07:30 Random Glucose 99 mg/dL (70-110) 10/06/18 07:30 Calcium 8.9 mg/dL (8.4-10.5) 10/06/18 07:30 Phosphorus 2.7 mg/dL (2.5-4.5) 10/06/18 07:30 Magnesium 1.9 mg/dL (1.7-2.2) 10/06/18 07:30 Total Bilirubin 0.4 mg/dL (0.2-1.3) 10/06/18 07:30 AST 74 U/L (14-36) H 10/06/18 07:30 ALT 48 U/L (7-56) 10/06/18 07:30 Alkaline Phosphatase 88 U/L (38-126) 10/06/18 07:30 Lactate Dehydrogenase 951 U/L (333-699) H 10/05/18 06:05 Troponin I < 0.01 ng/mL D 10/05/18 11:00 Total Protein 7.9 g/dL (5.8-8.3) 10/06/18 07:30 Albumin 4.0 g/dL (3.0-4.8) 10/06/18 07:30 Globulin 3.9 gm/dL 10/06/18 07:30 Albumin/Globulin Ratio 1.0 (1.1-1.8) L 10/06/18 07:30 Procalcitonin < 0.05 NG/ML (0.19-0.49) L 10/05/18 06:05 TSH 3rd Generation 108.00 mIU/mL (0.46-4.68) H 10/05/18 06:05 Venous Blood Potassium 2.6 mmol/L (3.6-5.2) L 10/04/18 22:00 Urine Color Yellow (YELLOW) 10/04/18 22:33 Urine Appearance Clear (CLEAR) 10/04/18 22:33 Urine pH 6.5 (4.7-8.0) 10/04/18 22:33 Ur Specific [place] 1.025 (1.005-1.035) 10/04/18 22:33 Urine Protein 30 mg/dL (<30 mg/dL) H 10/04/18 22:33 Urine Glucose (UA) Negative mg/dL (NEGATIVE) 10/04/18 22:33 Urine Ketones Negative mg/dL (NEGATIVE) 10/04/18 22:33 Urine Blood Trace-intact (NEGATIVE) H 10/04/18 22:33 Urine Nitrate Negative (NEGATIVE) 10/04/18 22:33 Urine Bilirubin Negative (NEGATIVE) 10/04/18 22:33 Urine Urobilinogen 0.2 E.U./dL (<1 E.U./dL) 10/04/18 22:33 Ur Leukocyte Esterase Negative Aravind/uL (NEGATIVE) 10/04/18 22:33 Urine RBC 2 - 5 /hpf (0-2) H 10/04/18 22:33 Urine WBC 1 - 3 /hpf (0-6) 10/04/18 22:33 Ur Epithelial Cells 10 - 12 /hpf (0-5) H 10/04/18 22:33 Urine Bacteria Mod /hpf (NONE) 10/04/18 22:33 Urine Other Uyeast /hpf 10/04/18 22:33 Urine Opiates Screen Positive (NEGATIVE) H 10/04/18 22:28 Urine Methadone Screen Positive (NEGATIVE) H 10/04/18 22:28 Ur Barbiturates Screen Negative (NEGATIVE) 10/04/18 22:28 Ur Phencyclidine Scrn Negative (NEGATIVE) 10/04/18 22:28 Ur Amphetamines Screen Negative (NEGATIVE) 10/04/18 22:28 U Benzodiazepines Scrn Negative (NEGATIVE) 10/04/18 22:28 U Oth Cocaine Metabols Negative (NEGATIVE) 10/04/18 22:28 U Cannabinoids Screen Negative (NEGATIVE) 10/04/18 22:28 Ur L.pneumophila Ag Negative (NEGATIVE) 10/05/18 03:20 - Hospital Course Hospital Course: Upon Arrival Pt is a 57 yo female smoker, whose PMH includes HIV on HAART, drug abuse, hypothyroidism, COPD, and hypertension, presents to the emergency department with generalized weakness and shortness of breath, for one week. Patient states that she has had a runny nose and a non productive cough for one week. She also complains of generalized weakness the same time her other symptoms started. She states that her sister came to visit her from out of town for one week and noticed that her sister had a cold. Patient has been feeling ill for 1 week and decided to come to the hospital. Hospitalization Pt was treated for SOB. Pt was advised to follow up for her HIV as an out pt. Pt had an SAMANTHA while she was here which was treated appropriately. Discharge Please follow up with primary care physician Dr Addie Garcia within the next 3- 5 days. Please follow up with infectious disease physician Dr Celaya within the 1 week. Please resume all home medications and take as prescribed. If you experience newly concerning or worsening symptoms, please present to the nearest emergency department. 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 absent: Accessory Muscle Use, Respiratory Distress - Cardiovascular Exam Cardiovascular Exam: RRR, +S1, +S2 - GI/Abdominal Exam GI & Abdominal Exam: Normal Bowel Sounds, Unremarkable - Extremities Exam Extremities exam: full ROM, pedal pulses present - Neurological Exam Neurological exam: Alert, Oriented x3 - Psychiatric Exam Psychiatric exam: Normal Affect, Normal Mood - Skin Skin Exam: Dry, Normal Color, Warm Discharge Plan - Discharge Medications Prescriptions: Docusate Sodium/Sennosides A [Senokot S 50 MG-8.6 MG] 1 tab PO DAILY #10 tab - Follow Up Plan Condition: STABLE Disposition: DISCHARGE TO [facility] Instructions: Shortness of Breath (Dyspnea) (DC), Weakness (GEN) Additional Instructions: 1. Please follow up with your primary care physician Dr Addie Garcia within the next 3-5 days 2. Please follow up with your infectious disease physician Dr Celaya within the 1 week 3. Please resume all home medications and take as prescribed. 4. If you experience newly concerning or worsening symptoms, please present to the nearest emergency department. Referrals: Meng Cabrera MD [Primary Care Provider] - <Ike Morrissey - Last Filed: 10/07/18 19:01> Provider - Provider Date of Admission: 10/04/18 23:48 Attending physician: Ike Morrissey MD Primary care physician: Meng Cabrera MD Consults: 10/05/18 01:00 Consult [Physician Consult] Routine Comment: Consulting Provider: Jose Luis Duarte Consulting Physician: Jose Luis Duarte Reason for Consult: HIV positive, cold-like symptoms 10/05/18 02:17 Inpatient [employer] Core Measures Referral Routine Comment: hx HIV, HTN, anemia, Hpercholesterolemia Physician Instructions: Reason For Exam: admitted with c/o dyspnea, Transition In Care/Readmission Reduction Routine Comment: HX HIV, HTN amemia Physician Instructions: Reason For Exam: admitted with dyspnea, 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 Comment: Physician Instructions: Reason For Exam: discharge planning Reason for Referral: Discharge Planning 10/05/18 15:43 Consult [Physician Consult] Routine Comment: Consulting Provider: Sol Clark Consulting Physician: Sol Clark Reason for Consult: depression Hospital Course - Lab Results Lab Results: Micro Results 10/04/18 22:00 Blood Blood Culture - Preliminary NO GROWTH AFTER 48 HOURS 10/04/18 21:30 Blood Blood Culture - Preliminary NO GROWTH AFTER 48 HOURS 10/05/18 03:20 Urine,Clean Catch Urine Culture - Final No Growth (<1,000 CFU/ML) Most Recent Lab Values WBC 6.9 10^3/uL (4.5-11.0) 10/06/18 07:30 RBC 4.14 10^6/uL (3.5-6.1) 10/06/18 07:30 Hgb 11.8 g/dL (12.0-16.0) L 10/06/18 07:30 Hct 37.1 % (36.0-48.0) 10/06/18 07:30 MCV 89.6 fl (80.0-105.0) 10/06/18 07:30 MCH 28.5 pg (25.0-35.0) 10/06/18 07:30 MCHC 31.8 g/dl (31.0-37.0) 10/06/18 07:30 RDW 15.6 % (11.5-14.5) H 10/06/18 07:30 Plt Count 140 10^3/uL (120.0-450.0) 10/06/18 07:30 MPV 9.8 fl (7.0-11.0) 10/06/18 07:30 Gran % 46.4 % (50.0-68.0) L 10/06/18 07:30 Lymph % (Auto) 47.8 % (22.0-35.0) H 10/06/18 07:30 [place] % (Auto) 5.2 % (1.0-6.0) 10/06/18 07:30 Eos % (Auto) 0.3 % (1.5-5.0) L 10/06/18 07:30 Baso % (Auto) 0.3 % (0.0-3.0) 10/06/18 07:30 Gran # 3.18 (1.4-6.5) 10/06/18 07:30 Lymph # (Auto) 3.3 (1.2-3.4) 10/06/18 07:30 [place] # (Auto) 0.4 (0.1-0.6) 10/06/18 07:30 Eos # (Auto) 0.0 (0.0-0.7) 10/06/18 07:30 Baso # (Auto) 0.02 K/mm3 (0.0-2.0) 10/06/18 07:30 pO2 45 mm/Hg (30-55) 10/04/18 22:00 VBG pH 7.38 (7.32-7.43) 10/04/18 22:00 VBG pCO2 61.0 (40-60) H 10/04/18 22:00 VBG HCO3 36.1 mmol/l (21-28) H 10/04/18 22:00 VBG Total CO2 38.0 mmol.L (22-28) H 10/04/18 22:00 VBG O2 Sat (Calc) 87.1 % (40-65) H 10/04/18 22:00 VBG Base Excess 8.7 mmol/L (0.0-2.0) H 10/04/18 22:00 VBG Potassium 2.6 mmol/L (3.6-5.2) L 10/04/18 22:00 Sodium 142.0 mmol/L (132-148) 10/04/18 22:00 Chloride 103.0 mmol/L (98-107) 10/04/18 22:00 Glucose 115 mg/dl (65-105) H 10/04/18 22:00 Lactate 1.6 mmol/L (0.7-2.1) 10/04/18 22:00 FiO2 21.0 % 10/04/18 22:00 Sodium 144 mmol/L (132-148) 10/06/18 07:30 Potassium 3.0 mmol/L (3.6-5.0) L 10/06/18 07:30 Chloride 107 mmol/L (98-107) 10/06/18 07:30 Carbon Dioxide 30 mmol/L (21-33) 10/06/18 07:30 Anion Gap 10 (10-20) 10/06/18 07:30 BUN 9 mg/dL (7-21) 10/06/18 07:30 Creatinine 1.1 mg/dl (0.7-1.2) 10/06/18 07:30 Est GFR ( Amer) > 60 10/06/18 07:30 Est GFR (Non-Af Amer) 52 10/06/18 07:30 Random Glucose 99 mg/dL (70-110) 10/06/18 07:30 Calcium 8.9 mg/dL (8.4-10.5) 10/06/18 07:30 Phosphorus 2.7 mg/dL (2.5-4.5) 10/06/18 07:30 Magnesium 1.9 mg/dL (1.7-2.2) 10/06/18 07:30 Total Bilirubin 0.4 mg/dL (0.2-1.3) 10/06/18 07:30 AST 74 U/L (14-36) H 10/06/18 07:30 ALT 48 U/L (7-56) 10/06/18 07:30 Alkaline Phosphatase 88 U/L (38-126) 10/06/18 07:30 Lactate Dehydrogenase 951 U/L (333-699) H 10/05/18 06:05 Troponin I < 0.01 ng/mL D 10/05/18 11:00 Total Protein 7.9 g/dL (5.8-8.3) 10/06/18 07:30 Albumin 4.0 g/dL (3.0-4.8) 10/06/18 07:30 Globulin 3.9 gm/dL 10/06/18 07:30 Albumin/Globulin Ratio 1.0 (1.1-1.8) L 10/06/18 07:30 Procalcitonin < 0.05 NG/ML (0.19-0.49) L 10/05/18 06:05 TSH 3rd Generation 108.00 mIU/mL (0.46-4.68) H 10/05/18 06:05 Venous Blood Potassium 2.6 mmol/L (3.6-5.2) L 10/04/18 22:00 Urine Color Yellow (YELLOW) 10/04/18 22:33 Urine Appearance Clear (CLEAR) 10/04/18 22:33 Urine pH 6.5 (4.7-8.0) 10/04/18 22:33 Ur Specific [place] 1.025 (1.005-1.035) 10/04/18 22:33 Urine Protein 30 mg/dL (<30 mg/dL) H 10/04/18 22:33 Urine Glucose (UA) Negative mg/dL (NEGATIVE) 10/04/18 22:33 Urine Ketones Negative mg/dL (NEGATIVE) 10/04/18 22:33 Urine Blood Trace-intact (NEGATIVE) H 10/04/18 22:33 Urine Nitrate Negative (NEGATIVE) 10/04/18 22:33 Urine Bilirubin Negative (NEGATIVE) 10/04/18 22:33 Urine Urobilinogen 0.2 E.U./dL (<1 E.U./dL) 10/04/18 22:33 Ur Leukocyte Esterase Negative Aravind/uL (NEGATIVE) 10/04/18 22:33 Urine RBC 2 - 5 /hpf (0-2) H 10/04/18 22:33 Urine WBC 1 - 3 /hpf (0-6) 10/04/18 22:33 Ur Epithelial Cells 10 - 12 /hpf (0-5) H 10/04/18 22:33 Urine Bacteria Mod /hpf (NONE) 10/04/18 22:33 Urine Other Uyeast /hpf 10/04/18 22:33 Urine Opiates Screen Positive (NEGATIVE) H 10/04/18 22:28 Urine Methadone Screen Positive (NEGATIVE) H 10/04/18 22:28 Ur Barbiturates Screen Negative (NEGATIVE) 10/04/18 22:28 Ur Phencyclidine Scrn Negative (NEGATIVE) 10/04/18 22:28 Ur Amphetamines Screen Negative (NEGATIVE) 10/04/18 22:28 U Benzodiazepines Scrn Negative (NEGATIVE) 10/04/18 22:28 U Oth Cocaine Metabols Negative (NEGATIVE) 10/04/18 22:28 U Cannabinoids Screen Negative (NEGATIVE) 10/04/18 22:28 Absolute Lymphs (Flow) 2391 Cells/mcL (850-3900) 10/05/18 05:00 % CD3 Cells 81 Percent (57-85) 10/05/18 05:00 Absolute CD3 Count 1952 Cells/mcL (840-3060) 10/05/18 05:00 % CD3-/CD16+/CD56+ 10 Percent (4-25) 10/05/18 05:00 % CD4 Cells 19 Percent (30-61) L 10/05/18 05:00 Absolute CD4 Count 462 Cells/mcL (490-1740) L 10/05/18 05:00 T-Help/Suppress Ratio 0.31 Ratio (0.86-5.00) L 10/05/18 05:00 % CD8 Cells 62 Percent (12-42) H 10/05/18 05:00 Absolute CD8 Count 1512 Cells/mcL (180-1170) H 10/05/18 05:00 Absolute CD16/CD56 Count 245 Cells/mcL (70-760) 10/05/18 05:00 % CD19 Cells 8 Percent (6-29) 10/05/18 05:00 Absolute CD19 Count 195 Cells/mcL (110-660) 10/05/18 05:00 HIV-1 RNA Qnt (RT-PCR) 5.46 (Not Detected) H 10/05/18 06:05 Ur L.pneumophila Ag Negative (NEGATIVE) 10/05/18 03:20 Attending/Attestation - Attestation I have personally seen and examined this patient.: Yes I have fully participated in the care of the patient.: Yes I have reviewed all pertinent clinical information, including history, physical exam and plan: Yes Notes (Text): 10/07/18 18:59 Attending note; Patient seen and examined with resident. Patient is alert and awake. Shortness of breath improved. Tolerating diet. Denies any nausea, vomiting. Complaining of constipation. Patient is a 57-year-old female with a PMH of HIV on HAART, heroin abuse, hypothyroidism, COPD, and hypertension, active smoking, noncompliance with medication who presents to the ED with generalized weakness and shortness of breath. 1. Acute shortness of breath; resolving. secondary to anxiety vs COPD. Continue oxygen, DuoNeb. 2. Depression /anxiety: Psychiatric evaluation appreciated. Patient agreed to getting patient psychiatric assessment. 3. HIV; patient stopped taking drugs. due to depression. 4. severe hypothyroidism; started on po synthroid. stopped taking synthroid. 5. Active smoking; smoking cessation is strongly advised. Started on NicoDerm patch. 6. Generalized weakness; patient is ambulating as per nursing staff. Patient refused PT evaluation today. No focal deficit noted. Transfer the patient to psychiatric floor today. Upon discharge patient will follow up with PMD DR. Cabrera.
[2018-10-06 16:11] VITALS: BP 168/96; PULSE 85; TEMP 98.9; O2SAT 98
[2018-10-07 18:20] LABS: % CD4 (T HELPER CELL) 19 Percent (30-61); % CD8 (SUPPRESSOR T CELL) 62 Percent (12-42); ABSOLUTE CD19 CELLS 195 Cells/mcL (110-660); ABSOLUTE CD3 CELLS 1952 Cells/mcL (840-3060); ABSOLUTE CD4 CELLS 462 Cells/mcL (490-1740); ABSOLUTE CD8 CELLS 1512 Cells/mcL (180-1170); ABSOLUTE LYMPHOCYTES 2391 Cells/mcL (850-3900); HELPER/SUPPRESSOR RATIO 0.31 Ratio (0.86-5.00)
[2018-10-07 20:17] LABS: SOURCE SERUM
== END 2018-10-06 15:57 ==
LOC: ED 20:50 → INTOOBSV 23:48 → ERH 23:48 → 3RNO 10-05 01:11
PROVIDERS: ADMIT Internal Medicine; ATTEND Internal Medicine
DX: R06.02 Shortness of breath (principal); R53.1 Weakness; B20 Human immunodeficiency virus [HIV] disease; E03.9 Hypothyroidism, unspecified; E87.6 Hypokalemia; F11.20 Opioid dependence, uncomplicated; F14.90 Cocaine use, unspecified, uncomplicated; N17.9 Acute kidney failure, unspecified; E86.0 Dehydration; H54.62 Unqualified visual loss, left eye, normal vision right eye; J44.9 Chronic obstructive pulmonary disease, unspecified; I10 Essential (primary) hypertension; F41.9 Anxiety disorder, unspecified; F32.9 Major depressive disorder, single episode, unspecified; T50.996A Underdosing of other drugs, medicaments and biological substances, initial encounter; R45.851 Suicidal ideations; E78.5 Hyperlipidemia, unspecified; F17.200 Nicotine dependence, unspecified, uncomplicated; L40.9 Psoriasis, unspecified; K59.00 Constipation, unspecified; Z91.128 Patient's intentional underdosing of medication regimen for other reason; Z91.14 Patient's other noncompliance with medication regimen
CPT/HCPCS: 36415; 71045; 80053; 80324; 80345; 80346; 80349; 80353; 80358; 80361; 81001; 82803; 83615; 83735; 83992; 84100; 84145; 84443; 84484; 85025; 86355; 86357; 86359; 86360; 86403; 86710; 87040; 87086; 87449; 87536; 93005; 94640; 96361; 96372; 96374; 96375; 99285; G0378; J0360; J1644; J2060; J2405; J3480; J7030

== ENCOUNTER 2018-10-06 15:57 | Inpatient (IN) | payer OTHER ==
[2018-10-05 02:18] VITALS: BMI 28.5
[2018-10-06] MEDS ORDERED: Alum-Mag Hydrox-Simethicone Susp (30 mL) PO PRN (17:18)
[2018-10-06] MEDS: Haloperidol Lactate 2 mg/ml Liquid PO PRN (18:25)
--- NOTE | 2018-10-06 22:11 | PCM.BM ---
<KeyvnFroy - Last Filed: 10/06/18 22:08> Treatment Plan Problems - Problems identified on initial assessmt Feelings of Worthlessness Date Initiated: 10/06/18 Time Initiated: 17:00 Assessment reference: NA Status: Active Priority: 1 Hopelessness/Helplessness Date Initiated: 10/06/18 Time Initiated: 17:00 Assessment reference: NA Status: Active Priority: 2 Ineffective Coping Date Initiated: 10/06/18 Time Initiated: 17:00 Assessment reference: NA Status: Active Priority: 3 Treatment assets and liabiliti Patient Assests: ADL independent Patient Liabilities: financial problems, poor support system, substance abuse - Milieu Protocol Maintain good personal hygiene: daily Encourage regular showers, every shift Remind patient to perform daily oral care, every shift Assist patient to perform ADL's Maintain personal safety: every shift Educate patient to report safety concerns to staff, every shift Monitor environment for contraband/sharps Medication safety: Monitor for expected outcome, potential side effects: every shift, Assess barriers to learning: every shift, Assess readiness for medication education: every shift Family Contact Family involvement: Family/SO is involved Family contact: Patient agrees to contact Discharge/Continuing Care - Education Needs Education Needs: Patient Medication, Patient Diagnosis/Disease Process, Patient Coping Skills, Patient Anger Management skills, Patient Placement options, Pat ie Community resources, Patient Activities of Daily Living, Patient Pain, Patient Nutrition, Patient Uses of Medical Equipment, Patient Health Practices/Safety, Patient Personal Hygiene/Grooming, Patient Aftercare Safety Plan <Sol Clark - Last Filed: 10/07/18 09:16> - Diagnosis (1) MDD (major depressive disorder) Status: Acute Interventions: 10/07/18 09:16 Psychoeducation Psychopharmacology/adjustment of medications as needed/ monitoring possible side effects Evaluate pt on daily basis Compliance with medications and follow up appointments Suicide and homicide risk assessment and prevention Relapse prevention Reduction of symptoms Improve functional status Family involvement As outpatient: cognitive behavioral therapy (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
[2018-10-07 08:13] LABS: ALBUMIN 4.1 g/dL (3.0-4.8); CALCIUM 9.1 mg/dL (8.4-10.5)
[2018-10-07] MEDS ORDERED: TENOFOVIR ALAFENAMIDE PO SCH (08:45)
[2018-10-07] MEDS ORDERED: ELVITEGRAVIR PO SCH (08:45)
[2018-10-07] MEDS ORDERED: COBICISTAT PO SCH (08:45)
[2018-10-07] MEDS ORDERED: EMTRICITABINE PO SCH (08:45)
[2018-10-07] MEDS: Potassium Chloride 40 mEq/30 ml LIQ UD PO SCH ×3 (08:55→22:48)
[2018-10-07] MEDS: Levothyroxine 200 MCG TAB PO SCH (09:40)
[2018-10-07] MEDS: Docusate-Senna 50 mg-8.6 mg Tab PO SCH (09:50)
--- NOTE | 2018-10-07 11:48 | CP.PCM.CON ---
<Tone Bates - Last Filed: 10/07/18 14:17> History of Present Illness - History of Present Illness History of Present Illness: 57 year old female with PMHx of HIV on HAART, drug abuse, hypothyroidism, COPD, and hypertension, presented to the emergency department with generalized weakness and shortness of breath for one week. Pt was recently treated on medicine floors for shortness of breath with O2 & duoneb treatments. Pt was also found to have marked hypothyroidism and was treated appropriately. Pt subsequently transferred to psychiatry unit for MDD, mood disorder. Pt was seen this am in psychiatry unit. She was walking and reported dizziness, sat down on wheel chair. Otherwise denied 12 point ROS PMH: HIV on HAART (last known CD4 count: 1254, Viral load:<1.3 on 03/30/2017), Left eye blindness, drug abuse, hypothyroidism, COPD not on home O2, HTN, ane ade, HLD. PSH: 4 c-sections, left ankle surgery, uterine biopsy FH: Mother had diabetes and heart disease SH: 10 cig/day for 40 yrs, heroine and cocaine use denied alcohol use. All: NKDA Meds: Synthroid 200 mcg daily, Benazepril 10 mg daily, Lipitor 20 mg HS, Norvasc 10 mg daily, Genvoya 1 tab daily PMD: Dr. Addie Garcia ID: Dr. Raquel Celaya Review of Systems - Review of Systems Review of Systems: per HPI Past Patient History - Infectious Disease Hx of Infectious Diseases: None - Tetanus Immunizations Tetanus Immunization: Unknown - Past Medical History & Family History Past Medical History?: Yes - Past Social History Smoking Status: Heavy Smoker > 10 Cigarettes Daily - CARDIAC Hx Cardiac Disorders: Yes Hx Hypertension: Yes - PULMONARY Hx Respiratory Disorders: Yes Hx Chronic Obstructive Pulmonary Disease (COPD): Yes - NEUROLOGICAL Hx Neurological Disorder: No - HEENT Hx HEENT Problems: Yes Hx Cataracts: Yes Other/Comment: BLIND L EYE - RENAL Hx Chronic Kidney Disease: No - ENDOCRINE/METABOLIC Hx Endocrine Disorders: Yes Hx Hypothyroidism: Yes - HEMATOLOGICAL/ONCOLOGICAL Hx Blood Disorders: Yes Hx Anemia: Yes - INTEGUMENTARY Hx Dermatological Problems: No - MUSCULOSKELETAL/RHEUMATOLOGICAL Hx Musculoskeletal Disorders: Yes Hx Herniated Disk: Yes (lower back) Hx Unsteady Gait: Yes - GASTROINTESTINAL Hx Gastrointestinal Disorders: Yes Hx Constipation: Yes Hx Gastroesophageal Reflux: Yes - GENITOURINARY/GYNECOLOGICAL Hx Genitourinary Disorders: No - PSYCHIATRIC Hx Anxiety: Yes Hx Depression: Yes Hx Substance Use: Yes - SURGICAL HISTORY Hx Orthopedic Surgery: Yes Other/Comment: Uterine biopsy - ANESTHESIA Hx Anesthesia: Yes Hx Anesthesia Reactions: No Hx Malignant Hyperthermia: No Meds Allergies/Adverse Reactions: Allergies Allergy/AdvReac Type Severity Reaction Status Date / Time No Known Allergies Allergy Verified 10/06/18 21:28 - Medications Medications: Current Medications Acetaminophen (Tylenol 325mg Tab) 650 mg PO Q6H PRN PRN Reason: Pain, Mild (1-3) Al Hydrox/Mg Hydrox/Simethicone (Maalox Plus 30 Ml) 30 ml PO DAILY PRN PRN Reason: Indigestion / Heartburn Amlodipine Besylate (Norvasc) 10 mg PO DAILY COUNT INCLUDES [facility] Atorvastatin Calcium (Lipitor) 20 mg PO DAILY COUNT INCLUDES THE [facility] Clonidine HCl (Catapres) 0.1 mg PO Q12H PRN PRN Reason: Heroin Withdrawal Last Admin: 10/06/18 18:13 Dose: 0.1 mg Fluoxetine HCl (Prozac) 20 mg PO DAILY COUNT INCLUDES [facility] Gabapentin (Neurontin) 300 mg PO TID COUNT INCLUDES THE [facility]; Protocol Haloperidol Lactate (Haldol) 3 mg PO Q6H PRN; Protocol PRN Reason: Agitation Last Admin: 10/06/18 18:25 Dose: 3 mg Haloperidol Lactate (Haldol) 3 mg IM Q6H PRN; Protocol PRN Reason: Severe Agitation Home Med (Home Med) 1 unit PO DAILY COUNT INCLUDES [facility] Levothyroxine Sodium (Synthroid) 200 mcg PO DAILY COUNT INCLUDES THE [facility] Lorazepam (Ativan) 1 mg PO Q6H PRN; Protocol PRN Reason: Anxiety Last Admin: 10/06/18 18:13 Dose: 1 mg Lorazepam (Ativan) 1 mg IM Q6H PRN; Protocol PRN Reason: Anxiety/Agitation Magnesium Hydroxide (Milk Of Magnesia) 30 ml PO DAILY PRN PRN Reason: Constipation Nicotine (Nicoderm Cq) 1 patch TD DAILY COUNT INCLUDES [facility] Potassium Chloride (Potassium Chloride Oral Soln) 40 meq PO Q6H COUNT INCLUDES THE [facility] Stop: 10/08/18 02:46 Senna/Docusate Sodium (Senokot S 50 Mg-8.6 Mg) 1 tab PO DAILY COUNT INCLUDES [facility] Tramadol HCl (Ultram) 50 mg PO Q6H PRN PRN Reason: Pain, moderate (4-7) Last Admin: 10/06/18 18:13 Dose: 50 mg Zaleplon (Sonata) 5 mg PO HS PRN PRN Reason: Insomnia Physical Exam - Constitutional Appears: Well, Non-toxic, No Acute Distress - Head Exam Head Exam: NORMAL INSPECTION, NORMOCEPHALIC - Eye Exam Eye Exam: EOMI, Normal appearance - ENT Exam ENT Exam: Mucous Membranes Moist, Normal Exam - Neck Exam Neck exam: Positive for: Normal Inspection - Respiratory Exam Respiratory Exam: Clear to Auscultation Bilateral, NORMAL BREATHING PATTERN - Cardiovascular Exam Cardiovascular Exam: REGULAR RHYTHM, +S1, +S2 - GI/Abdominal Exam GI & Abdominal Exam: Normal Bowel Sounds, Soft. absent: Tenderness - Extremities Exam Extremities exam: Positive for: normal inspection. Negative for: calf tenderness - Back Exam Back exam: NORMAL INSPECTION - Neurological Exam Neurological exam: Alert, Oriented x3 - Psychiatric Exam Psychiatric exam: Normal Affect, Normal Mood - Skin Skin Exam: Dry, Intact, Warm Results - Vital Signs Recent Vital Signs: Last Vital Signs Temp Pulse 79 10/06/18 18:13 Resp BP 164/106 H 10/06/18 18:13 Pulse Ox - Labs Result Diagrams: 10/07/18 07:30 Labs: Laboratory Results - last 24 hr 10/07/18 10/07/18 07:30 07:30 Sodium 142 Potassium 3.0 L Chloride 105 Carbon Dioxide 31 Anion Gap 9 L BUN 8 Creatinine 1.3 H Est GFR ( Amer) 51 Est GFR (Non-Af Amer) 43 Random Glucose 92 Fasting Glucose 92 Calcium 9.1 Total Bilirubin 0.9 AST 69 H ALT 45 Alkaline Phosphatase 92 Total Protein 8.2 Albumin 4.1 Globulin 4.1 Albumin/Globulin Ratio 1.0 L Triglycerides 250 H Cholesterol 362 H LDL Cholesterol Direct 195 H HDL Cholesterol 40 TSH 3rd Generation 171.00 H Assessment & Plan - Assessment and Plan (Free Text) Assessment: 57-year-old female with a PMH of HIV on HAART, heroin abuse, hypothyroidism, COPD, and hypertension, active smoking, noncompliance with medication who presents to the ED with generalized weakness and shortness of breath. Pt was treated for SOB and transferred to psychiatry. Medicine team consulted for medical evaluation and treatment Plan: Hypokalemia replete K, continue to monitor Hypothyroidism Most recent TSH markedly elevated. continue home levothyroxine Hypertension conitnue home amlodipine Hyperlipidemia continue home atorvastatin HIV f/u Ag/Ab ID following, appreciate recs Tobacco use disorder continue nicotine patch MDD/mood disorder Continue psychiatric medications per primary team Case seen, examined and discussed with attending physician, Dr. Ghanshyam Bates PGY1 <Ike Morrissey - Last Filed: 10/07/18 19:06> Meds - Medications Medications: Current Medications Acetaminophen (Tylenol 325mg Tab) 650 mg PO Q6H PRN PRN Reason: Pain, Mild (1-3) Al Hydrox/Mg Hydrox/Simethicone (Maalox Plus 30 Ml) 30 ml PO DAILY PRN PRN Reason: Indigestion / Heartburn Amlodipine Besylate (Norvasc) 10 mg PO DAILY COUNT INCLUDES [facility] Last Admin: 10/07/18 09:40 Dose: 10 mg Atorvastatin Calcium (Lipitor) 20 mg PO DAILY COUNT INCLUDES [facility] Last Admin: 10/07/18 08:55 Dose: 20 mg Clonidine HCl (Catapres) 0.1 mg PO Q12H PRN PRN Reason: Heroin Withdrawal Last Admin: 10/06/18 18:13 Dose: 0.1 mg Fluoxetine HCl (Prozac) 20 mg PO DAILY COUNT INCLUDES [facility] Last Admin: 10/07/18 13:10 Dose: 20 mg Gabapentin (Neurontin) 300 mg PO TID COUNT INCLUDES [facility]; Protocol Last Admin: 10/07/18 17:06 Dose: 300 mg Haloperidol Lactate (Haldol) 3 mg PO Q6H PRN; Protocol PRN Reason: Agitation Last Admin: 10/06/18 18:25 Dose: 3 mg Haloperidol Lactate (Haldol) 3 mg IM Q6H PRN; Protocol PRN Reason: Severe Agitation Home Med (Home Med) 1 unit PO DAILY COUNT INCLUDES [facility] Last Admin: 10/07/18 08:55 Dose: 1 unit Levothyroxine Sodium (Synthroid) 200 mcg PO DAILY COUNT INCLUDES [facility] Last Admin: 10/07/18 09:40 Dose: 200 mcg Lorazepam (Ativan) 1 mg PO Q6H PRN; Protocol PRN Reason: Anxiety Last Admin: 10/06/18 18:13 Dose: 1 mg Lorazepam (Ativan) 1 mg IM Q6H PRN; Protocol PRN Reason: Anxiety/Agitation Magnesium Hydroxide (Milk Of Magnesia) 30 ml PO DAILY PRN PRN Reason: Constipation Last Admin: 10/07/18 17:06 Dose: 30 ml Nicotine (Nicoderm Cq) 1 patch TD DAILY RON Last Admin: 10/07/18 13:10 Dose: 1 patch Potassium Chloride (Potassium Chloride Oral Soln) 40 meq PO Q6H RON Stop: 10/08/18 02:46 Last Admin: 10/07/18 14:40 Dose: 40 meq Senna/Docusate Sodium (Senokot S 50 Mg-8.6 Mg) 1 tab PO DAILY RON Last Admin: 10/07/18 09:50 Dose: 1 tab Tramadol HCl (Ultram) 50 mg PO Q6H PRN PRN Reason: Pain, moderate (4-7) Last Admin: 10/06/18 18:13 Dose: 50 mg Zaleplon (Sonata) 5 mg PO HS PRN PRN Reason: Insomnia Results - Vital Signs Recent Vital Signs: Last Vital Signs Temp Pulse 79 10/06/18 18:13 Resp BP 132/80 10/07/18 09:40 Pulse Ox - Labs Result Diagrams: 10/07/18 07:30 Labs: Laboratory Results - last 24 hr 10/07/18 10/07/18 07:30 07:30 Sodium 142 Potassium 3.0 L Chloride 105 Carbon Dioxide 31 Anion Gap 9 L BUN 8 Creatinine 1.3 H Est GFR ( Amer) 51 Est GFR (Non-Af Amer) 43 Random Glucose 92 Fasting Glucose 92 Calcium 9.1 Total Bilirubin 0.9 AST 69 H ALT 45 Alkaline Phosphatase 92 Total Protein 8.2 Albumin 4.1 Globulin 4.1 Albumin/Globulin Ratio 1.0 L Triglycerides 250 H Cholesterol 362 H LDL Cholesterol Direct 195 H HDL Cholesterol 40 TSH 3rd Generation 171.00 H Attending/Attestation - Attestation I have personally seen and examined this patient.: Yes I have fully participated in the care of the patient.: Yes I have reviewed all pertinent clinical information: Yes Notes (Text): 10/07/18 19:03 Attending note; Patient seen and examined with resident in psychiatric floor. Patient is alert and awake. Complaining of dizziness at times. But was ambulating in the hallway. Did not like clonidine. Shortness of breath improved. Tolerating diet. Denies any nausea, vomiting. Patient is a 57-year-old female with a PMH of HIV on HAART, heroin abuse, hypothyroidism, COPD, and hypertension, active smoking, noncompliance with medication who presents to the ED with generalized weakness and shortness of breath to the medical floor. Patient was transferred to the psychiatric floor on 10/06/18. 1. Depression /anxiety:. Currently on Ativan, clonidine, Haldol, Prozac. Continue medications per psychiatrist. 2. HIV; patient stopped taking drugs due to depression. Continue genvoya. ID evaluation appreciated. 3. severe hypothyroidism; started on po synthroid. 4. Active smoking; smoking cessation is strongly advised. Started on NicoDerm patch. 5. Generalized weakness; patient is ambulating as per nursing staff. 6. Hypertension; continue Norvasc. Continue to monitor closely in psychiatric floor. Upon discharge patient will follow up with PMD DR. Cabrera. Patient is medically stable. Please reconsult as needed.
--- NOTE | 2018-10-07 13:21 | PCM.PSYCH ---
Initial Psychiatric Evaluation - Initial Psychiatric Evaluation Type of Admission: Voluntary Legal Status: Capacity (Patient has capacity to sign consent for treatment) Chief Complaint (in patient's own words): "I was feeling weak, I was not able to breath, I was feeling anxious, I had a lot of problems with me at home, I relapsed on heroin, I was trying to be off of it, I feel jumpy" Patient's Reaction to Hospitalization: Patient was transferred from the medical side for evaluation and stabilization of depressive symptoms, uncontrolled anxiety, inability to function. History of Present Illness and Precipitating Events: Shortly patient is a 57-year old -[place] female with a reported history of opioid use disorder, possible mood disorder due to general medical condition or substance-induced mood disorder, patient denied history of being admitted to the psychiatric inpatient unit, denied history of suicidal attempts, initially patient was admitted on the medical side for evaluation of weakness as well as shortness of breath, patient has multiple medical issues including HIV hypothyroidism, COPD, hypertension, patient was seen by psychiatrist Dr. Ballard as a sap pp consultant, patient presented to be depressed, anxious, patient required to be transferred to the psychiatric inpatient unit for medication management and observation and stabilization. Patient was seen today by the treatment team meeting room with mental health worker, patient presented to be with psychomotor retardation, poor personal hygiene, disorganized thoughts, very hard to interview due to all the above symptoms, patient has fair ADLs. Patient reported that 1 year ago she relapsed on heroin, snorting, she is using 4 bags a day, patient reported she was sober for 10 years prior to her relapse, patient denied history of being in rehabs or detoxes in the past. Patient them starts to mumble that she has a lot of problems at home, had difficulties to express herself, patient was talking something about her sister is living with her despite the fact that patient requested her to move, patient was jumping from one subject to another, which was alternating with periods of few minutes of silence. Patient smokes about one pack a day, counseling provided, nicotine patch was offered. UDS was positive for methadone as well as opioids. Patient said situation at home makes her feel very depressed, patient reported that she was staying in bed all day long, patient reported that she had difficulties to pay her bills. Patient denied hearing voices, denied seeing things, denied paranoid ideation but patient appears to be guarded and disorganized. Patient denied being abused, denied history of anxiety. Patient reported her generalized weakness as well as shortness of breath improving. Past psychiatric history: Patient denied history of being admitted to the psychiatric inpatient unit, denied history of suicidal attempts. This technical proposal writer was involved in to the patient care is consult on 06/2015, but then patient was also using drugs, and was trying to jump of the window while being intoxicated. Medical history: Patient has HIV, hypothyroidism, COPD, please see medical team notes for more detailed information. As per medical team discharge summary: PCP Dr Addie Garcia follow-up within the next 3-5 days after discharge. Please follow up with infectious disease physician Dr Celaya within the 1 week. Please resume all home medications and take as prescribed. Family history: Denied family history of mental illness As per staff patient required to be medicated yesterday at the evening time, Haldol/Ativan/clonidine. This technical proposal writer educated about treatment plan, patient said "I need to be on medication which will not make me feel like a zombie, I need to be up and about". Patient reported history of learning disability, she was not able to be graduated from high school, as per patient "I was mentally challenged". 10/07/18 07:30 Lab Results 10/07/18 07:30: TSH 3rd Generation 171.00 H 10/07/18 07:30: Sodium 142, Potassium 3.0 L, Chloride 105, Carbon Dioxide 31, Anion Gap 9 L, BUN 8, Creatinine 1.3 H, Est GFR ( Amer) 51, Est GFR (Non- Af Amer) 43, Random Glucose 92, Fasting Glucose 92, Calcium 9.1, Total Bilirubin 0.9, AST 69 H, ALT 45, Alkaline Phosphatase 92, Total Protein 8.2, Albumin 4.1, Globulin 4.1, Albumin/Globulin Ratio 1.0 L, Triglycerides 250 H, Cholesterol 362 H, LDL Cholesterol Direct 195 H, HDL Cholesterol 40 Vital Signs Pulse BP 10/06/18 18:13 79 164/106 H The patient failed the outpatient lower level of care: Yes Current Medications: Active Medications Generic Name Dose Route Start Last Admin Trade Name Freq PRN Reason Stop Dose Admin Acetaminophen 650 mg 10/06/18 17:18 Tylenol 325mg Tab PO Q6H PRN Pain, Mild (1-3) Al Hydrox/Mg Hydrox/Simethicone 30 ml 10/06/18 17:18 Maalox Plus 30 Ml PO DAILY PRN Indigestion / Heartburn Amlodipine Besylate 10 mg 10/07/18 08:45 Norvasc PO DAILY [facility] Atorvastatin Calcium 20 mg 10/07/18 08:45 Lipitor PO DAILY [facility] Citalopram Hydrobromide 10 mg 10/06/18 22:00 10/07/18 00:26 Celexa PO Not Given HS [facility] Clonidine HCl 0.1 mg 10/06/18 17:09 10/06/18 18:13 Catapres PO 0.1 mg Q12H PRN Administration Heroin Withdrawal Haloperidol Lactate 3 mg 10/06/18 17:20 10/06/18 18:25 Haldol PO 3 mg Q6H PRN Administration Agitation Protocol Haloperidol Lactate 3 mg 10/06/18 20:09 Haldol IM Q6H PRN Severe Agitation Protocol Home Med 1 unit 10/07/18 08:00 Home Med PO DAILY [facility] Levothyroxine Sodium 200 mcg 10/07/18 08:45 Synthroid PO DAILY [facility] Lorazepam 1 mg 10/06/18 17:11 10/06/18 18:13 Ativan PO 1 mg Q6H PRN Administration Anxiety Protocol Lorazepam 1 mg 10/06/18 20:11 Ativan IM Q6H PRN Anxiety/Agitation Protocol Magnesium Hydroxide 30 ml 10/06/18 17:18 Milk Of Magnesia PO DAILY PRN Constipation Potassium Chloride 40 meq 10/07/18 08:45 Potassium Chloride Oral Soln PO 10/08/18 02:46 Q6H [facility] Senna/Docusate Sodium 1 tab 10/07/18 08:45 Senokot S 50 Mg-8.6 Mg PO DAILY [facility] Tramadol HCl 50 mg 10/06/18 17:16 10/06/18 18:13 Ultram PO 50 mg Q6H PRN Administration Pain, moderate (4-7) Zaleplon 10 mg 10/06/18 20:08 Sonata PO HS PRN Insomnia Present on Admission - Present on Admission Any Indicators Present on Admission: No Review of Systems - Review of Systems Systems not reviewed;Unavailable: Acuity of Condition - Constitutional Constitutional: As Per HPI - EENT Eyes: As Per HPI Ears: As Per HPI Nose/Mouth/Throat: As Per HPI - Breasts Breasts: As Per HPI - Cardiovascular Cardiovascular: As Per HPI - Respiratory Respiratory: As Per HPI - Gastrointestinal Gastrointestinal: As Per HPI - Genitourinary Genitourinary: As Per HPI - Reproductive: Female Reproductive:Female: As Per HPI - Menstruation Menstruation: As Per HPI - Musculoskeletal Musculoskeletal: As Per HPI - Integumentary Integumentary: As Per HPI - Neurological Neurological: As Per HPI - Psychiatric Psychiatric: As Per HPI - Endocrine Endocrine: As Per HPI - Hematologic/Lymphatic Hematologic: As Per HPI Past Patient History - Past Psychiatric History Previous Treatment History: None Prior Professional Help: As per HPI Prior Psychiatric Treatment: As per HPI At [facility]: As per HPI Duration: As per HPI Nature of Treatment: As per HPI Explanation of prior treatment: As per HPI - PSYCHIATRIC Hx Anxiety: Yes Hx Depression: Yes Hx Substance Use: Yes - Infectious Disease Hx of Infectious Diseases: None - Tetanus Immunizations Tetanus Immunization: Unknown - Past Medical History & Family History Past Medical History?: Yes - CARDIAC Hx Cardiac Disorders: Yes Hx Hypertension: Yes - PULMONARY Hx Respiratory Disorders: Yes Hx Chronic Obstructive Pulmonary Disease (COPD): Yes - NEUROLOGICAL Hx Neurological Disorder: No - HEENT Hx HEENT Problems: Yes Hx Cataracts: Yes Other/Comment: BLIND L EYE - RENAL Hx Chronic Kidney Disease: No - ENDOCRINE/METABOLIC Hx Endocrine Disorders: Yes Hx Hypothyroidism: Yes - HEMATOLOGICAL/ONCOLOGICAL Hx Blood Disorders: Yes Hx Anemia: Yes - INTEGUMENTARY Hx Dermatological Problems: No - MUSCULOSKELETAL/RHEUMATOLOGICAL Hx Musculoskeletal Disorders: Yes Hx Herniated Disk: Yes (lower back) Hx Unsteady Gait: Yes - GASTROINTESTINAL Hx Gastrointestinal Disorders: Yes Hx Constipation: Yes Hx Gastroesophageal Reflux: Yes - GENITOURINARY/GYNECOLOGICAL Hx Genitourinary Disorders: No - SURGICAL HISTORY Hx Orthopedic Surgery: Yes Other/Comment: Uterine biopsy - ANESTHESIA Hx Anesthesia: Yes Hx Anesthesia Reactions: No Hx Malignant Hyperthermia: No Meds Allergies/Adverse Reactions: Allergies Allergy/AdvReac Type Severity Reaction Status Date / Time No Known Allergies Allergy Verified 10/06/18 21:28 Mental Status Examination - Personal Presentation Personal Presentation: Looks older than stated age - Affect Affect: Constricted, Flat - Motor Activity Motor Activity: Psychomotor Retardation - Reliability in Providing Information Reliability in Providing Information: Poor, due to alteration in thoughts, Poor, due to altered mood, Poor, due to cognitve impairment - Speech Speech: Disorganized - Mood Mood: Depressed - Formal Thought Process Formal Thought Process: Other (Patient was disorganized) - Obsessions/Compulsions Obsessions: None Compulsions: None - Cognitive Functions Orientation: Person, Place Sensorium: Alert Attention/Concentration: Easily distracted Abstract Thinking: [place] Estimate of Intelligence: Below average Judgement: Intact, as evidence by: Insight regarding need for hospitalization - Risk Risk: Self-mutilation, Diminished functioning - Strength & Assets Inventory Strength & Assets Inventory: Cooperative - Limitations Limitations: Other (HIV, substance abuse, multiple medical issues) Psychiatric Physical Exam - Physical Exam Reviewed and confirmed: Emergency Department Physical Exam Results - Vital Signs Recent Vital Signs: Last Vital Signs Temp Pulse 79 10/06/18 18:13 Resp BP 164/106 H 10/06/18 18:13 Pulse Ox - Labs Result Diagrams: 10/07/18 07:30 Labs: Laboratory Results - last 24 hr 10/07/18 07:30 Sodium 142 Potassium 3.0 L Chloride 105 Carbon Dioxide 31 Anion Gap 9 L BUN 8 Creatinine 1.3 H Est GFR ( Amer) 51 Est GFR (Non-Af Amer) 43 Random Glucose 92 Fasting Glucose 92 Calcium 9.1 Total Bilirubin 0.9 AST 69 H ALT 45 Alkaline Phosphatase 92 Total Protein 8.2 Albumin 4.1 Globulin 4.1 Albumin/Globulin Ratio 1.0 L Triglycerides 250 H Cholesterol 362 H LDL Cholesterol Direct 195 H HDL Cholesterol 40 - EKG Data EKG Interpreted by: ER Physician DSM Plan - DSM 5 DSM 5 Diagnosis: Rule out substance-induced mood disorder Rule out mood disorder due to general medical condition Rule out major depressive disorder with psychosis Polysubstance abuse and dependence - Recommended/Plan of Treatment Treatment Recommendations and Plan of Treatment: Milieu/structure/supportive therapy consultation for discharge plan and social issues Med management Prozac 20 mg daily for depression and anxiety Neurontin for mood stabilization Sonata as needed for sleep As needed medications, follow-up with medical team, follow-up with infectious disease team Family involvement Follow up on labs Will monitor closely Pt was educated about risk/benefits and alternatives of medications, coping strategies (safety plan, suicide prevention), relapse prevention, importance of follow up with psychiatrist and therapist, stay away from drugs/alcohol/smoking Projected ELOS: 7 days Prognosis: Guarded Discharge Plan and Discharge Criteria: Pt will be not depressed or manic, will be more hopeful, will be not psychotic or anxious, will be tolerating medications well, will not have major side effects, will be able to function, will not pose threat to self or others. - Tobacco Cessation Tobacco Use Status for the last 30 days: Heavy User(>=5 cigs &/or cigars/pipes daily) Tobacco Use Treatment Practical Counseling Provided: Yes Tobacco Use Treatment FDA-Approved Cessation Medication Provided: Yes Type of Medication Provided: Nicoderm CQ - Alcohol or Substance Abuse Does the patient have an Alcohol or Substance Abuse Disorder: Yes Initial Psych Certification - Initial Certification I certify that the inpatient psychiatric facility admission was medically necessary for either: Treatment which could reasonbly be expected to improve pt's condition I estimate of hospitalization is necessary for proper treatment of the patient: 7 Unit of Time: Days My plans for post-hospital care for this patient are: Dual diagnosis program, IOP
[2018-10-07] MEDS: Magnesium Hydroxide Susp 30 ml UD PO PRN (17:06)
--- NOTE | 2018-10-07 19:18 | CON ---
DATE: 10/07/2018 The patient is seen in the psychiatric floor this morning. She is comfortable. CHIEF COMPLAINT: Weakness for several days. 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 She has history of pulmonary nodules, hypothyroidism and who is admitted with shortness of breath, found to have viral upper respiratory tract and infection and now transferred to the psychiatric floor. REVIEW OF SYSTEMS: A 12-point review of systems is performed. PAST MEDICAL HISTORY: Significant for chronic obstructive lung disease, hypertension, left-eye blindness, hypothyroidism and pulmonary nodules. PAST SURGICAL HISTORY: Significant for left ankle surgery, uterine biopsy and 4 C-sections. ALLERGIES: THE PATIENT HAS NO KNOWN ALLERGIES. PHYSICAL EXAMINATION: VITAL SIGNS: The patient is seen in bed with a temperature 98, blood pressure is 120/70, respirations 16 and heart rate of 80. HEENT: Unremarkable. NECK: Supple. LUNGS: Decreased breath sounds. HEART: Normal, S1 and S2. ABDOMEN: Soft and nontender. LABORATORY DATA: Reveals the patient's white count is 6.9, hemoglobin of 11 and platelets of 140. The patient's low as patient has patient had within 2013 which was on 13%, in 2016 it was 28%, and 2017 it was on the T4 percent was 31%. The patient also had absolute CD4 count which was low. She had with 195 in 2013, 2016 was 866 and 2017 is CD4 count, and the patient had a viral load in 2014 was undetectable less than 20 and 2017 and twice no documented. The patient of positive HIV in any of this hospitalization, the patient's undetectable and hepatitis profile has been negative. ASSESSMENT AND PLAN: A 57-year-old female with acquired-immune deficiency syndrome, chronic obstructive lung disease, hypertension, left eye blindness, hypothyroidism, history of pulmonary nodules and who has currently on Genvoya. We will continue Genvoya, we will refer patient back to her human immunodeficiency virus childcare administrator. She states she is not sure of the name. We will order an HIV fourth generation test since we do not have one on record and continue the Genvoya at this time. We will follow with you. Jose Luis Duarte MD [facility] # [id number]
[2018-10-07 21:20] LABS: RAPID PLASMA REAGIN REACTIVE (NONREACTIVE)
[2018-10-08] MEDS: Potassium Chloride 40 mEq/30 ml LIQ UD PO SCH (04:41)
[2018-10-08] MEDS: Levothyroxine 200 MCG TAB PO SCH (07:13)
[2018-10-08 07:23] VITALS: RESP 20
[2018-10-08] MEDS: Docusate-Senna 50 mg-8.6 mg Tab PO SCH (09:40)
--- NOTE | 2018-10-08 12:46 | PCM.PYCHPN ---
Psychiatric Progress Note - Psychiatric Progress Note Patient seen today, length of contact: 30min Patient Chief Complaint: "Give me something activating, I do not want to be like a zombie" Problems Identified/Issues Discussed: Risk/benefits and alternatives of medications and ECT discussed, suicide/ homicide prevention, past psychiatric h/o, current psychiatric symptoms, medical problems, medications compliance, coping strategies, substance abuse h/o, relapse prevention, importance of follow up with psychiatrist and therapist, discharge plan. Medical Problems: Patient has a lot of medical issues including HIV, please see medical team notes for more detailed information. Diagnostic Results: 10/07/18 07:30 Lab Results 10/07/18 07:30: RPR Titer 1:1, RPR Reactive H 10/07/18 07:30: TSH 3rd Generation 171.00 H 10/07/18 07:30: Sodium 142, Potassium 3.0 L, Chloride 105, Carbon Dioxide 31, Anion Gap 9 L, BUN 8, Creatinine 1.3 H, Est GFR ( Amer) 51, Est GFR (Non- Af Amer) 43, Random Glucose 92, Fasting Glucose 92, Calcium 9.1, Total Bilirubin 0.9, AST 69 H, ALT 45, Alkaline Phosphatase 92, Total Protein 8.2, Albumin 4.1, Globulin 4.1, Albumin/Globulin Ratio 1.0 L, Triglycerides 250 H, Cholesterol 362 H, LDL Cholesterol Direct 195 H, HDL Cholesterol 40 Vital Signs Temp Pulse Resp BP 10/08/18 09:38 123/85 10/08/18 07:22 97.8 F 70 20 123/82 10/07/18 09:40 132/80 10/06/18 18:13 79 164/106 H DSM 5 Symptoms Update: Shortly patient is a 57-year old -[place] female with a reported history of opioid use disorder, possible mood disorder due to general medical condition or substance-induced mood disorder, patient denied history of being admitted to the psychiatric inpatient unit, denied history of suicidal attempts, initially patient was admitted on the medical side for evaluation of weakness as well as s hortness of breath, patient has multiple medical issues including HIV hypothyroidism, COPD, hypertension, patient was seen by psychiatrist Dr. Ballard as a actuarial consultant, patient presented to be depressed, anxious, patient required to be transferred to the psychiatric inpatient unit for medication management and observation and stabilization. Patient was seen today at the dining area, patient was observed eating, hygiene is poor, patient is emotionally labile, when she is this music writer started to cry that she does not want to feel like a "zombie", patient was complaining of lower extremity pain, patient appears to be depressed, tearful, difficulties to stay concentrated and focused, impulse is unpredictable. As per staff patient is emotionally labile, no agitation or aggression, patient has a tendency of refusing some medications. Patient is not participating in unit activities, self isolating. So far patient tolerates medications well, no side effects observed or reported, aims 0, no EPS. Impression: DSM 5 Diagnosis: Rule out substance-induced mood disorder Rule out mood disorder due to general medical condition Rule out major depressive disorder with psychosis Polysubstance abuse and dependence Medication Change: Yes Medical Record Reviewed: Yes Consults ordered or reviewed: Medical consult appreciated, see notes for more detailed information Infectious disease team. Follow-up with this patient, see notes Mental Status Examination - Cognitive Function Orientation: Person, Place Memory: Impaired Attention: Poor Concentration: Poor Association: Loose Fund of Knowledge: Poor - Mood Mood: Depressed - Affect Affect: Constricted, Flat - Formal Thought Process Formal Thought Process: Other (Patient was disorganized) - Suicidal Ideation Suicidal Ideation: No - Homicidal Ideation Homicidal Ideation: No Goal/Treatment Plan - Goal/Treatment Plan Need for Continued Stay: Remain at risks for inpatient hospitalization, Severe depression anxiety, Discharge may exacerbated symptoms, Severe functional impairment Progress Toward Problem(s) and Goals/Treatment Plan: Milieu/structure/supportive therapy SW consultation for discharge plan and social issues Med management Prozac 20 mg daily for depression and anxiety Neurontin for mood stabilization Sonata as needed for sleep As needed medications, follow-up with medical team, follow-up with infectious disease team Family involvement Follow up on labs Will monitor closely Pt was educated about risk/benefits and alternatives of medications, coping strategies (safety plan, suicide prevention), relapse prevention, importance of follow up with psychiatrist and therapist, stay away from drugs/alcohol/smoking Estimated Date of D/C: 10/12/18
--- NOTE | 2018-10-08 18:07 | PN ---
DATE: 10/08/2018 SUBJECTIVE: The patient is in bed, in no acute distress. The patient is seen earlier this morning. PHYSICAL EXAMINATION VITAL SIGNS: Temperature is 97, blood pressure is 120/80, respiratory rate of 20. HEENT: Examination of HEENT is unremarkable. NECK: Supple. LUNGS: Have decreased breath sounds. HEART: Normal S1 and S2. ABDOMEN: Soft. LABORATORY DATA: Reveals the patient's RPR is 1:1 positive. 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 We will check on the STA. We also check on an HIV fourth generation since the patient PCRs always been undetected. We will follow with you. Awaiting for STA. Jose Luis Duarte MD
[2018-10-09] MEDS: Magnesium Hydroxide Susp 30 ml UD PO PRN (00:25)
[2018-10-09] MEDS: Docusate-Senna 50 mg-8.6 mg Tab PO SCH (09:52)
[2018-10-09] MEDS: Levothyroxine 200 MCG TAB PO SCH (09:52)
--- NOTE | 2018-10-09 14:23 | PCM.PYCHPN ---
Psychiatric Progress Note - Psychiatric Progress Note Patient seen today, length of contact: 30min Patient Chief Complaint: "Give me something activating, I do not want to be like a zombie, I need my ensure as well " Problems Identified/Issues Discussed: Risk/benefits and alternatives of medications and ECT discussed, suicide/ homicide prevention, past psychiatric h/o, current psychiatric symptoms, medical problems, medications compliance, coping strategies, substance abuse h/o, relapse prevention, importance of follow up with psychiatrist and therapist, discharge plan. Medical Problems: Patient has a lot of medical issues including HIV, please see medical team notes for more detailed information. Diagnostic Results: 10/07/18 07:30 Lab Results 10/07/18 07:30: RPR Titer 1:1, RPR Reactive H 10/07/18 07:30: TSH 3rd Generation 171.00 H 10/07/18 07:30: Sodium 142, Potassium 3.0 L, Chloride 105, Carbon Dioxide 31, Anion Gap 9 L, BUN 8, Creatinine 1.3 H, Est GFR ( Amer) 51, Est GFR (Non- Af Amer) 43, Random Glucose 92, Fasting Glucose 92, Calcium 9.1, Total Bilirubin 0.9, AST 69 H, ALT 45, Alkaline Phosphatase 92, Total Protein 8.2, Albumin 4.1, Globulin 4.1, Albumin/Globulin Ratio 1.0 L, Triglycerides 250 H, Cholesterol 362 H, LDL Cholesterol Direct 195 H, HDL Cholesterol 40 Vital Signs Temp Pulse Resp BP 10/08/18 09:38 123/85 10/08/18 07:22 97.8 F 70 20 123/82 10/07/18 09:40 132/80 10/06/18 18:13 79 164/106 H DSM 5 Symptoms Update: Shortly patient is a 57-year old -[place] female with a reported history of opioid use disorder, possible mood disorder due to general medical condition or substance-induced mood disorder, patient denied history of being admitted to the psychiatric inpatient unit, denied history of suicidal attempts, initially patient was admitted on the medical side for evaluation of weakness as well as shortness of breath, patient has multiple medical issues including HIV hy pothyroidism, COPD, hypertension, patient was seen by psychiatrist Dr. 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 Patient was seen today at the treatment team meeting, patient presented with improved personal hygiene, patient reported that this editorial writer needs to give patient "something activating, because I cannot function, I feel very depressed, I want to sleep at night and up all day", pt reported that she wants to be on ensure and she was on it while being on the medical site. pt was advised that she will be seen by dietitian. patient appears to be depressed, tearful, difficulties to stay concentrated and focused, impulse is unpredictable. As per staff patient is emotionally labile, no agitation or aggression, patient has a tendency of refusing some medications. Patient is not participating in unit activities, self isolating. Patient has very poor insight into her addiction problems, patient does not feel that she needs to be followed up with dual diagnosis program, patient reported that her "HIV doctor will give me of all of the medications", patient was educated about the importance to stay sober and attend group meeting, medication management, counseling. Insight is very poor. So far patient tolerates medications well, no side effects observed or reported, aims 0, no EPS. Impression: DSM 5 Diagnosis: Rule out substance-induced mood disorder Rule out mood disorder due to general medical condition Rule out major depressive disorder with psychosis Polysubstance abuse and dependence Medication Change: Yes (prozac increased) Medical Record Reviewed: Yes Consults ordered or reviewed: Medical consult appreciated, see notes for more detailed information Infectious disease team. Follow-up with this patient, see notes Mental Status Examination - Cognitive Function Orientation: Person, Place Memory: Impaired Attention: Poor Concentration: Poor Association: Loose Fund of Knowledge: Poor - Mood Mood: Depressed - Affect Affect: Constricted, Flat - Formal Thought Process Formal Thought Process: Other (Patient was disorganized) - Suicidal Ideation Suicidal Ideation: No - Homicidal Ideation Homicidal Ideation: No Goal/Treatment Plan - Goal/Treatment Plan Need for Continued Stay: Remain at risks for inpatient hospitalization, Severe depression anxiety, Discharge may exacerbated symptoms, Severe functional impairment Progress Toward Problem(s) and Goals/Treatment Plan: Milieu/structure/supportive therapy SW consultation for discharge plan and social issues Med management Prozac 30 mg daily for depression and anxiety Neurontin for mood stabilization Sonata as needed for sleep Dietitian consult As needed medications, follow-up with medical team, follow-up with infectious disease team Family involvement Follow up on labs Will monitor closely Pt was educated about risk/benefits and alternatives of medications, coping strategies (safety plan, suicide prevention), relapse prevention, importance of follow up with psychiatrist and therapist, stay away from drugs/alcohol/smoking Estimated Date of D/C: 10/12/18
[2018-10-10] MEDS: Levothyroxine 200 MCG TAB PO SCH (07:39)
[2018-10-10] MEDS: Docusate-Senna 50 mg-8.6 mg Tab PO SCH (11:00)
[2018-10-10] MEDS: Hydrocerin(120 gm) TOP SCH (11:04)
--- NOTE | 2018-10-10 16:10 | PCM.PYCHPN ---
Psychiatric Progress Note - Psychiatric Progress Note Patient seen today, length of contact: 30min Patient Chief Complaint: "Give me something activating, I do not want to be like a zombie, I need my ensure as well, because of your stupid medications I cannot sleep " Problems Identified/Issues Discussed: Risk/benefits and alternatives of medications and ECT discussed, suicide/ homicide prevention, past psychiatric h/o, current psychiatric symptoms, medical problems, medications compliance, coping strategies, substance abuse h/o, relapse prevention, importance of follow up with psychiatrist and therapist, discharge plan. Medical Problems: Patient has a lot of medical issues including HIV, please see medical team notes for more detailed information. Diagnostic Results: 10/07/18 07:30 Lab Results 10/07/18 07:30: RPR Titer 1:1, RPR Reactive H 10/07/18 07:30: TSH 3rd Generation 171.00 H 10/07/18 07:30: Sodium 142, Potassium 3.0 L, Chloride 105, Carbon Dioxide 31, Anion Gap 9 L, BUN 8, Creatinine 1.3 H, Est GFR ( Amer) 51, Est GFR (Non- Af Amer) 43, Random Glucose 92, Fasting Glucose 92, Calcium 9.1, Total Bilirubin 0.9, AST 69 H, ALT 45, Alkaline Phosphatase 92, Total Protein 8.2, Albumin 4.1, Globulin 4.1, Albumin/Globulin Ratio 1.0 L, Triglycerides 250 H, Cholesterol 362 H, LDL Cholesterol Direct 195 H, HDL Cholesterol 40 Vital Signs Temp Pulse Resp BP 10/08/18 09:38 123/85 10/08/18 07:22 97.8 F 70 20 123/82 10/07/18 09:40 132/80 10/06/18 18:13 79 164/106 H DSM 5 Symptoms Update: Shortly patient is a 57-year old -[place] Citizen female with a reported history of opioid use disorder, possible mood disorder due to general medical condition or substance-induced mood disorder, patient denied history of being admitted to the psychiatric inpatient unit, denied history of suicidal attempts, initially p atient was admitted on the medical side for evaluation of weakness as well as shortness of breath, patient has multiple medical issues including HIV hypothyroidism, COPD, hypertension, patient was seen by psychiatrist Dr. Ballard as a economics consultant, patient presented to be depressed, anxious, patient required to be transferred to the psychiatric inpatient unit for medication management and observation and stabilization. Patient was seen today at the dining area with medical student, sonny cervantes with improved personal hygiene, patient reported that this insurance underwriter sales needs to give patient "something activating", at the same time patient stated "because of you stupid medications I cannot sleep", patient is demanding to be on Ensure, had difficulties to express herself, very concrete thought process, in the middle of the conversation patient was started crying with no obvious reasons, within few minutes becomes demanding. Patient is emotionally labile, unpredictable with her impulses. As per staff patient is emotionally labile, no agitation or aggression, patient has a tendency of refusing some medications. Patient is visible in the unit, observing, not participating in groups in any meaningful way. Patient has very poor insight into her addiction problems, patient does not feel that she needs to be followed up with dual diagnosis program, patient reported that her "HIV doctor will give me of all of the medications", patient was educated about the importance to stay sober and attend group meeting, medication management, counseling. Insight is very poor. So far patient tolerates medications well, no side effects observed or reported, aims 0, no EPS. Impression: DSM 5 Diagnosis: Rule out substance-induced mood disorder Rule out mood disorder due to general medical condition Rule out major depressive disorder with psychosis Polysubstance abuse and dependence Medication Change: Yes (prozac increased October 09, 2018) Medical Record Reviewed: Yes Mental Status Examination - Cognitive Function Orientation: Person, Place Memory: Impaired Attention: Poor Concentration: Poor Association: Loose Fund of Knowledge: Poor - Mood Mood: Depressed - Affect Affect: Constricted, Flat - Formal Thought Process Formal Thought Process: Other (Patient was disorganized) - Suicidal Ideation Suicidal Ideation: No - Homicidal Ideation Homicidal Ideation: No Goal/Treatment Plan - Goal/Treatment Plan Need for Continued Stay: Remain at risks for inpatient hospitalization, Severe depression anxiety, Discharge may exacerbated symptoms, Severe functional impa irment Progress Toward Problem(s) and Goals/Treatment Plan: Milieu/structure/supportive therapy SW consultation for discharge plan and social issues Med management Prozac 30 mg daily for depression and anxiety Neurontin for mood stabilization Sonata as needed for sleep 10mg hs for insomnia Dietitian consult As needed medications, follow-up with medical team, follow-up with infectious disease team Family involvement Follow up on labs Will monitor closely Pt was educated about risk/benefits and alternatives of medications, coping strategies (safety plan, suicide prevention), relapse prevention, importance of follow up with psychiatrist and therapist, stay away from drugs/alcohol/smoking Estimated Date of D/C: 10/12/18
[2018-10-11] MEDS: Levothyroxine 200 MCG TAB PO SCH (06:08)
[2018-10-11 06:58] VITALS: TEMP 98.3
[2018-10-11] MEDS: Hydrocerin(120 gm) TOP SCH (09:24)
[2018-10-11] MEDS: Docusate-Senna 50 mg-8.6 mg Tab PO SCH (09:25)
--- NOTE | 2018-10-11 12:08 | PCM.PYCHPN ---
Psychiatric Progress Note - Psychiatric Progress Note Patient seen today, length of contact: 30min Problems Identified/Issues Discussed: I reviewed assessment and recent notes. I am familiar with patient from my interview with her on the medical floor. At that time she endorsed depressive symptoms and denied any SI/ wishes. She is being treated on the psychiatric unit for depression and currently prescribed prozac 30 mg po daily as well as neurontin 300 tid and sonata 10 mg hs prn. Recent SW notes indicate that patient is requesting to be d/c'ed. Patient expressed that psychiatric medications were making her sluggish. Patient provided similar information to me this morning, indicated that she feels very tired/sleepy during the day and that it is difficult to sleep at night. Mood is better but energy levels are low. She continues to deny AVH/SI or HI. Patient put in a 48 hour letter today at 9:20 am. She was never considered to be a danger to herself by this provider though considering her stressors, psychiatric admission was recommended for stabilization. She remains oriented x3, coherent without perceptual disturbance. Presently patient does not require screening for involuntary commitment. Plan is for patient to be discharged tomorrow, AMA on her 48 hour letter. In the meantime, this provider decreased dose of neurontin as this medication can cause drowsiness. Prozac isn't generally associated with sedation (though not unheard of). Will continue to monitor and d/w patient. Diagnostic Results: Rule out substance-induced mood disorder Rule out mood disorder due to general medical condition Rule out major depressive disorder with psychosis Polysubstance abuse and dependence Medication Change: Yes ( decreased neurontin to just 300 mg po HS due to c/o daytime sedation) Medical Record Reviewed: Yes Mental Status Examination - Cognitive Function Orientation: Person, Place Memory: Impaired Attention: WNL Concentration: Poor Association: Loose Fund of Knowledge: Poor - Mood Mood: Depressed (better but tired) - Affect Affect: Constricted - Formal Thought Process Formal Thought Process: No Impairment - Suicidal Ideation Suicidal Ideation: No - Homicidal Ideation Homicidal Ideation: No Goal/Treatment Plan - Goal/Treatment Plan Need for Continued Stay: Remain at risks for inpatient hospitalization, Severe depression anxiety, Discharge may exacerbated symptoms, Severe functional impairment Progress Toward Problem(s) and Goals/Treatment Plan: * c/w current tx and plan * c/w prozac 30 mg po daily, decreased neurontin to just 300 mg po HS due to c/o daytime sedation * Vitals reviewed and noted below: Selected Entries 10/09/18 10/09/18 10/10/18 07:34 15:00 11:02 Temperature 98.9 F Pulse Rate 92 H 75 Respiratory 20 20 Rate Blood Pressure 135/98 H 114/77 120/85 10/10/18 16:00 Temperature Pulse Rate 73 Respiratory Rate Blood Pressure 107/76 * No new lab results noted thus far today * Presently patient does not require screening for involuntary commitment. Plan is for patient to be discharged tomorrow, AMA on her 48 hour letter. Estimated Date of D/C: 10/12/18
[2018-10-11 16:44] VITALS: PULSE 80
[2018-10-11] MEDS ORDERED: Petrolatum Oint Foilpak (5 gm) TOP PRN (18:29)
[2018-10-11] MEDS: Haloperidol Lactate 2 mg/ml Liquid PO PRN (23:46)
[2018-10-12] MEDS: Levothyroxine 200 MCG TAB PO SCH (06:26)
[2018-10-12] MEDS: Docusate-Senna 50 mg-8.6 mg Tab PO SCH (09:56)
[2018-10-12] MEDS: Hydrocerin(120 gm) TOP SCH (09:56)
[2018-10-12 10:15] VITALS: BP 132/96
== END 2018-10-12 14:45 | disposition left against medical advice (07) | DRG 426 ==
LOC: PSYC 15:57
PROVIDERS: ADMIT Psychiatry & Neurology Psychiatry; ATTEND Psychiatry & Neurology Psychiatry
DX: F32.9 Major depressive disorder, single episode, unspecified (principal); B20 Human immunodeficiency virus [HIV] disease; F06.30 Mood disorder due to known physiological condition, unspecified; J44.9 Chronic obstructive pulmonary disease, unspecified; F14.20 Cocaine dependence, uncomplicated; F11.20 Opioid dependence, uncomplicated; E87.6 Hypokalemia; F17.210 Nicotine dependence, cigarettes, uncomplicated; E03.9 Hypothyroidism, unspecified; I10 Essential (primary) hypertension; E78.5 Hyperlipidemia, unspecified; F41.9 Anxiety disorder, unspecified; H54.62 Unqualified visual loss, left eye, normal vision right eye; Z91.14 Patient's other noncompliance with medication regimen